=== PATIENT | male | born 1930 | race Caucasian/White ===

== ENCOUNTER 2016-07-12 14:39 | Inpatient (IN) | payer MEDICARE, BC ==
[2016-07-12] MEDS ORDERED: IV VANCOMYCIN PER PHARMACY 1 EACH MISC MISCELLANE PRN (17:48)
[2016-07-12] MEDS ORDERED: VANCOMYCIN 2,000 MG in SODIUM CHLORIDE 0.9% 500 ML IVPB ONE (18:00)
[2016-07-12 18:19] LABS: Basophils # (A) 0.1 k/uL (0-0.2); Basophils % (A) 1 %; CH 32.9; CHCM 34.5; Eosinophils # (A) 0.3 k/uL (0-0.7); Eosinophils % (A) 4 %; HCT 42.9 % (39.0-53.0); HDW 2.52; HGB 14.4 gm/dL (13.0-17.5); Luc # (Auto) 0.13; Luc % (Auto) 2; Lymphocytes # (A) 1.8 k/uL (1.0-4.8); Lymphocytes % (A) 26 %; MCH 32.3 pg (25.0-35.0); MCHC 33.6 g/dL (31.0-37.0); Mean Platelet Volume 7.5; Monocytes # (A) 0.6 k/uL (0-1.0); Monocytes % (A) 8 %; Neutrophils # (A) 4.2 k/uL (1.3-7.7); Neutrophils % (A) 60 %; RBC 4.47 m/uL (4.30-5.90); RDW 13.6 % (11.5-15.5); WBC (Perox) 7.04
[2016-07-12 18:27] LABS: ALT 29 U/L (21-72); AST 22 U/L (17-59); Alkaline Phosphatase 71 U/L (38-126); Anion Gap 9 mmol/L; Blood Urea Nitrogen 20 mg/dL (9-20); Calcium 8.1 mg/dL (8.4-10.2); Carbon Dioxide 29 mmol/L (22-30); Chloride 102 mmol/L (98-107); Glucose 99 mg/dL (74-99); Non-African American GFR(MDRD) >60 (>60 ml/min/1.73 sqM); Potassium 3.6 mmol/L (3.5-5.1); Sodium 140 mmol/L (137-145); Total Bilirubin 1.3 mg/dL (0.2-1.3); Total Protein 6.5 g/dL (6.3-8.2)
[2016-07-12] MEDS: SODIUM CHLORIDE 0.9% 1,000 ML IV SCH (18:44)
[2016-07-12 19:17] LABS: Erythrocyte Sedimentation Rate 19 mm/hr (0-15)
[2016-07-12] MEDS: FAMOTIDINE 20 MG TAB PO SCH (20:30)
[2016-07-12] MEDS: FUROSEMIDE 40 MG TAB PO SCH (20:32)
[2016-07-12] MEDS: POTASSIUM CHLORIDE ER 20 MEQ TAB.ER PO SCH (20:32)
[2016-07-12] MEDS: diphenhydrAMINE 50 MG/ML 1 ML VIAL IVP PRN (22:21)
[2016-07-12] MEDS: CLINDAMYCIN 600 MG in DEXTROSE 5% IN WATER 50 ML IVPB SCH ×2 (23:54)
[2016-07-13] MEDS: diphenhydrAMINE 50 MG/ML 1 ML VIAL IVP PRN (04:21)
[2016-07-13] MEDS: CLINDAMYCIN 600 MG in DEXTROSE 5% IN WATER 50 ML IVPB SCH ×2 (05:43)
[2016-07-13] MEDS: LEVOTHYROXINE 75 MCG TAB PO SCH (05:43)
[2016-07-13] MEDS ORDERED: VANCOMYCIN 2,000 MG in SODIUM CHLORIDE 0.9% 500 ML IVPB SCH (08:00)
--- NOTE | 2016-07-13 08:35 | HP ---
DATE OF ADMISSION: CHIEF COMPLAINT: An 86-year-old white male with significant severe cellulitis of the entire bilateral legs from the mid thighs down to the toes. HISTORY OF PRESENT ILLNESS: This 86-year-old white male with past medical history of hypertension, hypothyroidism and possible lymphedema presents with significant redness, swelling of the entire from the toes all the way up to the mid thighs bilaterally of significant and severe nature who has a large amount of edema at which time patient was admitted for IV vancomycin antibiotics and possibly a PICC line placement. Home medications include: 1. Clindamycin orally. 2. Klor-Con 20 mEq b.i.d. 3. Zestril 2.5 daily. 4. Synthroid 150 mcg daily. 5. Lasix 40 mg b.i.d. 6. Hydrocortisone cream topically b.i.d. SOCIAL HISTORY: He lives at the [facility]. Other social history, please see old chart. SURGERIES: See old chart. REVIEW OF SYSTEMS: Fourteen-point review of systems negative except for the skin as mentioned above. PHYSICAL EXAM: A disheveled, elderly looking gentleman who looks older than his stated age. Blood pressure is 120s to 130s over 60s to 70s. O2 sat is 94% to 95% on room air. Pulse is 70 to 74. Respiratory rate 16 to 18. Temperature 98.5. CARDIOVASCULAR: S1, S2. Lungs show wheezes x4. ENT: Within normal limits. Lungs show scattered wheeze x4. PSYCH: Fair mood and affect. INTEGUMENT: Shows severe redness 3+ pedal edema from the toes up to the mid thighs with significant redness, erythema with scaliness of the entire mid thigh all the way down to the toes bilaterally, significant and severe in nature with lymphedema-type changes. ABDOMEN: Distended due to obesity. He has a large ventral hernia in the mid abdomen region. PSYCH: He is alert and oriented x3. ENT: He has poor dentition. OPHTHALMOLOGIC: Pupils equal, round and reactive to light and accommodation. No scleral icterus. His BMI is over 40. His albumin level is low. ASSESSMENT: 1. Severe cellulitis and lymphedema-type changes to the extremities, IV vancomycin has been ordered. 2. Moderate protein calorie malnutrition. 3. Hypertension. 4. Hypothyroidism. 5. Ventral hernia. 6. Suspect possibly chronic obstructive pulmonary disease. Will order a chest x-ray on the patient and x-rays of his feet. Arterial Dopplers also have been ordered of his legs.
[2016-07-13] MEDS: SODIUM CHLORIDE 0.9% 1,000 ML IV SCH ×2 (09:49→22:07)
[2016-07-13] MEDS: POTASSIUM CHLORIDE ER 20 MEQ TAB.ER PO SCH ×2 (09:50→21:48)
[2016-07-13] MEDS: FUROSEMIDE 40 MG TAB PO SCH ×2 (09:50→21:48)
[2016-07-13] MEDS: LISINOPRIL 2.5 MG TAB PO SCH (09:50)
--- NOTE | 2016-07-13 12:02 | P.PN ---
Subjective 86-year-old gentleman being seen on rounds this morning. This is a follow-up visit on gentleman who was a direct admission from Dr. Hdz's office the patient was being seen for severe cellulitis involving the bilateral legs from mid thigh down to the toes with increase edema. Patient has a significant amount of lymphedema which the patient states he has had swelling in his legs for years but the swelling has become more increased with significant redness noted. The bilateral legs significant swelling noted dry scaly skin noted. Patient has on bilateral compression stockings which have been removed to inspect the skin the left great toe small ulcerative area noted slight odor scant amount of drainage Objective - Vital Signs Vital signs: Vital Signs Temp 99.1 F 07/13/16 07:00 Pulse 56 L 07/13/16 07:00 Resp 20 07/13/16 07:00 BP 112/70 07/13/16 07:00 Pulse Ox 94 L 07/13/16 07:00 Intake & Output 07/12/16 07/13/16 07/13/16 18:59 06:59 18:59 Intake Total 200 Balance 200 Weight 127.5 kg Intake: Oral 200 Other: Voiding Method Toilet Toilet Toilet Diaper Diaper # Voids 2 - Exam GENERAL APPEARANCE: 86-year-old male hard of hearing patient is alert, oriented , in no acute distress. VITAL SIGNS: Reviewed HEENT: Head is normocephalic and atraumatic. Pupils are equal and reactive. The nares are patent. Oropharynx is clear without lesions. NECK: Supple without lymphadenopathy. Traches midline. HEART: S1, S2. Regular rate and rhythm. No murmur noted LUNGS: No crackles or wheezes are heard. Sats are 94% on room air bilateral adequate air entry ABDOMEN: Soft, obese nontender, nondistended with good bowel sounds. No peritoneal signs. No palpable organomegaly or masses. Incontinent a urine EXTREMITIES: Upper extremities unremarkable the bilateral lower extremities from mid thigh down to the toes significant edema with dry scaly skin noted with redness . Radial pedal pulses are 2/4 bilaterally. NEUROLOGICAL: No focal deficits. Strength and sensation are grossly intact. - Labs CBC & Chem 7: 07/12/16 17:55 07/12/16 17:55 Labs: Abnormal Lab Results - Last 24 Hours (Table) 07/12/16 07/12/16 Range/Units 17:55 17:55 ESR 19 H (0-15) mm/hr Calcium 8.1 L (8.4-10.2) mg/dL Albumin 3.4 L (3.5-5.0) g/dL Assessment and Plan Plan: Impression Present on admission bilateral mid thigh to toes severe cellulitis with lymphedema changes Hypothyroid on supplements Hypertension Failed outpatient treatment for cellulitis bilateral lower extremities Hearing deficit Chronic urinary incontinence Plan Arterial Doppler studies ordered follow up on results Consult vascular service Dr. Rosario Consult infectious disease recommendations for IV antibiotics possible PICC line placement Consult infectious disease for wound care Resume home meds as appropriate Check labs in the morning DVT and GI prophylaxis Further recommendations pending will follow The above dictated assessment and findings were discussed with dr hdz . Impression and the plan of care have been dictated as directed. Madeline Kellogg nurse practitioner acting as a scribe for dr hdz
[2016-07-13 12:33] LABS: Hemoglobin A1C 5.2 % (4.2-6.1)
[2016-07-13] MEDS: ceFAZolin 2 GM in SODIUM CHLORIDE 0.9% 100 ML IVPB SCH ×3 (12:33→23:04)
[2016-07-13] MEDS: HEPARIN SODIUM,PORCINE 5,000 UNIT/ML 1 ML VIAL SQ SCH ×3 (12:33→23:04)
--- NOTE | 2016-07-13 14:00 | XR ---
EXAMINATION TYPE: XR chest 2V DATE OF EXAM: 07/13/2016 11:41 AM COMPARISON: 09/04/2012 HISTORY: 86-year-old male COPD and lower extremity swelling TECHNIQUE: Frontal and lateral views FINDINGS: Heart is borderline enlarged. Mild interstitial prominence is unchanged. Some strandy bibasilar atele ctasis. No consolidation or pleural effusion. IMPRESSION: Borderline heart size. There are chronic changes without acute process identified.
--- NOTE | 2016-07-13 19:53 | CONS ---
DATE OF CONSULTATION: 07/13/2016 REASON FOR CONSULTATION: Bilateral lower extremity cellulitis. HISTORY OF PRESENT ILLNESS: The patient is an 86-year-old male who has been sent to the ER from Dr. Jama's office with significant swelling or redness of bilateral lower extremity. 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 Currently under care of Dr. Jama. He visited to him with swelling and redness of his leg that has been going on for more than a week now. The patient has been complaining of some itching and pain to the leg area and a slight open area, which is draining some clear fluid with more pain described as dull 3 to 4 out of 10 and no radiation. Patient denied any fever. Some chills. The patient was diagnosed with bilateral lower extremity cellulitis. The patient was admitted to the hospital directly and was started on vancomycin; however, he was getting a dose of 2 grams at slightly faster rate and ended up developing significant itching. Vancomycin was discontinued. He was started on clindamycin. I was asked to see the patient for further recommendation regarding antibiotic therapy. REVIEW OF SYSTEMS: CONSTITUTIONAL: Positive for weakness. No fever or chills. EYES: No complaint. ENT: No complaint. RESPIRATORY: No complaint. GENITOURINARY: No complaint. GASTROINTESTINAL: No complaint. MUSCULOSKELETAL: No complaint. INTEGUMENTARY: As per HPI. PSYCHOLOGICAL: No complaint. ENDOCRINAL: No complaint. NEUROLOGICAL: No complaint. PAST MEDICAL HISTORY: Significant for hypertension, hypothyroidism, prostate disorder, and also chronic lower extremity venostasis dermatitis. PAST SURGICAL HISTORY: Prostate surgery. SOCIAL HISTORY: No history of smoking, drinking or drug abuse. Currently lives at [facility]. FAMILY HISTORY: No pertinent findings were noticed. ALLERGIES: AZITHROMYCIN AND PENICILLIN with rash. No history of anaphylaxis. VANCOMYCIN documented following last night's reaction. Medications currently include the patient is on clindamycin, Benadryl, Pepcid, Lasix, heparin, Synthroid, Zestril, K-Dur. On examination, blood pressure is 133/79 with a pulse of 71, temperature 99.8. He is 95% on room air. General description is an elderly male, lying in bed in no distress. No tachypnea or accessory muscles of respiration use. HEENT examination showed no pallor or scleral icterus. Oral mucous membrane dry. NECK: Trachea central. There is no thyromegaly. LUNGS: Unlabored breathing. Clear to auscultation anteriorly. HEART: S1, S2. Regular rate and rhythm. ABDOMEN: Soft. No tenderness. EXTREMITIES: Mild right lower extremity significant venostasis dermatitis with some erythema slightly warm to touch. Superficial ulceration. No significant slough tissue. SKIN: No rash or mass palpable. NEUROLOGICAL: Patient awake, alert, oriented x3. Mood and affect normal. LABS: Hemoglobin is 14.4, white count of 7 with a BUN of 20, creatinine 1.07. Electrolytes have been normal. Liver enzymes are normal. DIAGNOSTIC IMPRESSION AND PLAN: 1. Patient with bilateral lower extremity venostasis dermatitis with secondary cellulitis more likely from Gram-positive skin linnette in a patient who did have diffuse swelling and redness likely a streptococcal disease, clinically suspected for MRSA infection. 2. 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 PLAN: 1. Vancomycin can be taken off the patient's allergy chart. 2. Will discontinue clindamycin. 3. Will start the patient on cefazolin 2 grams q.8h. 4. Recommend whirlpool therapy to bilateral legs daily. Afterwards will recommend Jose wrap to keep the swelling down. 5. Will follow up on the clinical condition and cultures to further adjust the medication if needed. Family was present at the bedside. Their questions and concerns were answered.
[2016-07-13] MEDS: FAMOTIDINE 20 MG TAB PO SCH (21:48)
[2016-07-14] MEDS: LEVOTHYROXINE 75 MCG TAB PO SCH (06:37)
[2016-07-14] MEDS: ceFAZolin 2 GM in SODIUM CHLORIDE 0.9% 100 ML IVPB SCH ×2 (08:23→18:18)
[2016-07-14] MEDS: HEPARIN SODIUM,PORCINE 5,000 UNIT/ML 1 ML VIAL SQ SCH ×2 (08:23→18:18)
[2016-07-14] MEDS: LISINOPRIL 2.5 MG TAB PO SCH (08:24)
[2016-07-14] MEDS: POTASSIUM CHLORIDE ER 20 MEQ TAB.ER PO SCH ×2 (08:24→20:12)
[2016-07-14] MEDS: FUROSEMIDE 40 MG TAB PO SCH ×2 (08:24→20:12)
[2016-07-14 08:52] LABS: ALT 27 U/L (21-72); AST 18 U/L (17-59); Alkaline Phosphatase 66 U/L (38-126); Anion Gap 9 mmol/L; Blood Urea Nitrogen 15 mg/dL (9-20); Calcium 7.7 mg/dL (8.4-10.2); Carbon Dioxide 26 mmol/L (22-30); Chloride 107 mmol/L (98-107); Glucose 111 mg/dL (74-99); Non-African American GFR(MDRD) 57 (>60 ml/min/1.73 sqM); Potassium 3.6 mmol/L (3.5-5.1); Sodium 142 mmol/L (137-145); Total Bilirubin 1.1 mg/dL (0.2-1.3); Total Protein 5.7 g/dL (6.3-8.2)
--- NOTE | 2016-07-14 09:57 | P.GSCN ---
History of Present Illness Consult date: 07/14/16 Reason for Consult: Bilateral lower extremity cellulitis Requesting physician: Riley Jmaa History of present illness: This is an 86-year-old gentleman who was admitted with progressive refractory swelling and redness of both lower legs. He has a long history of swelling. He has however become much more red and painful in recent days. He states that he is not a diabetic. He is a nonsmoker. Review of Systems All systems: negative - Constitutional Reports weakness, Denies chronic pain, Denies fever, Denies weight loss - EENT Eyes: denies blurred vision Ears, nose, mouth and throat: Denies dysphagia - Cardiovascular Reports decreased exercise tolerance, Reports dyspnea on exertion, Reports edema , Denies chest pain, Denies orthopnea, Denies paroxysmal nocturnal dyspnea, Denies shortness of breath - Respiratory Denies cough, Denies cough with sputum, Denies hemoptysis - Gastrointestinal Reports as per HPI, Denies coffee ground emesis, Denies hematochezia, Denies jaundice, Denies melena - Genitourinary Denies dysuria, Denies hematuria - Integumentary Denies rash, Denies unusual bruising - Neurological Denies headaches, Denies syncope - Hematologic/Lymphatic Denies easy bleeding, Denies easy bruising, Denies lymphedema - Allergic/Immunologic Denies anaphylaxis, Denies angioedema, Denies urticaria Past Medical History Past Medical History: Cancer, Hypertension, Memory Impairment, Prostate Disorder , Thyroid Disorder Additional Past Medical History / Comment(s): PER PAST MEDICAL HX 2013:PROSTATE CANCER 2010(SX DONE), INCONT OF URINE WEARS A BRIEF, LYMPH EDEMA JUDY LEGS(LEGS WRAPPED), PVD, LT CATARACT-(PT DID'NT REMEBER THIS" History of Any Multi-Drug Resistant Organisms: None Reported Past Surgical History: Hernia Repair, Prostate Surgery Additional Past Surgical History / Comment(s): RT CATARACT(PT DID'NT REMEMEBR THIS) Past Anesthesia/Blood Transfusion Reactions: Motion Sickness Past Psychological History: No Psychological Hx Reported Additional Psychological History / Comment(s): 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"[facility]" Smoking Status: Never smoker Past Alcohol Use History: None Reported Past Drug Use History: None Reported - Past Family History Father Family Medical History: Unable to Obtain Mother Family Medical History: Unable to Obtain Medications and Allergies Home Medications Medication Instructions Recorded Confirmed Type Lisinopril [Zestril] 2.5 mg PO DAILY 06/10/15 07/12/16 History Clindamycin Unknown Dose 4 tab PO DAILY 07/12/16 07/12/16 History Furosemide [Lasix] 40 mg PO BID 07/12/16 07/12/16 History Hydrocortisone Cream 1 applic TOPICAL BID 07/12/16 07/12/16 History [Hydrocortisone 1% Cream] Levothyroxine Sodium [Synthroid] 150 mcg PO DAILY 07/12/16 07/12/16 History Potassium Chloride [Klor-Con 20] 20 meq PO BID 07/12/16 07/12/16 History Allergies Allergy/AdvReac Type Severity Reaction Status Date / Time azithromycin [From Zithromax] Allergy Unknown Verified 07/12/16 17:40 Penicillins Allergy Rash/Hives Verified 06/10/15 00:39 strawberry Allergy Rash/Hives Verified 06/10/15 00:39 vancomycin Allergy Rash/Hives Verified 07/12/16 22:15 Surgical - Exam Osteopathic Statement: *. No significant issues noted on an osteopathic structural exam other than those noted in the History and Physical/Consult. Vital Signs Temp Pulse Resp BP Pulse Ox 98.1 F 74 18 134/74 95 07/12/16 16:24 07/12/16 16:24 07/12/16 16:24 07/12/16 16:24 07/12/16 16:24 - General well developed, well nourished, no distress, obese - Eyes normal ocular movement, no icteric - ENT no hearing loss, no congestion - Neck no masses, no bruits, trachea midline - Respiratory normal expansion, normal respiratory effort, clear to auscultation - Cardiovascular Rhythm: regular - Abdomen Abdomen: soft, non tender, no guarding, no rigid, no rebound - Integumentary Both lower legs are ruborous from just below the knees. There is a lot of dry scaly slough skin. The swelling is drastically improved. There is no weeping at this time or open ulcerations. no rash, no abnormal pigmentation - Neurologic no disoriented, no combative - Musculoskeletal Utilizes a walker for ambulation - Psychiatric oriented to time, oriented to person, oriented to place, speech is normal, memory intact Results - Labs 07/12/16 17:55 07/14/16 08:13 Abnormal Lab Results - Last 24 Hours (Table) 07/14/16 Range/Units 08:13 Glucose 111 H (74-99) mg/dL Calcium 7.7 L (8.4-10.2) mg/dL Total Protein 5.7 L (6.3-8.2) g/dL Albumin 2.9 L (3.5-5.0) g/dL Diabetes panel 07/12/16 07/14/16 Range/Units 17:55 08:13 Sodium 142 (137-145) mmol/L Potassium 3.6 (3.5-5.1) mmol/L Chloride 107 (98-107) mmol/L Carbon Dioxide 26 (22-30) mmol/L BUN 15 (9-20) mg/dL Creatinine 1.21 (0.66-1.25) mg/dL Glucose 111 H (74-99) mg/dL Hemoglobin A1c 5.2 (4.2-6.1) % Calcium 7.7 L (8.4-10.2) mg/dL AST 18 (17-59) U/L ALT 27 (21-72) U/L Alkaline Phosphatase 66 (38-126) U/L Total Protein 5.7 L (6.3-8.2) g/dL Albumin 2.9 L (3.5-5.0) g/dL Calcium panel 07/14/16 Range/Units 08:13 Calcium 7.7 L (8.4-10.2) mg/dL Albumin 2.9 L (3.5-5.0) g/dL Pituitary panel 07/14/16 Range/Units 08:13 Sodium 142 (137-145) mmol/L Potassium 3.6 (3.5-5.1) mmol/L Chloride 107 (98-107) mmol/L Carbon Dioxide 26 (22-30) mmol/L BUN 15 (9-20) mg/dL Creatinine 1.21 (0.66-1.25) mg/dL Glucose 111 H (74-99) mg/dL Calcium 7.7 L (8.4-10.2) mg/dL Adrenal panel 07/14/16 Range/Units 08:13 Sodium 142 (137-145) mmol/L Potassium 3.6 (3.5-5.1) mmol/L Chloride 107 (98-107) mmol/L Carbon Dioxide 26 (22-30) mmol/L BUN 15 (9-20) mg/dL Creatinine 1.21 (0.66-1.25) mg/dL Glucose 111 H (74-99) mg/dL Calcium 7.7 L (8.4-10.2) mg/dL Total Bilirubin 1.1 (0.2-1.3) mg/dL AST 18 (17-59) U/L ALT 27 (21-72) U/L Alkaline Phosphatase 66 (38-126) U/L Total Protein 5.7 L (6.3-8.2) g/dL Albumin 2.9 L (3.5-5.0) g/dL Assessment and Plan (1) Bilateral lower leg cellulitis Status: Acute Plan: This patient has done very nicely with inpatient therapy. He has been on antibiotics. He is currently afebrile. The swelling in the legs is very much controlled. At this time I would recommend that his therapies be focused on limiting the swelling. #1 on the short-term basis I would continue to keep the legs wrapped with double length 4 inch Jose wraps. #2 on the long-term I would consider having him fit for CircAid or comprafit Velcro compression stockings, which are bit easier to applied. #3 I would keep the patient with legs elevated whenever he is not ambulating and whenever it is not essential for him to be upright to eat or go to the bathroom. #4 I would hold on the whirlpools for now, these tend to dry out the skin and that can result in some cracks, especially on the feet. #5 the skin of the feet and lower legs can be moistened with Eucerin cream or similar product #6 antibiotics could be transferred to oral or discontinued. I have discussed this with the patient and he appears to understand the recommendations. Prognosis is somewhat guarded in view of his obesity, age, and somewhat debilitated status.
[2016-07-14] MEDS: SODIUM CHLORIDE 0.9% 1,000 ML IV SCH ×2 (10:24→23:20)
[2016-07-14] MEDS ORDERED: MINERAL OIL-WHITE PETROLATUM 120 GM JAR TOPICAL PRN (12:02)
--- NOTE | 2016-07-14 14:00 | P.PN ---
Subjective 86-year-old male being seen on rounds this morning is currently resting in bed. The dressings to the bilateral lower extremities removed. There is a decrease in the swelling compared to omission in the bilateral lower legs. Vascular's recommendations noted. There recommending keep in the legs wrapped. Long-term would consider having patient fit for citcaid or alcohol compression stockings which might be easier for the patient to apply. In recommending moisturizing the bilateral lower extremities with eucerin ointment or similar product. This was discussed with the patient patient did verbalize an understanding. In addition the patient is being followed by infectious disease Dr. Walker. Recommendations were reviewed. We'll continue with the current plan of care will continue with the IV as ordered Objective - Vital Signs Vital signs: Vital Signs Temp 98.3 F 07/14/16 07:00 Pulse 61 07/14/16 07:00 Resp 24 07/14/16 07:00 BP 124/66 07/14/16 07:00 Pulse Ox 96 07/14/16 07:00 Intake & Output 07/13/16 07/14/16 07/14/16 18:59 06:59 18:59 Intake Total 200 500 Balance 200 500 Intake: Oral 200 500 Other: Voiding Method Toilet Toilet Toilet Diaper Diaper Diaper # Voids 3 4 # Bowel Movements 2 - Exam Physical exam 86-year-old male resting comfortably in bed appears in no acute distress pleasant cooperative oriented 3 hard of hearing Lungs essentially clear with adequate air movement on room air no cough Heart S1-S2 audible and regular Abdomen obese soft nontender reports no frequent stooling no nausea vomiting Extremities there is a significant improvement in the edema to the bilateral lower extremities bilateral redness persist. The skin is dry and scaly. No calf tenderness - Labs CBC & Chem 7: 07/12/16 17:55 07/14/16 08:13 Labs: Abnormal Lab Results - Last 24 Hours (Table) 07/14/16 Range/Units 08:13 Glucose 111 H (74-99) mg/dL Calcium 7.7 L (8.4-10.2) mg/dL Total Protein 5.7 L (6.3-8.2) g/dL Albumin 2.9 L (3.5-5.0) g/dL Assessment and Plan Plan: Impression Present on admission bilateral mid thigh to toes severe cellulitis with lymphedema changes Hypothyroid on supplements Hypertension Failed outpatient treatment for cellulitis bilateral lower extremities Hearing deficit Chronic urinary incontinence Plan Arterial Doppler studies ordered follow up on results Recommendations cardiovascular reviewed noted and appreciated Keep legs elevated kefzol 2 g IV as ordered per infectious disease Resume home meds as appropriate Check labs in the morning DVT and GI prophylaxis Further recommendations pending will follow The above dictated assessment and findings were discussed with dr hdz . Impression and the plan of care have been dictated as directed. Madeline Kellgog nurse practitioner acting as a scribe for dr hdz
[2016-07-14] MEDS: FAMOTIDINE 20 MG TAB PO SCH (20:12)
[2016-07-15] MEDS: ceFAZolin 2 GM in SODIUM CHLORIDE 0.9% 100 ML IVPB SCH ×4 (00:18→23:06)
[2016-07-15] MEDS: HEPARIN SODIUM,PORCINE 5,000 UNIT/ML 1 ML VIAL SQ SCH ×4 (00:19→23:07)
[2016-07-15] MEDS: LEVOTHYROXINE 75 MCG TAB PO SCH (06:35)
[2016-07-15] MEDS: LISINOPRIL 2.5 MG TAB PO SCH (08:09)
[2016-07-15] MEDS: POTASSIUM CHLORIDE ER 20 MEQ TAB.ER PO SCH ×2 (08:09→20:17)
[2016-07-15] MEDS: FUROSEMIDE 40 MG TAB PO SCH ×2 (08:09→20:17)
--- NOTE | 2016-07-15 08:15 | PN ---
DATE OF SERVICE: 07/14/2016 Reason for follow-up is bilateral lower extremity venostasis ulcer and cellulitis. INTERVAL HISTORY: The patient is afebrile. Has been breathing comfortably. Denies any worsening pain in the leg area. Denies having any chest pain, shortness of breath or cough. No abdominal pain or diarrhea. On examination, blood pressure is 150/80 with a pulse of 62, temperature 97.8. He is 97% on room air. General description is an elderly male, lying in bed in no distress. RESPIRATORY SYSTEM: Unlabored breathing. Clear to auscultation anteriorly. HEART: S1, S2. Regular rate and rhythm. ABDOMEN: Soft, no tenderness. Bilateral lower extremity swelling and redness and some dry skin with some skin breakdown on the toes area, but no purulence. LABS: BUN of 15, creatinine 1.21. DIAGNOSTIC IMPRESSION AND PLAN: Patient with bilateral lower extremity venostasis ulcer and cellulitis. Patient at this time will continue with the cefazolin along with an Jose wrap to keep the swelling down and Aquacel silver dressing to the open area. Will re-evaluate the patient tomorrow. Continue supportive care. PEPE
[2016-07-15 09:03] LABS: ALT 25 U/L (21-72); AST 21 U/L (17-59); Alkaline Phosphatase 60 U/L (38-126); Anion Gap 8 mmol/L; Blood Urea Nitrogen 15 mg/dL (9-20); Calcium 7.7 mg/dL (8.4-10.2); Carbon Dioxide 27 mmol/L (22-30); Chloride 107 mmol/L (98-107); Glucose 118 mg/dL (74-99); Non-African American GFR(MDRD) >60 (>60 ml/min/1.73 sqM); Potassium 3.8 mmol/L (3.5-5.1); Sodium 142 mmol/L (137-145); Total Bilirubin 1.1 mg/dL (0.2-1.3); Total Protein 5.7 g/dL (6.3-8.2)
[2016-07-15] MEDS: SODIUM CHLORIDE 0.9% 1,000 ML IV SCH (12:29)
[2016-07-15] MEDS: NYSTATIN 100,000UNIT/GM CREAM 30 GM TUBE TOPICAL SCH (16:45)
[2016-07-15] MEDS: TRIAMCINOLONE 0.1% CREAM 80 GM TUBE TOPICAL SCH ×2 (16:45→20:17)
[2016-07-15] MEDS: FAMOTIDINE 20 MG TAB PO SCH (20:17)
[2016-07-16] MEDS: SODIUM CHLORIDE 0.9% 1,000 ML IV SCH ×2 (02:00→15:12)
[2016-07-16] MEDS: LEVOTHYROXINE 75 MCG TAB PO SCH (06:44)
[2016-07-16] MEDS: POTASSIUM CHLORIDE ER 20 MEQ TAB.ER PO SCH ×2 (07:44→20:34)
[2016-07-16] MEDS: HEPARIN SODIUM,PORCINE 5,000 UNIT/ML 1 ML VIAL SQ SCH ×3 (07:44→23:24)
[2016-07-16] MEDS: FUROSEMIDE 40 MG TAB PO SCH ×2 (07:44→20:34)
[2016-07-16] MEDS: ceFAZolin 2 GM in SODIUM CHLORIDE 0.9% 100 ML IVPB SCH ×3 (07:44→23:24)
[2016-07-16] MEDS: LISINOPRIL 2.5 MG TAB PO SCH (07:44)
[2016-07-16 08:54] LABS: ALT 25 U/L (21-72); AST 25 U/L (17-59); Alkaline Phosphatase 63 U/L (38-126); Anion Gap 10 mmol/L; Blood Urea Nitrogen 17 mg/dL (9-20); Calcium 7.9 mg/dL (8.4-10.2); Carbon Dioxide 25 mmol/L (22-30); Chloride 107 mmol/L (98-107); Glucose 90 mg/dL (74-99); Non-African American GFR(MDRD) >60 (>60 ml/min/1.73 sqM); Sodium 142 mmol/L (137-145); Total Bilirubin 0.8 mg/dL (0.2-1.3); Total Protein 5.6 g/dL (6.3-8.2)
--- NOTE | 2016-07-16 09:02 | PN ---
DATE OF SERVICE: 07/15/2016 Reason for follow-up is bilateral lower extremity cellulitis and ulceration. INTERVAL HISTORY: The patient is afebrile. Has been breathing comfortably. Denies significant chest pain, shortness of breath or cough. No abdominal pain or any worsening pain in his bilateral legs area. No drainage. On examination, blood pressure is 141/79, pulse of 55, temperature is 97.6, he is 96% on room air. General description is an elderly male, lying in bed in no distress. RESPIRATORY SYSTEM: Unlabored breathing. Clear to auscultation anteriorly. HEART: S1, S2. Regular rate and rhythm. ABDOMEN: Soft, no tenderness. Mild ulcer with erythematous patches. No worsening. LABS: BUN of 15, creatinine 1.04. DIAGNOSTIC IMPRESSION AND PLAN: Patient with bilateral lower extremity venostasis dermatitis with a question of cellulitis. At this time we will apply Mycolog cream to the erythematous patches on the leg followed by an Jose wrap to keep the swelling down. Aquacel Silver to the superficial ulceration. Continue supportive care. MTDD
--- NOTE | 2016-07-16 11:28 | PN ---
CHIEF COMPLAINT: White male with extreme bilateral lower extremity venostasis ulcers, cellulitis, states he is improving with decreased redness and swelling. Blood pressure 150s over 80, temperature 97, pulse 60s, respiratory rate ( ). CARDIOVASCULAR: Scattered wheeze. HEART: S1, S2. ABDOMEN: Soft. EXTREMITIES: Shows some skin breakdown in the toe areas. Bilateral lower extremity swelling and redness. Some skin dryness. Creatinine 1.21, BUN 15. ASSESSMENT: Bilateral lower extremity venostasis ulcers and cellulitis from the knees down. Continue with Aquacel silver to open areas. Jose wraps will be given. IV antibiotics will be given. Please see further orders.
[2016-07-16] MEDS: TRIAMCINOLONE 0.1% CREAM 80 GM TUBE TOPICAL SCH ×2 (11:50→20:33)
[2016-07-16] MEDS: NYSTATIN 100,000UNIT/GM CREAM 30 GM TUBE TOPICAL SCH ×2 (11:51→20:34)
[2016-07-16] MEDS: FAMOTIDINE 20 MG TAB PO SCH (20:34)
[2016-07-17 02:26] VITALS: RESP 20
[2016-07-17] MEDS: SODIUM CHLORIDE 0.9% 1,000 ML IV SCH ×2 (05:01→06:40)
[2016-07-17] MEDS: LEVOTHYROXINE 75 MCG TAB PO SCH (06:39)
[2016-07-17 07:23] VITALS: BP 110/56; PULSE 57; TEMP 96
[2016-07-17 08:17] LABS: ALT 30 U/L (21-72); AST 30 U/L (17-59); Alkaline Phosphatase 60 U/L (38-126); Anion Gap 8 mmol/L; Blood Urea Nitrogen 16 mg/dL (9-20); Calcium 7.8 mg/dL (8.4-10.2); Carbon Dioxide 26 mmol/L (22-30); Chloride 107 mmol/L (98-107); Glucose 96 mg/dL (74-99); Non-African American GFR(MDRD) >60 (>60 ml/min/1.73 sqM); Potassium 3.7 mmol/L (3.5-5.1); Sodium 141 mmol/L (137-145); Total Bilirubin 0.8 mg/dL (0.2-1.3); Total Protein 5.6 g/dL (6.3-8.2)
[2016-07-17] MEDS: ceFAZolin 2 GM in SODIUM CHLORIDE 0.9% 100 ML IVPB SCH (09:21)
[2016-07-17] MEDS: HEPARIN SODIUM,PORCINE 5,000 UNIT/ML 1 ML VIAL SQ SCH (09:22)
[2016-07-17] MEDS: LISINOPRIL 2.5 MG TAB PO SCH (09:23)
[2016-07-17] MEDS: FUROSEMIDE 40 MG TAB PO SCH (09:23)
[2016-07-17] MEDS: POTASSIUM CHLORIDE ER 20 MEQ TAB.ER PO SCH (09:23)
--- NOTE | 2016-07-17 11:56 | P.DS ---
Providers Date of admission: 07/12/16 16:03 Expected date of discharge: 07/17/16 Attending physician: Riley Jama Consults: 07/12/16 17:17 Consult Physician Routine Consulting Provider: Carmel Walker Consult Reason/Comments: bilateral leg cellulitis Do you want consulting provider notified?: Already Contacted 07/13/16 10:12 Consult Physician Urgent Consulting Provider: Darvin Rosario Consult Reason/Comments: Recommendations lymphedema bilateral lower extremities Do you want consulting provider notified?: Yes Primary care physician: [facility] Course: his is a follow-up visit on jeanna who was a direct admission from Dr. Jama's office the patient was being seen for severe cellulitis involving the bilateral legs from mid thigh down to the toes with increase edema. Patient has a significant amount of lymphedema which the patient states he has had swelling in his legs for years but the swelling has become more increased with significant redness noted. The bilateral legs significant swelling noted dry scaly skin noted. On admission Patient has on bilateral compression stockings which have been removed to inspect the skin the left great toe small ulcerative area noted slight odor scant amount of drainage Infectious disease did participate in the plan of care patient was seen by Dr. Walker with recommendations noted and appreciated. Additionally vascular Dr. Rosario see patient for the progressive refractory swelling and redness involving the bilateral lower extremities. Vascular recommended that there would be no vascular intervention at this time they would recommend the patient keep his legs elevated at all times. Consider having the patient fitted for compraft Velcro compression stockings. Keep the skin in the lower extremities moist using Kenalog cream daily. PT OT did participate in the plan of care. The family was requesting that the patient be transferred to subacute rehab. [facility]. Patient was felt to be stable and appropriate proceed with a discharge Impression Present on admission bilateral mid thigh to toes severe cellulitis with lymphedema changes Hypothyroid on supplements Hypertension Failed outpatient treatment for cellulitis bilateral lower extremities Hearing deficit Chronic urinary incontinence Present on admission increase edema with progressive refractory swelling and redness involving the both lower extremities Bilateral lower extremities venous stasis dermatitis with cellulitis not ruled out The above dictated assessment and findings were discussed with Dr. Jama Impression and the plan of care have been dictated as directed. Madeline Kellogg nurse practitioner acting as a scribe for Dr. Jama Plan - Discharge Summary New Discharge Prescriptions: Cephalexin [Keflex] 500 mg PO Q8HR #30 cap Discharge Medication List Lisinopril [Zestril] 2.5 mg PO DAILY 06/10/15 [History] Furosemide [Lasix] 40 mg PO BID 07/12/16 [History] Levothyroxine Sodium [Synthroid] 150 mcg PO DAILY 07/12/16 [History] Potassium Chloride [Klor-Con 20] 20 meq PO BID 07/12/16 [History] Cephalexin [Keflex] 500 mg PO Q8HR #30 cap 07/17/16 [Rx] Heparin Sodium,Porcine [Heparin Sodium] 5,000 unit SQ Q8HR vial 07/17/16 [Rx] Nystatin 100,000Unit/gm Cream [Mycostatin Cream] 1 applic TOPICAL BID applic [Rx] Triamcinolone 0.1% Cream [Kenalog] 1 applic TOPICAL BID #0 applic 07/17/16 [Rx] Follow up Appointment(s)/Referral(s): Riley Jama MD [Primary Care Provider] - 07/18/16 Discharge Disposition: TRANSFER TO SNF/ECF
[2016-07-17] MEDS: TRIAMCINOLONE 0.1% CREAM 80 GM TUBE TOPICAL SCH (13:10)
[2016-07-17] MEDS: NYSTATIN 100,000UNIT/GM CREAM 30 GM TUBE TOPICAL SCH (13:10)
--- NOTE | 2016-07-17 14:40 | PN ---
DATE OF SERVICE: 07/17/2016 Reason for follow-up: Bilateral lower extremity cellulitis and wound. INTERVAL HISTORY: The patient is afebrile. He has been feeling better, breathing comfortably. Denies significant chest pain, cough, no abdominal pain or any worsening pain in the legs area. On examination, blood pressure is 133/70 with a pulse of 59, temperature 97.4. He is 96% on room air. GENERAL DESCRIPTION: Is an elderly male up in the chair in no distress. RESPIRATORY SYSTEM: Unlabored breathing. Clear to auscultation anteriorly. HEART: S1, S2 regular rate and rhythm. ABDOMEN: soft, no tenderness. Bilateral legs have been wrapped up by the RN and did mention no redness or any drainage. LABS: BUN of 17, creatinine 0.97. DIAGNOSTIC IMPRESSION AND PLAN: Patient with bilateral lower extremity venostasis dermatitis as well as ulceration along with cellulitis , continue Cefazolin along with dressing and to reevaluate the wound tomorrow. Continue supportive care. PEPE
--- NOTE | 2016-07-17 19:29 | PN ---
DATE OF SERVICE: 07/16/2016 SUBJECTIVE: This is a white male who was admitted with severe cellulitis and lymphadenitis of the legs. He remains on IV Kefzol. He is getting wound dressing changes, Mycolog cream to the erythematous patches of the legs are being applied, Jose wraps, Aquacel Silver. Continuing on IV antibiotics. CARDIOVASCULAR: S1, S2. LUNGS: Clear. Scattered wheeze x4. GI: Soft. Blood pressure is 140s over 70s, pulse 50s, temperature 97.6, 96% on room air. HEART: Regular rate, rhythm. ABDOMEN: Soft. EXTREMITIES: Erythematous patches. Decreased swelling in the legs. Dr. Rosario's recommendations were reviewed. ASSESSMENT: 1. Acute cellulitis, lymphadenitis and open wounds of the legs, on IV antibiotics at this time and antibiotic cream and fungal cream. 2. Hypocalcemia, unclear etiology. 3. Protein-calorie malnutrition, moderate. Continue current treatment. Follow up in next 24 to 48 hours. Possible discharge.
--- NOTE | 2016-07-17 20:49 | PN ---
DATE OF SERVICE: 07/17/2016 REASON FOR FOLLOWUP: Bilateral lower extremity venostasis dermatitis and cellulitis. INTERVAL HISTORY: The patient is afebrile. He is feeling better, breathing comfortably. Denies any pain in his neck area. Denies any chest pain or shortness of breath or cough. No diarrhea. On examination, blood pressure is 110/56 with pulse of 87, temperature 96. He is 96% on room air. General description is an elderly male lying in bed in no distress. RESPIRATORY SYSTEM: Unlabored breathing. Clear to auscultation anteriorly. HEART: S1, S2. Regular rate and rhythm. ABDOMEN: Soft. No tenderness. Bilateral leg overall swelling and redness have improved. No drainage. LABS: BUN of 16, creatinine 0.99. DIAGNOSTIC IMPRESSION AND PLAN: Patient with bilateral lower extremity venostasis dermatitis and cellulitis showing overall improvement on cefazolin. Plan to finish therapy with p.o. Keflex along with Mycolog cream to the bilateral legs. Continue supportive care. Plan of care was discussed with the nurse practitioner for the primary team.
--- NOTE | 2016-07-19 11:51 | P.ARTDOP ---
Arterial Doppler LOWER EXTREMITY ARTERIAL DOPPLER: DATE OF SERVICE: 07/13/16 Reason for study: Cellulitis. Doppler waveforms: Multiphasic bilaterally throughout. Pulse volume recording: Fairly normal configuration. Pressure gradients: []. Ankle-brachial indices: []. Toe pressures: [] on the right, [] on the left Impression: Limited study as no pressures were taken. Waveforms look quite adequate and is suspected to be a normal study. Clinical correlation recommended..
== END 2016-07-17 14:27 | DRG 603 ==
LOC: 4MS4W 16:03
PROVIDERS: ADMIT Family Medicine; ATTEND Family Medicine
DX: L03.115 Cellulitis of right lower limb (principal); E44.0 Moderate protein-calorie malnutrition; L97.919 Non-pressure chronic ulcer of unspecified part of right lower leg with unspecified severity; L97.929 Non-pressure chronic ulcer of unspecified part of left lower leg with unspecified severity; E83.51 Hypocalcemia; J44.9 Chronic obstructive pulmonary disease, unspecified; E03.9 Hypothyroidism, unspecified; K43.9 Ventral hernia without obstruction or gangrene; I10 Essential (primary) hypertension; I73.9 Peripheral vascular disease, unspecified; I89.0 Lymphedema, not elsewhere classified; L03.116 Cellulitis of left lower limb; R32 Unspecified urinary incontinence; H91.90 Unspecified hearing loss, unspecified ear; I87.8 Other specified disorders of veins; I87.2 Venous insufficiency (chronic) (peripheral); Z79.899 Other long term (current) drug therapy; Z88.1 Allergy status to other antibiotic agents; Z88.0 Allergy status to penicillin; Z85.46 Personal history of malignant neoplasm of prostate
CPT/HCPCS: 71020; 80053; 80061; 82330; 83036; 83880; 84443; 85025; 85652; 93005; 93923

== ENCOUNTER 2016-09-21 11:15 | Emergency (ER) | payer MEDICARE, BC ==
[2016-09-21] MEDS ORDERED: SODIUM CHLORIDE 0.9% 1,000 ML IV STA (11:24)
[2016-09-21 12:02] LABS: Basophils # (A) 0.1 k/uL (0-0.2); Basophils % (A) 1 %; CH 33.4; CHCM 34.1; Eosinophils # (A) 0.3 k/uL (0-0.7); Eosinophils % (A) 4 %; HDW 2.53; HGB 13.6 gm/dL (13.0-17.5); Luc # (Auto) 0.19; Luc % (Auto) 3; Lymphocytes # (A) 1.7 k/uL (1.0-4.8); Lymphocytes % (A) 25 %; MCH 32.7 pg (25.0-35.0); MCHC 33.2 g/dL (31.0-37.0); MCV 98.5 fL (80.0-100.0); Mean Platelet Volume 6.7; Monocytes # (A) 0.5 k/uL (0-1.0); Monocytes % (A) 7 %; Neutrophils # (A) 4.1 k/uL (1.3-7.7); Neutrophils % (A) 61 %; RBC 4.16 m/uL (4.30-5.90); RDW 14.1 % (11.5-15.5); WBC 6.8 k/uL (3.8-10.6)
[2016-09-21 12:12] LABS: ALT 27 U/L (21-72); AST 24 U/L (17-59); Alkaline Phosphatase 72 U/L (38-126); Anion Gap 9 mmol/L; Blood Urea Nitrogen 21 mg/dL (9-20); Calcium 8.5 mg/dL (8.4-10.2); Carbon Dioxide 25 mmol/L (22-30); Chloride 106 mmol/L (98-107); Glucose 99 mg/dL (74-99); Magnesium 1.9 mg/dL (1.6-2.3); Non-African American GFR(MDRD) >60 (>60 ml/min/1.73 sqM); Potassium 3.8 mmol/L (3.5-5.1); Sodium 140 mmol/L (137-145); Total Bilirubin 0.9 mg/dL (0.2-1.3); Total Protein 6.6 g/dL (6.3-8.2)
--- NOTE | 2016-09-21 12:53 | US ---
EXAMINATION TYPE: US venous doppler duplex LE BI DATE OF EXAM: 09/21/2016 12:41 PM COMPARISON: NONE CLINICAL HISTORY: Pain. SIDE PERFORMED: Bilateral TECHNIQUE: The lower extremity deep venous system is examined utilizing real time linear array sonog cinthia with graded compression, doppler sonography and color-flow sonography. VESSELS IMAGED: External Iliac Vein (EIV) Common Femoral Vein Deep Femoral Vein Greater Saphenous Vein * Femoral Vein Popliteal Vein Small Saphenous Vein * Proximal Calf Veins (* superficial vessels) Patient of large body habitus with extensive swelling Right Leg: Negative for DVT Left Leg: Negative for DVT IMPRESSION: No evidence for DVT.
--- NOTE | 2016-09-21 13:48 | ED ---
Extremity Problem HPI - General Chief complaint: Extremity Problem,Nontraumatic Stated complaint: DVT Time Seen by Provider: 09/21/16 11:15 Source: patient, EMS, RN notes reviewed Mode of arrival: EMS - History of Present Illness Initial comments: This is a 86-year-old male who was sent in for evaluation for bilateral lower extremity swelling more so on the right than the left he denies any chest pain shortness breath fevers he does have occasional chills no other symptoms. MD Complaint: extremity pain, extremity swelling - Related Data Home Medications Medication Instructions Recorded Confirmed Lisinopril [Zestril] 2.5 mg PO DAILY 06/10/15 09/21/16 Furosemide [Lasix] 80 mg PO QAM 07/12/16 09/21/16 Levothyroxine Sodium [Synthroid] 150 mcg PO DAILY 07/12/16 09/21/16 Potassium Chloride [Klor-Con 20] 20 meq PO BID 07/12/16 09/21/16 Furosemide [Lasix] 40 mg PO AC-SUPPER 09/21/16 09/21/16 Sulfamethox-Tmp 800-160Mg [Bactrim 1 tab PO Q12HR 09/21/16 09/21/16 DS 800-160 mg] Previous Rx's Medication Instructions Recorded Clindamycin [Cleocin] 300 mg PO Q6H #40 capsule 09/21/16 Allergies Allergy/AdvReac Type Severity Reaction Status Date / Time azithromycin [From Zithromax] Allergy Unknown Verified 07/12/16 17:40 Penicillins Allergy Rash/Hives Verified 06/10/15 00:39 strawberry Allergy Rash/Hives Verified 06/10/15 00:39 vancomycin Allergy Rash/Hives Verified 07/12/16 22:15 Review of Systems ROS Statement: Those systems with pertinent positive or pertinent negative responses have been documented in the HPI. ROS Other: All systems not noted in ROS Statement are negative. Past Medical History Past Medical History: Cancer, Hypertension, Memory Impairment, Prostate Disorder , Thyroid Disorder Additional Past Medical History / Comment(s): PER PAST MEDICAL HX 2013:PROSTATE CANCER 2010(SX DONE), INCONT OF URINE WEARS A BRIEF, LYMPH EDEMA JUDY LEGS(LEGS WRAPPED), PVD, LT CATARACT-(PT DID'NT REMEBER THIS" History of Any Multi-Drug Resistant Organisms: None Reported Past Surgical History: Hernia Repair, Prostate Surgery Additional Past Surgical History / Comment(s): RT CATARACT(PT DID'NT REMEMEBR THIS) Past Anesthesia/Blood Transfusion Reactions: Motion Sickness Past Psychological History: No Psychological Hx Reported Additional Psychological History / Comment(s): PT STATED HE SERVED IN [employer]( [employer]), WORKED FOR [employer]. 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 Absent: scleral icterus, conjunctival injection, periorbital swelling ENT exam: Present: normal exam, mucous membranes moist Neck exam: Present: normal inspection. Absent: tenderness, meningismus, lymphadenopathy Respiratory exam: Present: normal lung sounds bilaterally. Absent: respiratory distress, wheezes, rales, rhonchi, stridor Cardiovascular Exam: Present: regular rate, normal rhythm, normal heart sounds. Absent: systolic murmur, diastolic murmur, rubs, gallop, clicks GI/Abdominal exam: Present: soft, normal bowel sounds. Absent: distended, tenderness, guarding, rebound, rigid Extremities exam: Present: full ROM, tenderness, normal capillary refill, calf tenderness, other (Increase erythema and warmth to the right lower extremity). Absent: pedal edema, joint swelling Back exam: Present: normal inspection Neurological exam: Present: alert, oriented X3, CN II-XII intact Psychiatric exam: Present: normal affect, normal mood Skin exam: Present: warm, dry, intact, normal color. Absent: rash Course Vital Signs 09/21/16 09/21/16 09/21/16 11:22 12:16 15:00 Temperature 97.9 F 97.1 F L Pulse Rate 73 62 69 Respiratory 18 18 16 Rate Blood Pressure 128/61 184/88 144/78 O2 Sat by Pulse 95 92 L 97 Oximetry Medical Decision Making - Medical Decision Making I did discuss findings with the patient he would like to go home he'll be given some IV clindamycin and sent home on oral medication he does have visiting nurses at home. He is a follow-up and return if needed - Lab Data Result diagrams: 09/21/16 11:56 09/21/16 11:56 Lab Results 09/21/16 09/21/16 09/21/16 Range/Units 11:56 11:56 11:56 WBC 6.8 (3.8-10.6) k/uL RBC 4.16 L (4.30-5.90) m/uL Hgb 13.6 (13.0-17.5) gm/dL Hct 41.0 (39.0-53.0) % MCV 98.5 (80.0-100.0) fL MCH 32.7 (25.0-35.0) pg MCHC 33.2 (31.0-37.0) g/dL RDW 14.1 (11.5-15.5) % Plt Count 220 (150-450) k/uL Neutrophils % 61 % Lymphocytes % 25 % Monocytes % 7 % Eosinophils % 4 % Basophils % 1 % Neutrophils # 4.1 (1.3-7.7) k/uL Lymphocytes # 1.7 (1.0-4.8) k/uL Monocytes # 0.5 (0-1.0) k/uL Eosinophils # 0.3 (0-0.7) k/uL Basophils # 0.1 (0-0.2) k/uL D-Dimer (<0.60) mg/L FEU Sodium 140 (137-145) mmol/L Potassium 3.8 (3.5-5.1) mmol/L Chloride 106 (98-107) mmol/L Carbon Dioxide 25 (22-30) mmol/L Anion Gap 9 mmol/L BUN 21 H (9-20) mg/dL Creatinine 1.02 (0.66-1.25) mg/dL Est GFR (MDRD) Af Amer >60 (>60 ml/min/1.73 sqM) Est GFR (MDRD) Non-Af >60 (>60 ml/min/1.73 sqM) Glucose 99 (74-99) mg/dL Plasma Lactic Acid Len 1.3 (0.7-2.0) mmol/L Calcium 8.5 (8.4-10.2) mg/dL Magnesium 1.9 (1.6-2.3) mg/dL Total Bilirubin 0.9 (0.2-1.3) mg/dL AST 24 (17-59) U/L ALT 27 (21-72) U/L Alkaline Phosphatase 72 (38-126) U/L Total Protein 6.6 (6.3-8.2) g/dL Albumin 3.2 L (3.5-5.0) g/dL 09/21/16 Range/Units 11:56 WBC (3.8-10.6) k/uL RBC (4.30-5.90) m/uL Hgb (13.0-17.5) gm/dL Hct (39.0-53.0) % MCV (80.0-100.0) fL MCH (25.0-35.0) pg MCHC (31.0-37.0) g/dL RDW (11.5-15.5) % Plt Count (150-450) k/uL Neutrophils % % Lymphocytes % % Monocytes % % Eosinophils % % Basophils % % Neutrophils # (1.3-7.7) k/uL Lymphocytes # (1.0-4.8) k/uL Monocytes # (0-1.0) k/uL Eosinophils # (0-0.7) k/uL Basophils # (0-0.2) k/uL D-Dimer 1.41 H (<0.60) mg/L FEU Sodium (137-145) mmol/L Potassium (3.5-5.1) mmol/L Chloride (98-107) mmol/L Carbon Dioxide (22-30) mmol/L Anion Gap mmol/L BUN (9-20) mg/dL Creatinine (0.66-1.25) mg/dL Est GFR (MDRD) Af Amer (>60 ml/min/1.73 sqM) Est GFR (MDRD) Non-Af (>60 ml/min/1.73 sqM) Glucose (74-99) mg/dL Plasma Lactic Acid Len (0.7-2.0) mmol/L Calcium (8.4-10.2) mg/dL Magnesium (1.6-2.3) mg/dL Total Bilirubin (0.2-1.3) mg/dL AST (17-59) U/L ALT (21-72) U/L Alkaline Phosphatase (38-126) U/L Total Protein (6.3-8.2) g/dL Albumin (3.5-5.0) g/dL - EKG Data -: EKG Interpreted by Me EKG shows normal: sinus rhythm (Sinus rhythm rate of 68. Interval 182 QRS duration 78 QT/QTC of 412/438 low-voltage QRS st-t wave changes.) - Radiology Data Radiology results: report reviewed (I did review the imaging and reports no acute findings.), image reviewed Disposition Clinical Impression: Cellulitis of right leg, History of peripheral edema Disposition: HOME SELF-CARE Condition: Good Instructions: Cellulitis (ED), Leg Edema (ED) Prescriptions: Clindamycin [Cleocin] 300 mg PO Q6H #40 capsule
[2016-09-21] MEDS ORDERED: CLINDAMYCIN 600 MG in DEXTROSE 5% IN WATER 50 ML IVPB STA ×2 (14:36)
[2016-09-21 15:09] VITALS: BP 144/78; PULSE 69; RESP 16; TEMP 97.1
== END 2016-09-21 16:11 | disposition home or self-care (01) ==
LOC: EC 11:15
DX: L03.115 Cellulitis of right lower limb (principal); I10 Essential (primary) hypertension; E07.9 Disorder of thyroid, unspecified; Z85.46 Personal history of malignant neoplasm of prostate; Z79.899 Other long term (current) drug therapy; Z88.1 Allergy status to other antibiotic agents; Z88.0 Allergy status to penicillin; Z91.018 Allergy to other foods
CPT/HCPCS: 36415; 80053; 83605; 83735; 85025; 85379; 87040; 93005; 93970; 96365; 99284

== ENCOUNTER 2017-01-10 03:59 | Inpatient (IN) | payer MEDICARE, BC ==
[2017-01-10 05:02] LABS: Basophils # (A) 0.1 k/uL (0-0.2); Basophils % (A) 0 %; CH 32.9; CHCM 34.4; Eosinophils # (A) 0.2 k/uL (0-0.7); Eosinophils % (A) 1 %; HCT 42.5 % (39.0-53.0); HDW 2.42; HGB 14.3 gm/dL (13.0-17.5); Luc # (Auto) 0.07; Luc % (Auto) 0; Lymphocytes % (A) 6 %; MCH 32.4 pg (25.0-35.0); MCHC 33.6 g/dL (31.0-37.0); MCV 96.4 fL (80.0-100.0); Mean Platelet Volume 7.1; Monocytes # (A) 0.6 k/uL (0-1.0); Monocytes % (A) 4 %; Neutrophils # (A) 15.4 k/uL (1.3-7.7); Neutrophils % (A) 89 %; RBC 4.41 m/uL (4.30-5.90); RDW 14.8 % (11.5-15.5); WBC 17.4 k/uL (3.8-10.6); WBC (Perox) 16.89
[2017-01-10 05:10] LABS: INR 1.2 (<1.2); Partial Thromboplastin Time 28.3 sec (22.0-30.0); Prothrombin Time 12.1 sec (9.0-12.0)
[2017-01-10 05:13] LABS: ALT 33 U/L (21-72); AST 28 U/L (17-59); Alkaline Phosphatase 95 U/L (38-126); Anion Gap 11 mmol/L; Blood Urea Nitrogen 20 mg/dL (9-20); Calcium 8.5 mg/dL (8.4-10.2); Carbon Dioxide 24 mmol/L (22-30); Chloride 106 mmol/L (98-107); Glucose 103 mg/dL (74-99); Magnesium 1.9 mg/dL (1.6-2.3); Non-African American GFR(MDRD) >60 (>60 ml/min/1.73 sqM); Potassium 3.6 mmol/L (3.5-5.1); Sodium 141 mmol/L (137-145); Total Bilirubin 1.1 mg/dL (0.2-1.3); Total Protein 7.4 g/dL (6.3-8.2)
[2017-01-10 05:14] LABS: Appearance,Urine Cloudy (Clear); Bacteria,Urine Occasional /hpf; Bilirubin,Urine Negative (Negative); Glucose,Urine (UA) Negative (Negative); Ketones,Urine Negative (Negative); Leukocyte Esterase,Urine Negative (Negative); Mucus,Urine Rare /hpf; Nitrite,Urine Negative (Negative); PH, Urine 7.5 (5.0-8.0); Particle Count 5706; Protein,Urine Negative (Negative); RBC,Urine 1 /hpf (0-5); Specific Gravity,Urine 1.012 (1.001-1.035); Squamous Epithelial Cell,Urine 2 /hpf (0-4); UA Billing (MACRO vs. MICRO) MICRO; Urobilinogen,Urine <2.0 mg/dL (<2.0); WBC,Urine 2 /hpf (0-5)
[2017-01-10 05:28] LABS: Creatine Kinase 121 U/L (55-170)
[2017-01-10 05:41] LABS: Creatine Kinase MB 1.1 ng/mL (0.0-2.4); Troponin I <0.012 ng/mL (0.000-0.034)
--- NOTE | 2017-01-10 05:41 | XR ---
EXAM: XR Chest, 1 View CLINICAL HISTORY: Reason: weakness TECHNIQUE: Single portable frontal view of the chest. COMPARISON: 07/13/16 two-view chest FINDINGS: Lungs: Left diaphragm and retrocardiac region are less well seen, some of which may be on a technical basis, although could include the presence of basilar atelectasis/infiltrate and/or small left pleural effusion. The left upper and midlung field, right lung are free of focal infiltrate. Pleural space: The right pleural spaces clear. No pneumothorax is seen. Heart: Cardiomegaly is likely stable allowing for current portable versus prior nonportable exam. Mediastinum: Mediastinal contours are also probably stable allowing for current portable previous nonportable exam, including aortic ectasia. Bones/joints: Degenerative changes. No acute displaced fracture. IMPRESSION: 1. Diminished visualization of the left base and diaphragm. While some of this may be on a technical basis, the possibility of underlying basilar atelectasis or infiltrate, and/or small left pleural effusion is to be considered. Lateral view could be obtained at time of follow-up. 2. Grossly stable appearance of the cardiomediastinal silhouette allowing for current portable technique, as above.
[2017-01-10] MEDS ORDERED: SODIUM CHLORIDE 0.9% 2,000 ML IV ONE (05:54)
--- NOTE | 2017-01-10 07:13 | ED ---
Lower Extremity Injury HPI - General Chief Complaint: Weakness Stated Complaint: weakness Time Seen by Provider: 01/10/17 04:01 Source: patient, EMS Mode of arrival: EMS Limitations: no limitations - History of Present Illness Initial Comments: This patient is an 86-year-old man who comes to be evaluated for by lateral leg swelling and pain. He has history of lymphedema. He states that over the past few days he has had increased swelling, now redness of the eye lateral lower legs. The patient has also had some generalized weakness and fatigue. He was uncertain if he had a fever. He denies chest pain, dyspnea, nausea vomiting MD Complaint: leg injury -: days(s) Injury: Leg: Left, Right - Related Data Home Medications Medication Instructions Recorded Confirmed Lisinopril [Zestril] 2.5 mg PO DAILY 06/10/15 09/21/16 Furosemide [Lasix] 80 mg PO QAM 07/12/16 09/21/16 Levothyroxine Sodium [Synthroid] 150 mcg PO DAILY 07/12/16 09/21/16 Potassium Chloride [Klor-Con 20] 20 meq PO BID 07/12/16 09/21/16 Furosemide [Lasix] 40 mg PO AC-SUPPER 09/21/16 09/21/16 Sulfamethox-Tmp 800-160Mg [Bactrim 1 tab PO Q12HR 09/21/16 09/21/16 DS 800-160 mg] Previous Rx's Medication Instructions Recorded Clindamycin [Cleocin] 300 mg PO Q6H #40 capsule 09/21/16 Allergies Allergy/AdvReac Type Severity Reaction Status Date / Time azithromycin [From Zithromax] Allergy Unknown Verified 01/10/17 04:11 Penicillins Allergy Rash/Hives Verified 01/10/17 04:11 strawberry Allergy Rash/Hives Verified 01/10/17 04:11 vancomycin Allergy Rash/Hives Verified 01/10/17 04:11 Review of Systems ROS Statement: Those systems with pertinent positive or pertinent negative responses have been documented in the HPI. ROS Other: All systems not noted in ROS Statement are negative. Constitutional: Reports: weakness. Denies: fever, chills Respiratory: Denies: cough, dyspnea, wheezes Cardiovascular: Reports: edema. Denies: chest pain, palpitations, syncope Gastrointestinal: Denies: abdominal pain, nausea, vomiting Genitourinary: Denies: dysuria, hematuria Musculoskeletal: Denies: back pain Skin: Reports: change in color. Denies: rash Neurological: Denies: headache, weakness, numbness Past Medical History Past Medical History: Cancer, Hypertension, Memory Impairment, Prostate Disorder , Thyroid Disorder Additional Past Medical History / Comment(s): PER PAST MEDICAL HX 2013:PROSTATE CANCER 2010(SX DONE), INCONT OF URINE WEARS A BRIEF, LYMPH EDEMA JUDY LEGS(LEGS WRAPPED), PVD, LT CATARACT-(PT DID'NT REMEBER THIS" History of Any Multi-Drug Resistant Organisms: None Reported Past Surgical History: Hernia Repair, Prostate Surgery Additional Past Surgical History / Comment(s): RT CATARACT(PT DID'NT REMEMEBR THIS) Past Anesthesia/Blood Transfusion Reactions: Motion Sickness Past Psychological History: No Psychological Hx Reported Smoking Status: Never smoker Past Alcohol Use History: None Reported Past Drug Use History: None Reported - Past Family History Father Family Medical History: Unable to Obtain Mother Family Medical History: Unable to Obtain General Exam Limitations: no limitations General appearance: alert, in no apparent distress Head exam: Present: atraumatic, normocephalic Eye exam: Present: normal appearance. Absent: scleral icterus, conjunctival injection Neck exam: Present: normal inspection Respiratory exam: Present: normal lung sounds bilaterally. Absent: respiratory distress, wheezes, rales, rhonchi, stridor Cardiovascular Exam: Present: regular rate, normal rhythm, normal heart sounds. Absent: systolic murmur, diastolic murmur, rubs, gallop GI/Abdominal exam: Present: soft. Absent: distended, tenderness, guarding, rebound Extremities exam: Present: other (Patient has chronic stasis changes bilaterally. There is marked edema below the knees bilaterally. There is warmth and erythema consistent with cellulitis. The patient does have a small decubitus ulcer to the posterior the left leg which is weeping.) Back exam: Absent: CVA tenderness (R), CVA tenderness (L) Neurological exam: Present: alert Skin exam: Present: warm, dry, erythema. Absent: normal color, rash Course Vital Signs 01/10/17 01/10/17 01/10/17 04:04 05:07 05:24 Temperature 99.8 F H Pulse Rate 75 83 Respiratory 22 15 18 Rate Blood Pressure 142/85 133/78 O2 Sat by Pulse 94 L 93 L Oximetry 01/10/17 01/10/17 06:18 06:40 Temperature 99.4 F Pulse Rate 75 108 H Respiratory 16 17 Rate Blood Pressure 139/60 131/73 O2 Sat by Pulse 96 95 Oximetry Medical Decision Making - Medical Decision Making Patient is an 86-year-old man in with bilateral circumferential cellulitis of the lower portion of the legs. He does list a number of ALLERGIES to antibiotics. The patient is admitted to the [facility] and will have infectious disease consult. - Lab Data Result diagrams: 01/10/17 04:44 01/10/17 04:44 Lab Results 01/10/17 01/10/17 01/10/17 Range/Units 04:44 04:44 04:44 WBC 17.4 H (3.8-10.6) k/uL RBC 4.41 (4.30-5.90) m/uL Hgb 14.3 (13.0-17.5) gm/dL Hct 42.5 (39.0-53.0) % MCV 96.4 (80.0-100.0) fL MCH 32.4 (25.0-35.0) pg MCHC 33.6 (31.0-37.0) g/dL RDW 14.8 (11.5-15.5) % Plt Count 227 (150-450) k/uL Neutrophils % 89 % Lymphocytes % 6 % Monocytes % 4 % Eosinophils % 1 % Basophils % 0 % Neutrophils # 15.4 H (1.3-7.7) k/uL Lymphocytes # 1.0 (1.0-4.8) k/uL Monocytes # 0.6 (0-1.0) k/uL Eosinophils # 0.2 (0-0.7) k/uL Basophils # 0.1 (0-0.2) k/uL PT (9.0-12.0) sec INR (<1.2) APTT (22.0-30.0) sec Sodium 141 (137-145) mmol/L Potassium 3.6 (3.5-5.1) mmol/L Chloride 106 (98-107) mmol/L Carbon Dioxide 24 (22-30) mmol/L Anion Gap 11 mmol/L BUN 20 (9-20) mg/dL Creatinine 1.00 (0.66-1.25) mg/dL Est GFR (MDRD) Af Amer >60 (>60 ml/min/1.73 sqM) Est GFR (MDRD) Non-Af >60 (>60 ml/min/1.73 sqM) Glucose 103 H (74-99) mg/dL Plasma Lactic Acid Len (0.7-2.0) mmol/L Calcium 8.5 (8.4-10.2) mg/dL Magnesium 1.9 (1.6-2.3) mg/dL Total Bilirubin 1.1 (0.2-1.3) mg/dL AST 28 (17-59) U/L ALT 33 (21-72) U/L Alkaline Phosphatase 95 (38-126) U/L Total Creatine Kinase 121 (55-170) U/L CK-MB (CK-2) 1.1 (0.0-2.4) ng/mL CK-MB (CK-2) Rel Index 0.9 Troponin I <0.012 (0.000-0.034) ng/mL NT-Pro-B Natriuret Pep pg/mL Total Protein 7.4 (6.3-8.2) g/dL Albumin 3.8 (3.5-5.0) g/dL Urine Color Urine Appearance (Clear) Urine pH (5.0-8.0) Ur Specific [place] (1.001-1.035) Urine Protein (Negative) Urine Glucose (UA) (Negative) Urine Ketones (Negative) Urine Blood (Negative) Urine Nitrite (Negative) Urine Bilirubin (Negative) Urine Urobilinogen (<2.0) mg/dL Ur Leukocyte Esterase (Negative) Urine RBC (0-5) /hpf Urine WBC (0-5) /hpf Ur Squamous Epith Cells (0-4) /hpf Urine Bacteria (None) /hpf Urine Mucus (None) /hpf 01/10/17 01/10/17 01/10/17 Range/Units 04:44 04:44 04:44 WBC (3.8-10.6) k/uL RBC (4.30-5.90) m/uL Hgb (13.0-17.5) gm/dL Hct (39.0-53.0) % MCV (80.0-100.0) fL MCH (25.0-35.0) pg MCHC (31.0-37.0) g/dL RDW (11.5-15.5) % Plt Count (150-450) k/uL Neutrophils % % Lymphocytes % % Monocytes % % Eosinophils % % Basophils % % Neutrophils # (1.3-7.7) k/uL Lymphocytes # (1.0-4.8) k/uL Monocytes # (0-1.0) k/uL Eosinophils # (0-0.7) k/uL Basophils # (0-0.2) k/uL PT 12.1 H (9.0-12.0) sec INR 1.2 H (<1.2) APTT 28.3 (22.0-30.0) sec Sodium (137-145) mmol/L Potassium (3.5-5.1) mmol/L Chloride (98-107) mmol/L Carbon Dioxide (22-30) mmol/L Anion Gap mmol/L BUN (9-20) mg/dL Creatinine (0.66-1.25) mg/dL Est GFR (MDRD) Af Amer (>60 ml/min/1.73 sqM) Est GFR (MDRD) Non-Af (>60 ml/min/1.73 sqM) Glucose (74-99) mg/dL Plasma Lactic Acid Len 2.1 H* (0.7-2.0) mmol/L Calcium (8.4-10.2) mg/dL Magnesium (1.6-2.3) mg/dL Total Bilirubin (0.2-1.3) mg/dL AST (17-59) U/L ALT (21-72) U/L Alkaline Phosphatase (38-126) U/L Total Creatine Kinase (55-170) U/L CK-MB (CK-2) (0.0-2.4) ng/mL CK-MB (CK-2) Rel Index Troponin I (0.000-0.034) ng/mL NT-Pro-B Natriuret Pep 192 pg/mL Total Protein (6.3-8.2) g/dL Albumin (3.5-5.0) g/dL Urine Color Urine Appearance (Clear) Urine pH (5.0-8.0) Ur Specific [place] (1.001-1.035) Urine Protein (Negative) Urine Glucose (UA) (Negative) Urine Ketones (Negative) Urine Blood (Negative) Urine Nitrite (Negative) Urine Bilirubin (Negative) Urine Urobilinogen (<2.0) mg/dL Ur Leukocyte Esterase (Negative) Urine RBC (0-5) /hpf Urine WBC (0-5) /hpf Ur Squamous Epith Cells (0-4) /hpf Urine Bacteria (None) /hpf Urine Mucus (None) /hpf 01/10/17 Range/Units 04:44 WBC (3.8-10.6) k/uL RBC (4.30-5.90) m/uL Hgb (13.0-17.5) gm/dL Hct (39.0-53.0) % MCV (80.0-100.0) fL MCH (25.0-35.0) pg MCHC (31.0-37.0) g/dL RDW (11.5-15.5) % Plt Count (150-450) k/uL Neutrophils % % Lymphocytes % % Monocytes % % Eosinophils % % Basophils % % Neutrophils # (1.3-7.7) k/uL Lymphocytes # (1.0-4.8) k/uL Monocytes # (0-1.0) k/uL Eosinophils # (0-0.7) k/uL Basophils # (0-0.2) k/uL PT (9.0-12.0) sec INR (<1.2) APTT (22.0-30.0) sec Sodium (137-145) mmol/L Potassium (3.5-5.1) mmol/L Chloride (98-107) mmol/L Carbon Dioxide (22-30) mmol/L Anion Gap mmol/L BUN (9-20) mg/dL Creatinine (0.66-1.25) mg/dL Est GFR (MDRD) Af Amer (>60 ml/min/1.73 sqM) Est GFR (MDRD) Non-Af (>60 ml/min/1.73 sqM) Glucose (74-99) mg/dL Plasma Lactic Acid Len (0.7-2.0) mmol/L Calcium (8.4-10.2) mg/dL Magnesium (1.6-2.3) mg/dL Total Bilirubin (0.2-1.3) mg/dL AST (17-59) U/L ALT (21-72) U/L Alkaline Phosphatase (38-126) U/L Total Creatine Kinase (55-170) U/L CK-MB (CK-2) (0.0-2.4) ng/mL CK-MB (CK-2) Rel Index Troponin I (0.000-0.034) ng/mL NT-Pro-B Natriuret Pep pg/mL Total Protein (6.3-8.2) g/dL Albumin (3.5-5.0) g/dL Urine Color Yellow Urine Appearance Cloudy (Clear) Urine pH 7.5 (5.0-8.0) Ur Specific [place] 1.012 (1.001-1.035) Urine Protein Negative (Negative) Urine Glucose (UA) Negative (Negative) Urine Ketones Negative (Negative) Urine Blood Negative (Negative) Urine Nitrite Negative (Negative) Urine Bilirubin Negative (Negative) Urine Urobilinogen <2.0 (<2.0) mg/dL Ur Leukocyte Esterase Negative (Negative) Urine RBC 1 (0-5) /hpf Urine WBC 2 (0-5) /hpf Ur Squamous Epith Cells 2 (0-4) /hpf Urine Bacteria Occasional H (None) /hpf Urine Mucus Rare H (None) /hpf - EKG Data EKG shows normal: sinus rhythm, axis (Normal), intervals (CO interval is 242 ms , consistent with first-degree AV block. QRS duration 74 ms. QTC 437 ms.), QRS complexes (Normal) Rate: normal (Rate 85 bpm) Interpretation: nonspecific ST-T wave changes Disposition Clinical Impression: Bilateral lower leg cellulitis, Sepsis Disposition: ADMITTED IP TO THIS HOSP Condition: Poor
[2017-01-10] MEDS ORDERED: HEPARIN SODIUM,PORCINE 5,000 UNIT/ML 1 ML VIAL SQ SCH (09:00)
[2017-01-10] MEDS ORDERED: SILVER sulfADIAZINE Cream 400 GM 1 APPLIC APPLIC TOPICAL SCH (09:00)
--- NOTE | 2017-01-10 09:03 | P.CONS ---
History of Present Illness - Reason for Consult Consult date: 01/10/17 Bilateral lower extremity cellulitis, lymphedema - History of Present Illness This is an 86-year-old male with history of chronic lower extremity lymphedema and episodes of cellulitis. He was most recently hospitalized in July of this year. Patient states that he eventually had improvement of the redness from his last admission. Approximate 3 days ago he started having increased edema and redness along with generalized weakness and fatigue. Patient came into [facility] emergency center for evaluation. His chest x-ray showed possible basilar atelectasis or infiltrate with diminished visualization of the left base. Temperature was 99.8 with white count of 17.4. Urinalysis was cloudy with nitrate and leukoesterase negative. Blood culture and urine culture are status received. Patient was given 1 dose of ceftriaxone and admitted to the [facility] floor. Patient also states that he had fever and chills as well as nausea and dry heaves. He denies any diarrhea. He denies any pain to his lower extremities. No dysuria. He does complain of cough with sputum production. Patient is noted to have some mild confusion which is worsened by his impaired hearing. Review of Systems All systems: negative Constitutional: Reports chills, Reports fatigue, Reports fever, Reports weakness Eyes: denies blurred vision, denies pain Ears, nose, mouth and throat: Denies headache, Denies sore throat Cardiovascular: Denies chest pain, Denies shortness of breath Respiratory: Reports cough with sputum, Denies cough, Denies dyspnea, Denies excessive sputum, Denies home oxygen Gastrointestinal: Denies abdominal pain, Denies diarrhea, Denies nausea, Denies vomiting Musculoskeletal: Denies myalgias Integumentary: Reports color changes, Reports darkening of skin, Reports wounds , Denies pruritus, Denies rash Neurological: Denies numbness, Denies weakness Psychiatric: Denies anxiety, Denies depression Endocrine: Denies fatigue, Denies weight change Past Medical History Past Medical History: Cancer, Hypertension, Memory Impairment, Prostate Disorder , Thyroid Disorder Additional Past Medical History / Comment(s): PER PAST MEDICAL HX 2013:PROSTATE CANCER 2010(SX DONE), INCONT OF URINE WEARS A BRIEF, LYMPH EDEMA JUDY LEGS(LEGS WRAPPED), PVD, LT CATARACT-(PT DID'NT REMEBER THIS" History of Any Multi-Drug Resistant Organisms: None Reported Past Surgical History: Hernia Repair, Prostate Surgery Additional Past Surgical History / Comment(s): RT CATARACT(PT DID'NT REMEMEBR THIS) Past Anesthesia/Blood Transfusion Reactions: Motion Sickness Past Psychological History: No Psychological Hx Reported Smoking Status: Never smoker Past Alcohol Use History: None Reported Past Drug Use History: None Reported - Past Family History Father Family Medical History: Unable to Obtain Mother Family Medical History: Unable to Obtain Medications and Allergies Home Medications Medication Instructions Recorded Confirmed Type Lisinopril [Zestril] 2.5 mg PO DAILY 06/10/15 01/10/17 History Furosemide [Lasix] 80 mg PO QAM 07/12/16 01/10/17 History Levothyroxine Sodium [Synthroid] 150 mcg PO DAILY 07/12/16 01/10/17 History Potassium Chloride [Klor-Con 20] 20 meq PO BID 07/12/16 01/10/17 History Furosemide [Lasix] 40 mg PO AC-SUPPER 09/21/16 01/10/17 History Allergies Allergy/AdvReac Type Severity Reaction Status Date / Time azithromycin [From Zithromax] Allergy Unknown Verified 01/10/17 08:17 Penicillins Allergy Rash/Hives Verified 01/10/17 08:17 strawberry Allergy Rash/Hives Verified 01/10/17 08:17 vancomycin Allergy Rash/Hives Verified 01/10/17 08:17 Physical Exam Vitals: Vital Signs Temp Pulse Resp BP Pulse Ox 01/10/17 07:59 99.0 F 86 17 145/75 01/10/17 06:40 99.4 F 108 H 17 131/73 95 01/10/17 06:18 75 16 139/60 96 01/10/17 05:24 18 01/10/17 05:07 83 15 133/78 93 L 01/10/17 04:04 99.8 F H 75 22 142/85 94 L Intake and Output 01/09/17 01/10/17 01/10/17 22:59 06:59 14:59 Intake Total 1800 Balance 1800 Intake: Amount of Fluid Infused ( 1800 ml) Other: Weight 113.398 kg Gen: This is an 86-year-old male. He has sitting up in bed and appears to be in no acute distress. Patient is noted to be very hard of hearing. HEENT: Head is atraumatic, normocephalic. Pupils equal, round. Sclerae is anicteric. Conjunctiva pale. Mucous membranes of the mouth are moist. Patient is mostly edentulous remaining teeth are in poor order. NECK: Supple. No JVD. No lymphadenopathy. No thyromegaly. LUNGS: A few scattered rhonchi and expiratory wheeze. No intercostal retractions. HEART: Regular rate and rhythm. No murmur. ABDOMEN: Soft. Bowel sounds are present. No masses. No tenderness. EXTREMITIES: Chronic lymphedema changes noted to bilateral lower extremities with surrounding erythema and edema. Lower extremities are warm to the touch. No noted areas of weeping. NEUROLOGICAL: Patient is awake, alert and oriented x2 with noted mild confusion. Generalized weakness. Results Results: Laboratory Results WBC 17.4 k/uL (3.8-10.6) H 01/10/17 04:44 RBC 4.41 m/uL (4.30-5.90) 01/10/17 04:44 Hgb 14.3 gm/dL (13.0-17.5) 01/10/17 04:44 Hct 42.5 % (39.0-53.0) 01/10/17 04:44 MCV 96.4 fL (80.0-100.0) 01/10/17 04:44 MCH 32.4 pg (25.0-35.0) 01/10/17 04:44 MCHC 33.6 g/dL (31.0-37.0) 01/10/17 04:44 RDW 14.8 % (11.5-15.5) 01/10/17 04:44 Plt Count 227 k/uL (150-450) 01/10/17 04:44 Neutrophils % 89 % 01/10/17 04:44 Lymphocytes % 6 % 01/10/17 04:44 Monocytes % 4 % 01/10/17 04:44 Eosinophils % 1 % 01/10/17 04:44 Basophils % 0 % 01/10/17 04:44 Neutrophils # 15.4 k/uL (1.3-7.7) H 01/10/17 04:44 Lymphocytes # 1.0 k/uL (1.0-4.8) 01/10/17 04:44 Monocytes # 0.6 k/uL (0-1.0) 01/10/17 04:44 Eosinophils # 0.2 k/uL (0-0.7) 01/10/17 04:44 Basophils # 0.1 k/uL (0-0.2) 01/10/17 04:44 PT 12.1 sec (9.0-12.0) H 01/10/17 04:44 INR 1.2 (<1.2) H 01/10/17 04:44 APTT 28.3 sec (22.0-30.0) 01/10/17 04:44 Sodium 141 mmol/L (137-145) 01/10/17 04:44 Potassium 3.6 mmol/L (3.5-5.1) 01/10/17 04:44 Chloride 106 mmol/L (98-107) 01/10/17 04:44 Carbon Dioxide 24 mmol/L (22-30) 01/10/17 04:44 Anion Gap 11 mmol/L 01/10/17 04:44 BUN 20 mg/dL (9-20) 01/10/17 04:44 Creatinine 1.00 mg/dL (0.66-1.25) 01/10/17 04:44 Est GFR (MDRD) Af Amer >60 (>60 ml/min/1.73 sqM) 01/10/17 04:44 Est GFR (MDRD) Non-Af >60 (>60 ml/min/1.73 sqM) 01/10/17 04:44 Glucose 103 mg/dL (74-99) H 01/10/17 04:44 Lactic Ac Sepsis Rflx Y 01/10/17 05:14 Plasma Lactic Acid Len 2.1 mmol/L (0.7-2.0) H* 01/10/17 04:44 Calcium 8.5 mg/dL (8.4-10.2) 01/10/17 04:44 Magnesium 1.9 mg/dL (1.6-2.3) 01/10/17 04:44 Total Bilirubin 1.1 mg/dL (0.2-1.3) 01/10/17 04:44 AST 28 U/L (17-59) 01/10/17 04:44 ALT 33 U/L (21-72) 01/10/17 04:44 Alkaline Phosphatase 95 U/L (38-126) 01/10/17 04:44 Total Creatine Kinase 121 U/L (55-170) 01/10/17 04:44 CK-MB (CK-2) 1.1 ng/mL (0.0-2.4) 01/10/17 04:44 CK-MB (CK-2) Rel Index 0.9 01/10/17 04:44 Troponin I <0.012 ng/mL (0.000-0.034) 01/10/17 04:44 NT-Pro-B Natriuret Pep 192 pg/mL 01/10/17 04:44 Total Protein 7.4 g/dL (6.3-8.2) 01/10/17 04:44 Albumin 3.8 g/dL (3.5-5.0) 01/10/17 04:44 Urine Color Yellow 01/10/17 04:44 Urine Appearance Cloudy (Clear) 01/10/17 04:44 Urine pH 7.5 (5.0-8.0) 01/10/17 04:44 Ur Specific [place] 1.012 (1.001-1.035) 01/10/17 04:44 Urine Protein Negative (Negative) 01/10/17 04:44 Urine Glucose (UA) Negative (Negative) 01/10/17 04:44 Urine Ketones Negative (Negative) 01/10/17 04:44 Urine Blood Negative (Negative) 01/10/17 04:44 Urine Nitrite Negative (Negative) 01/10/17 04:44 Urine Bilirubin Negative (Negative) 01/10/17 04:44 Urine Urobilinogen <2.0 mg/dL (<2.0) 01/10/17 04:44 Ur Leukocyte Esterase Negative (Negative) 01/10/17 04:44 Urine RBC 1 /hpf (0-5) 01/10/17 04:44 Urine WBC 2 /hpf (0-5) 01/10/17 04:44 Ur Squamous Epith Cells 2 /hpf (0-4) 01/10/17 04:44 Urine Bacteria Occasional /hpf (None) H 01/10/17 04:44 Urine Mucus Rare /hpf (None) H 01/10/17 04:44 CBC & Chem 7: 01/10/17 04:44 01/10/17 04:44 Labs: Abnormal Lab Results - Last 24 Hours (Table) 01/10/17 01/10/17 01/10/17 Range/Units 04:44 04:44 04:44 WBC 17.4 H (3.8-10.6) k/uL Neutrophils # 15.4 H (1.3-7.7) k/uL PT (9.0-12.0) sec INR (<1.2) Glucose 103 H (74-99) mg/dL Plasma Lactic Acid Len 2.1 H* (0.7-2.0) mmol/L Urine Bacteria (None) /hpf Urine Mucus (None) /hpf 01/10/17 01/10/17 Range/Units 04:44 04:44 WBC (3.8-10.6) k/uL Neutrophils # (1.3-7.7) k/uL PT 12.1 H (9.0-12.0) sec INR 1.2 H (<1.2) Glucose (74-99) mg/dL Plasma Lactic Acid Len (0.7-2.0) mmol/L Urine Bacteria Occasional H (None) /hpf Urine Mucus Rare H (None) /hpf Assessment and Plan Plan: This is an 86-year-old male who presented to the hospital with chronic lymphedema with cellulitis to the bilateral lower extremities and signs of sepsis. Patient was given 1 dose of ceftriaxone and [facility]. Patient will be continued on ceftriaxone and local wound care will be in the form of Silvadene wraps and elevation of the lower extremities. DuoNeb treatments added as needed. Would recommend repeat chest x-ray. Continue supportive care. Further recommendations as patient progresses. The above dictated assessment and findings were discussed with Dr. Issa. The impression and plan of care have been directed as dictated. Amy Lancaster nurse practitioner acting as scribe for Dr. Issa.
[2017-01-10] MEDS ORDERED: cefTRIAXone 2,000 MG in SODIUM CHLORIDE 0.9% 100 ML IVPB SCH (09:30)
[2017-01-10] MEDS: ENOXAPARIN 40 MG/0.4 ML SYRINGE SQ SCH (10:10)
[2017-01-10] MEDS: LEVOTHYROXINE 75 MCG TAB PO SCH (10:11)
[2017-01-10] MEDS: POTASSIUM CHLORIDE ER 20 MEQ TAB.ER PO SCH ×2 (10:11→20:00)
[2017-01-10] MEDS: LISINOPRIL 2.5 MG TAB PO SCH (10:11)
[2017-01-10] MEDS: FUROSEMIDE 40 MG TAB PO SCH ×2 (10:11→16:42)
[2017-01-10 14:19] VITALS: BMI 33.0
[2017-01-10] MEDS: traMADol 50 MG TAB PO PRN (15:52)
[2017-01-10] MEDS: ceFAZolin 2 GM in SODIUM CHLORIDE 0.9% 100 ML IVPB SCH (15:54)
--- NOTE | 2017-01-11 01:28 | US ---
EXAM: US Duplex Bilateral Lower Extremity Veins CLINICAL HISTORY: Reason: edema/dvt? TECHNIQUE: Real-time ultrasound scan of the veins of the bilateral lower extremities with color Doppler flow, spectral waveform analysis and compression. COMPARISON: No relevant prior studies available. FINDINGS: Right deep veins: Unremarkable. No DVT in the right common femoral, femoral, proximal deep femoral or popliteal veins. The veins are compressible with normal color flow and augmentation. Right superficial veins: Unremarkable. No thrombus in the visualized right great saphenous vein. Left deep veins: Unremarkable. No DVT in the left common femoral, femoral, proximal deep femoral or popliteal veins. The veins are compressible with normal color flow and augmentation. Left superficial veins: Unremarkable. No thrombus in the visualized left great saphenous vein. IMPRESSION: No evidence of deep venous thrombosis.
[2017-01-11] MEDS ORDERED: cefTRIAXone 2,000 MG in SODIUM CHLORIDE 0.9% 100 ML IVPB SCH (05:00)
[2017-01-11] MEDS: LEVOTHYROXINE 75 MCG TAB PO SCH (06:25)
[2017-01-11 08:52] LABS: Basophils % (A) 0 %; CHCM 33.3; Eosinophils # (A) 0.2 k/uL (0-0.7); Eosinophils % (A) 2 %; HCT 38.9 % (39.0-53.0); HDW 2.44; HGB 12.9 gm/dL (13.0-17.5); Luc # (Auto) 0.19; Luc % (Auto) 2; Lymphocytes # (A) 1.7 k/uL (1.0-4.8); Lymphocytes % (A) 20 %; MCHC 33.1 g/dL (31.0-37.0); MCV 96.5 fL (80.0-100.0); Mean Platelet Volume 6.6; Monocytes # (A) 0.5 k/uL (0-1.0); Monocytes % (A) 6 %; Neutrophils % (A) 70 %; RBC 4.03 m/uL (4.30-5.90); WBC 8.5 k/uL (3.8-10.6); WBC (Perox) 9.04
[2017-01-11 09:26] LABS: ALT 26 U/L (21-72); AST 25 U/L (17-59); Alkaline Phosphatase 55 U/L (38-126); Anion Gap 6 mmol/L; Blood Urea Nitrogen 20 mg/dL (9-20); Calcium 7.5 mg/dL (8.4-10.2); Carbon Dioxide 28 mmol/L (22-30); Chloride 106 mmol/L (98-107); Glucose 97 mg/dL (74-99); Non-African American GFR(MDRD) >60 (>60 ml/min/1.73 sqM); Potassium 3.6 mmol/L (3.5-5.1); Sodium 140 mmol/L (137-145); Total Protein 6.1 g/dL (6.3-8.2)
[2017-01-11] MEDS: POTASSIUM CHLORIDE ER 20 MEQ TAB.ER PO SCH ×2 (09:28→20:21)
[2017-01-11] MEDS: LISINOPRIL 2.5 MG TAB PO SCH (09:28)
[2017-01-11] MEDS: ENOXAPARIN 40 MG/0.4 ML SYRINGE SQ SCH (09:28)
[2017-01-11] MEDS: ceFAZolin 2 GM in SODIUM CHLORIDE 0.9% 100 ML IVPB SCH ×5 (09:28→23:02)
[2017-01-11] MEDS: FUROSEMIDE 40 MG TAB PO SCH ×2 (09:28→16:34)
--- NOTE | 2017-01-11 10:29 | CONS ---
DATE OF CONSULTATION: 01/10/2017 REASON FOR CONSULTATION: Bilateral lower extremity cellulitis. HISTORY OF PRESENT ILLNESS: The patient is an 86-year old male with past medical history significant for bilateral lower extremity lymphedema and chronic swelling. The patient presented to the ER at [facility] on 07/28 with chief complaint of increased swelling as well as redness to the lower leg that has been going on for the last few days. The patient has history of trauma. The legs are swollen and red. Slight, dull aching pain, 4 out of 10 and no radiation. No significant skin breakdown or any drainage. The patient did have some chills but denies any high grade fever. Subsequently the patient was evaluated by the ER physician and has been diagnosed with cellulitis. He was started on Rocephin along with ( ) cream to the legs. I was asked to see the patient for further recommendations regarding antibiotic therapy. REVIEW OF SYSTEMS: Constitutional: Positive for weakness and low grade fever. Eyes: No complaint. ENT: No complaint. Respiratory: No complaint. Cardiovascular: No complaint. Genitourinary: No complaint. Gastrointestinal : No complaint. Musculoskeletal: As per HPI. Integumentary: As per HPI. Psychological: No complaint. Endocrine: No complaint. Neurological: No complaint. Past medical history includes: Hypothyroidism, prostate cancer, memory impairment, hypertension, chronic lymphedema to the legs. Past surgical history: Hernia repair and prostatectomy. SOCIAL HISTORY: No history of smoking, drinking or drug use. FAMILY HISTORY: No pertinent findings were obtained. ALLERGIES: AZITHROMYCIN, PENICILLIN, VANCOMYCIN ( ). Medications currently include the patient is on: 1. Rocephin 2 gm daily. 2. Lovenox. 3. Lasix. 4. Synthroid. 5. Zestril. 6. K-Dur. 7. Ultram. On examination, blood pressure is 122/68 with a pulse of 68. Temperature 99.9. He is 95% on room air. General description is an elderly male lying in bed in no distress. No tachypnea or accessory muscles of respiration use. HEENT: Examination shows no pallor or sclera icterus. Oral mucosa membranes dry. NECK: Trachea is central. No thyromegaly. LUNGS: Unlabored breathing. Clear to auscultation anteriorly. No wheeze or crackles. HEART: S1, S2 regular rate and rhythm. ABDOMEN: Soft, no tenderness. No rigidity. EXTREMITIES: Bilateral significant swelling, minimal redness. Slightly warm to touch. No significant skin breakdown or drainage. NEUROLOGICALLY: The patient is awake, alert and oriented times three. Mood and affect normal. LABS: Hemoglobin 14, white count 17.4, BUN 20, creatinine 1. Electrolytes have been normal. Liver enzymes have been normal. Urine is negative. DIAGNOSTIC IMPRESSION AND PLAN: 1. Patient with bilateral extremity cellulitis in a patient who did have diffuse swelling and redness, likely a streptococcal disease. 2. The patient did have a low grade fever on presentation, also elevated white count and lactic acid. 3. The patient does have MULTIPLE ANTIBIOTIC ALLERGIES that does limit the number of antibiotics that can be safely used. PLAN: 1. Discontinue Rocephin. 2. Discontinue Silvadene cream. 3. We will start the patient on Cefazolin 2 mg q8 hours. 4. Jose wrap from above the toe to below the knee. 5. We will follow-up on the clinical condition and cultures to further adjust medication if needed. Thank you for this consultation. We will follow this patient along with you. PEPE
--- NOTE | 2017-01-11 11:52 | HP ---
CHIEF COMPLAINT: 86 -year-old white male evaluated for lateral lower leg swelling and pain and lymphedema type changes, increased swelling and redness of the lateral lower legs. Severe swelling he states came up quickly in his lower legs over the last day or two which liked doubled the size of his legs. He denies any chest pain, questionable fever. No rigors. No nausea or vomiting. History of lymphedema. Consultations were placed with infectious disease and Dr. Juvenal Tse for lymphedema. Home medications: 1. Zestril 2.5 mg daily. 2. ( ) daily. 3. ( ) 150 mcg daily. 4. Klor-Con 20 meq b.i.d. 5. Lasix 40 mg daily. 6. Bactrim double strength b.i.d. ALLERGIES: AZITHROMYCIN, PENICILLIN, STRAWBERRY, VANCOMYCIN. REVIEW OF SYSTEMS: Psych: Negative. Neurological: negative. Vacular: Negative. Hematological: Negative. Immune: Negative. Integument: As mentioned earlier. Lymphadenopathy: As mentioned earlier. Vascular as mentioned earlier. Cardiovascular: Negative. Pulmonary : Negative. GI: Negative. Past medical history of cancer, hypertension, memory impairment, prostate disorder, thyroid disorder, prostate cancer in 2010. Incontinence. Wears a brief. Lymphedema bilateral legs. ( ). Cataract surgeries. Surgical history of hernia repair. Prostate surgery. Social history: No alcohol. No smoking. Family history: Father negative. Mother negative. PHYSICAL EXAMINATION: Vital signs stable. Afebrile. Cardiovascular: S1, S2. Lungs transmitted upper airway sounds. Hematological ( ). Gross lymphedema type changes. Marked edema below the knees. Marked redness, cellulitis, ( ) ulcer posterior left leg weeping. Back no cva tenderness. Neurological: Alert and oriented times three. Skin as mentioned earlier. Lungs clear. Cardiovascular: S1, S2. Psych: Fair mood and affect. Temp 99.8. Pulse 75 to 83. Respiratory rate 18 to 22. Blood pressure 130s to 140s over 70s to 80s. O2 93 to 94%. Blood pressure 130s/60-70s. O2 95-96% on room air. White count 7.4. Hemoglobin 14.3. Sodium 141, potassium 3.6. ASSESSMENT: 1. Acute lymphedema type changes with significant swelling and redness and cellulitis of the entire lower legs from the knees down to the toes. Started on IV Kefzol. Ultrasound of the legs has been ordered. Dr. Juvenal Tse vascular consult done as well as infectious disease. 2. Leukocytosis secondary to cellulitis of the legs. 3. Elevated lactic acid due to sepsis secondary to cellulitis of the legs. 4. Hypothyroidism. 5. Hypertension. 6. Lymphedema. 7. First degree heart block. Continue current treatment with IV Kefzol. Cultures were done. Jose wraps were done. Please see further orders. Home medicines were ordered. MTDD
--- NOTE | 2017-01-11 15:52 | P.PN ---
Subjective 86-year-old male who was transferred from the [facility] after patient was noted to have increased swelling to the bilateral lower extremities patient stated that he was having great difficulty time even elevating. Lifting his legs up off the mattress because the swelling had doubled in size involving the bilateral lower extremities. Patient has a history of chronic lymphedema involving the lower extremities. Patient denied any nausea vomiting no were no fever chills. Objective - Vital Signs Vital signs: Vital Signs Temp 98.8 F 01/11/17 15:00 Pulse 65 01/11/17 15:00 Resp 18 01/11/17 15:00 BP 106/64 01/11/17 15:00 Pulse Ox 95 01/11/17 15:00 Intake & Output 01/10/17 01/11/17 01/11/17 18:59 06:59 18:59 Intake Total 1800 Balance 1800 Weight 113.398 kg 132 kg Intake: Amount of Fluid Infused ( 1800 ml) Other: Voiding Method Urinal Urinal Urinal Incontinent Diaper Diaper Incontinent Incontinent # Voids 1 4 5 # Bowel Movements 1 - Exam Physical exam 86-year-old male taking a diet resting in bed pleasant cooperative oriented 3 Lungs diminished at the bases otherwise adequate air movement Heart S1-S2 audible regular Abdomen obese soft nontender Extremities upper extremities unremarkable the lower extremities significant lymphedema to the bilateral lower extremities significant redness noted cellulitis - Labs CBC & Chem 7: 01/11/17 08:21 01/11/17 08:21 Labs: Abnormal Lab Results - Last 24 Hours (Table) 01/11/17 01/11/17 Range/Units 08:21 08:21 RBC 4.03 L (4.30-5.90) m/uL Hgb 12.9 L (13.0-17.5) gm/dL Hct 38.9 L (39.0-53.0) % Calcium 7.5 L (8.4-10.2) mg/dL Total Protein 6.1 L (6.3-8.2) g/dL Albumin 2.9 L (3.5-5.0) g/dL Microbiology - Last 24 Hours (Table) 01/10/17 04:44 Urine Culture - Preliminary Urine,Voided Gram Neg Bacilli 01/10/17 08:45 Blood Culture - Preliminary Blood No Growth after 24 hours 01/10/17 04:44 Blood Culture - Preliminary Blood No Growth after 24 hours Assessment and Plan Plan: Impression Present on admission acute lymphedema with significant swelling and redness and cellulitis involving the bilateral lower extremities from the knees down to the toes Morbid obesity BMI 38 Limited mobility with chronic debility Present on admission leukocytosis likely reactive to cellulitis of the lower extremities Hypothyroid on supplements Hypertension essential Dopplers to the bilateral lower extremities no evidence of a DVT Plan Await infectious diseases input Await vascular Dr. Tse to evaluate the lymphedema Keep legs elevated Resume home meds as appropriate IV antibiotics per infectious disease DVT and GI prophylaxis Further recommendations pending The above impression and plan of care have been discussed and directed by signing physician. Madeline Kellogg nurse practitioner acting as scribe for signing physician.
[2017-01-12] MEDS: LEVOTHYROXINE 75 MCG TAB PO SCH (06:33)
--- NOTE | 2017-01-12 07:28 | PN ---
DATE OF SERVICE: 01/11/2017 Reason for followup is bilateral lower extremity cellulitis. INTERVAL HISTORY: The patient is afebrile, has been feeling better, breathing comfortably. Denies significant chest pain, shortness of breath, no cough. On examination, blood pressure 106/64 with a pulse of 55, temperature 98.8, she is 95% on room air. General description is an elderly male, lying in bed in no distress. RESPIRATORY SYSTEM: Unlabored breathing, clear to auscultation anteriorly. HEART: S1, S2, regular rate and rhythm. ABDOMEN: Soft, no tenderness, mild distal leg swelling. ( ). LABS: White count normal of 8.5 and BUN of 20 with a creatinine 1.01. DIAGNOSTIC IMPRESSION AND PLAN: Patient with bilateral lower extremity cellulitis with diffuse swelling and redness, likely streptococcal disease. The patient currently responding to the cefazolin that will be continued, along with Jose wrap to keep the swelling down. MTDD
[2017-01-12] MEDS: ceFAZolin 2 GM in SODIUM CHLORIDE 0.9% 100 ML IVPB SCH ×3 (09:59→23:45)
[2017-01-12] MEDS: LISINOPRIL 2.5 MG TAB PO SCH (09:59)
[2017-01-12] MEDS: ENOXAPARIN 40 MG/0.4 ML SYRINGE SQ SCH (10:00)
[2017-01-12] MEDS: FUROSEMIDE 40 MG TAB PO SCH ×2 (10:00→17:23)
[2017-01-12] MEDS: POTASSIUM CHLORIDE ER 20 MEQ TAB.ER PO SCH ×2 (10:00→21:05)
[2017-01-12 10:21] LABS: ALT 23 U/L (21-72); AST 32 U/L (17-59); Alkaline Phosphatase 53 U/L (38-126); Anion Gap 10 mmol/L; Blood Urea Nitrogen 22 mg/dL (9-20); Calcium 7.6 mg/dL (8.4-10.2); Carbon Dioxide 24 mmol/L (22-30); Chloride 106 mmol/L (98-107); Glucose 85 mg/dL (74-99); Non-African American GFR(MDRD) >60 (>60 ml/min/1.73 sqM); Potassium 3.9 mmol/L (3.5-5.1); Sodium 140 mmol/L (137-145); Total Bilirubin 1.1 mg/dL (0.2-1.3); Total Protein 6.3 g/dL (6.3-8.2)
--- NOTE | 2017-01-12 12:40 | P.PN ---
Subjective 86-year-old gentleman being seen on rounds sitting up in the chair legs are elevated noted a significant decrease in the edema involving the bilateral lower extremities currently has Jose wrap To the Bilateral Lower Extremities Is Being Followed by Infectious Disease for Bilateral Lower Extremity Cellulitis Doppler to the Bilateral Lower Extremities Show No Evidence of a DVT Objective - Vital Signs Vital signs: Vital Signs Temp 97.5 F L 01/12/17 07:00 Pulse 62 01/12/17 07:00 Resp 18 01/12/17 07:00 BP 135/73 01/12/17 07:00 Pulse Ox 97 01/12/17 07:00 Intake & Output 01/11/17 01/12/17 01/12/17 18:59 06:59 18:59 Other: Voiding Method Urinal Urinal Diaper Diaper Incontinent Incontinent # Voids 5 1 3 # Bowel Movements 1 1 - Exam Physical exam 86-year-old gentleman sitting up in a chair legs are elevated pleasant oriented 3 appears in no acute distress Lungs essentially clear adequate air movement Heart S1-S2 audible regular Abdomen obese soft nontender no nausea no vomiting Extremities chronic venous stasis to the bilateral lower extremities chronic lymphedema with decrease edema to the lower extremities redness noted - Labs CBC & Chem 7: 01/11/17 08:21 01/12/17 09:30 Labs: Abnormal Lab Results - Last 24 Hours (Table) 01/12/17 Range/Units 09:30 BUN 22 H (9-20) mg/dL Calcium 7.6 L (8.4-10.2) mg/dL Albumin 3.0 L (3.5-5.0) g/dL Microbiology - Last 24 Hours (Table) 01/10/17 04:44 Urine Culture - Final Urine,Voided Morganella morganii 01/10/17 08:45 Blood Culture - Preliminary Blood No Growth after 48 hours 01/10/17 04:44 Blood Culture - Preliminary Blood No Growth after 48 hours Assessment and Plan Plan: Impression Present on admission acute lymphedema with significant swelling and redness and cellulitis involving the bilateral lower extremities from the knees down to the toes Morbid obesity BMI 38 Limited mobility with chronic debility Present on admission leukocytosis likely reactive to cellulitis of the lower extremities Hypothyroid on supplements Hypertension essential Dopplers to the bilateral lower extremities no evidence of a DVT Plan Continue the IV antibiotics as ordered per infectious disease Jose wrap's to the bilateral lower extremities Await vascular Dr. Tse to evaluate the lymphedema Keep legs elevated Resume home meds as appropriate DVT and GI prophylaxis Further recommendations pending The above impression and plan of care have been discussed and directed by signing physician. Madeline Kellogg nurse practitioner acting as scribe for signing physician.
--- NOTE | 2017-01-12 20:59 | PN ---
DATE OF SERVICE: 01/12/17 REASON FOR FOLLOW UP: 1. Bilateral lower extremity cellulitis. 2. Positive urine culture. INTERVAL HISTORY: The patient is afebrile. He is feeling better. The leg swelling and redness has improved. He denies any pain in the leg area. Denies significant chest pain or shortness of breath or cough. On examination, blood pressure 120/77, pulse 73, temperature 97.6, he is 92% on room air. General description is an elderly age male lying in the bed in no distress. Respiratory system: Unlabored breathing. Clear to auscultation anteriorly. Heart: S1, S2 regular rate and rhythm. Abdomen soft, no tenderness. Legs : Overall swelling persists though redness has improved. LABS: BUN 22 with a creatinine of 1.06. Urine with Morganella though the UA is negative. DIAGNOSTIC IMPRESSION AND PLAN: 1. Patient with bilateral lower extremity cellulitis. The patient seems to have shown overall improvement as far as cellulitis is concerned on IV Cefazolin with a plan to finish therapy with oral Keflex, script was sent to the pharmacy and also recommending an chico wrap to keep the swelling down. 2. Positive urine culture with Morganella. Corresponding UA was negative. The patient with no urine symptoms, more likely contamination. No need for antibiotic therapy for the same thing. MTDD
[2017-01-13] MEDS: LEVOTHYROXINE 75 MCG TAB PO SCH (06:21)
[2017-01-13] MEDS: ENOXAPARIN 40 MG/0.4 ML SYRINGE SQ SCH (08:35)
[2017-01-13] MEDS: POTASSIUM CHLORIDE ER 20 MEQ TAB.ER PO SCH ×2 (08:36→21:57)
[2017-01-13] MEDS: LISINOPRIL 2.5 MG TAB PO SCH (08:36)
[2017-01-13] MEDS: ceFAZolin 2 GM in SODIUM CHLORIDE 0.9% 100 ML IVPB SCH ×3 (08:36→23:54)
[2017-01-13] MEDS: FUROSEMIDE 40 MG TAB PO SCH ×2 (08:36→17:08)
[2017-01-13 09:23] LABS: ALT 21 U/L (21-72); AST 26 U/L (17-59); Alkaline Phosphatase 57 U/L (38-126); Anion Gap 8 mmol/L; Blood Urea Nitrogen 20 mg/dL (9-20); Calcium 7.6 mg/dL (8.4-10.2); Carbon Dioxide 26 mmol/L (22-30); Chloride 106 mmol/L (98-107); Glucose 93 mg/dL (74-99); Non-African American GFR(MDRD) >60 (>60 ml/min/1.73 sqM); Potassium 3.7 mmol/L (3.5-5.1); Sodium 140 mmol/L (137-145); Total Protein 6.1 g/dL (6.3-8.2)
[2017-01-14] MEDS: LEVOTHYROXINE 75 MCG TAB PO SCH (06:25)
--- NOTE | 2017-01-14 07:37 | XR ---
EXAMINATION TYPE: XR chest 2V DATE OF EXAM: 01/14/2017 HISTORY: abnormal prior. REFERENCE: Previous study dated 01/10/2017. FINDINGS: Lung volumes are prominent. The heart is enlarged. There is left basilar atelectasis. I cou ld not exclude a small left effusion. Pulmonary vasculature has improved from previous. IMPRESSION: 1. COPD. 2. CARDIOMEGALY. 3. PERSISTENT ATELECTASIS OR CONSOLIDATION, LEFT LUNG BASE.
[2017-01-14] MEDS: FUROSEMIDE 40 MG TAB PO SCH ×2 (09:27→16:42)
[2017-01-14] MEDS: POTASSIUM CHLORIDE ER 20 MEQ TAB.ER PO SCH ×2 (09:27→21:51)
[2017-01-14] MEDS: LISINOPRIL 2.5 MG TAB PO SCH (09:27)
[2017-01-14] MEDS: ENOXAPARIN 40 MG/0.4 ML SYRINGE SQ SCH (09:28)
[2017-01-14] MEDS: ceFAZolin 2 GM in SODIUM CHLORIDE 0.9% 100 ML IVPB SCH ×2 (09:28→16:42)
[2017-01-14] MEDS: traMADol 50 MG TAB PO PRN ×2 (09:42→21:53)
[2017-01-14 10:08] LABS: ALT 24 U/L (21-72); AST 30 U/L (17-59); Alkaline Phosphatase 51 U/L (38-126); Anion Gap 8 mmol/L; Blood Urea Nitrogen 20 mg/dL (9-20); Carbon Dioxide 23 mmol/L (22-30); Chloride 107 mmol/L (98-107); Glucose 77 mg/dL (74-99); Non-African American GFR(MDRD) >60 (>60 ml/min/1.73 sqM); Sodium 138 mmol/L (137-145); Total Protein 6.4 g/dL (6.3-8.2)
[2017-01-14 10:13] LABS: Basophils # (A) 0.1 k/uL (0-0.2); Basophils % (A) 1 %; CHCM 33.1; Eosinophils # (A) 0.3 k/uL (0-0.7); Eosinophils % (A) 5 %; HCT 39.3 % (39.0-53.0); HDW 2.49; Luc # (Auto) 0.15; Luc % (Auto) 2; Lymphocytes # (A) 1.9 k/uL (1.0-4.8); Lymphocytes % (A) 29 %; MCH 34.6 pg (25.0-35.0); MCHC 35.6 g/dL (31.0-37.0); MCV 97.3 fL (80.0-100.0); Monocytes # (A) 0.6 k/uL (0-1.0); Monocytes % (A) 10 %; Neutrophils # (A) 3.4 k/uL (1.3-7.7); Neutrophils % (A) 53 %; RBC 4.04 m/uL (4.30-5.90); RDW 13.8 % (11.5-15.5); WBC 6.4 k/uL (3.8-10.6); WBC (Perox) 5.58
[2017-01-14 10:16] LABS: Potassium 4.1 mmol/L (3.5-5.1)
--- NOTE | 2017-01-14 16:04 | PN ---
DATE OF SERVICE: 01/13/2017 REASON FOR FOLLOW UP: Bilateral lower extremity cellulitis. INTERVAL HISTORY: The patient is afebrile. He is breathing comfortably. Denies significant chest pain or shortness of breath. No cough, no abdominal pain. ( ) in the left area. On examination, his blood pressure is 108/69 with a pulse of 56, temperature 98 , he is 94% on room air. GENERAL DESCRIPTION: Elderly male lying in bed in no distress. RESPIRATORY: Unlabored breathing. Clear to auscultation anteriorly. HEART: S1/S2 regular. ABDOMEN: Soft. No tenderness. Bilateral legs are swollen but the drainage has improved. LABS: BUN of 20 with a creatinine of 0.97. DIAGNOSTIC IMPRESSION: Patient with bilateral lower extremity cellulitis with decreased swelling and redness, overall improvement of ( ) with the patient currently on ( ) with the plan to change therapy to p.o. Keflex. Script has been sent to his pharmacy. Continue supportive care. MTDD
[2017-01-14] MEDS ORDERED: MINERAL OIL-WHITE PETROLATUM 120 GM JAR TOPICAL PRN (19:17)
--- NOTE | 2017-01-14 19:48 | PN ---
SUBJECTIVE: 86 -year-old white male with bilateral lower extremity cellulitis, positive urine culture. Leg weakness is improving. Denies pain in the leg area. Denies significant shortness of breath or cough. Blood pressure 120s/70s. pulse 70s, temp 97.6, O2 92% on room air. Constitutional: White male in no acute distress. 2 to 3+ pedal edema bilaterally. Weakness into lower extremities. Lymphedema type changes are greatly improved. Urine with Morganella positive. ASSESSMENT: Bilateral lower extremity cellulitis, greatly improved, IV Cefazolin, we will switch to Keflex on Sunday and send him home. Continue with leg elevation. Oxygen level at 94%. We will do a chest x-ray to rule out any significant disease. Otherwise, asymptomatic. Lying in bed at this time. Venous ultrasound of the legs was negative. MTDD
[2017-01-15] MEDS: ceFAZolin 2 GM in SODIUM CHLORIDE 0.9% 100 ML IVPB SCH ×2 (00:55→09:22)
[2017-01-15] MEDS: traMADol 50 MG TAB PO PRN ×2 (05:22→11:52)
[2017-01-15] MEDS: LEVOTHYROXINE 75 MCG TAB PO SCH (06:20)
[2017-01-15 07:23] VITALS: BP 113/61; PULSE 55; RESP 18; TEMP 97.6
[2017-01-15] MEDS: FUROSEMIDE 40 MG TAB PO SCH (09:15)
[2017-01-15] MEDS: POTASSIUM CHLORIDE ER 20 MEQ TAB.ER PO SCH (09:15)
[2017-01-15] MEDS: LISINOPRIL 2.5 MG TAB PO SCH (09:17)
[2017-01-15] MEDS: ENOXAPARIN 40 MG/0.4 ML SYRINGE SQ SCH (09:40)
--- NOTE | 2017-01-15 10:23 | P.DS ---
Providers Date of admission: 01/10/17 05:58 Expected date of discharge: 01/15/17 Attending physician: Riley Jama Consults: 01/10/17 14:35 Consult Physician Urgent Consulting Provider: Carmel Walker Consult Reason/Comments: Cellulitis Do you want consulting provider notified?: Yes 01/10/17 22:52 Consult Physician Urgent Consulting Provider: Juvenal Tse Consult Reason/Comments: lymphedema Do you want consulting provider notified?: Yes Primary care physician: [facility] Course: 86-year-old who lives at the [facility] was being seen on the day of the event and was noted to have increased swelling in the bilateral lower extremities with increase redness to the bilateral lower extremities. Patient stated he was having difficulty even raising his legs up off the mattress he felt so weak. Patient does have a history of having chronic lymphedema Patient states his legs have gotten increasingly more swollen over the last several days patient did have venous Doppler studies to the lower extremities that showed no evidence of a DVT. Patient was seen by vascular with no surgical recommendations. Additionally infectious disease did participate in the plan of care patient was started on IV antibiotics patient was treated for lower extremity cellulitis. Patient was started on IV cefazolin with a noted improvement in patient's cellulitis. Additionally patient had a positive urine for Morganella. Corresponding UA was negative. Patient had no urinary symptoms it was felt to be a contamination there was no need for antibiotics at this time. From all consulting physicians patient was felt to be hemodynamically stable and appropriate proceed with a discharge to [facility] facility for increase rehab Impression discharge diagnosis Urinary tract infection ruled out no evidence of corresponding UA negative positive urine culture for Morganella likely a contaminant Present on admission acute lymphedema with significant swelling and redness and cellulitis involving the bilateral lower extremities from the knees down to the toes Morbid obesity BMI 38 Limited mobility with chronic debility Present on admission leukocytosis likely reactive to cellulitis of the lower extremities Hypothyroid on supplements Hypertension essential Dopplers to the bilateral lower extremities no evidence of a DVT the above impression and plan of care have been discussed and directed by signing physician. Madeline Kellogg nurse practitioner acting as scribe for signing physician. Patient Condition at Discharge: Poor Plan - Discharge Summary New Discharge Prescriptions: New Cephalexin [Keflex] 500 mg PO Q8HR #30 cap traMADol HCl [Ultram] 50 mg PO QID PRN #30 tab PRN Reason: Breakthrough Pain Cephalexin [Keflex] 500 mg PO Q8HR #30 cap Continue Lisinopril [Zestril] 2.5 mg PO DAILY Potassium Chloride [Klor-Con 20] 20 meq PO BID Levothyroxine Sodium [Synthroid] 150 mcg PO DAILY Furosemide [Lasix] 80 mg PO QAM Furosemide [Lasix] 40 mg PO AC-SUPPER Discharge Medication List Lisinopril [Zestril] 2.5 mg PO DAILY 06/10/15 [History] Furosemide [Lasix] 80 mg PO QAM 07/12/16 [History] Levothyroxine Sodium [Synthroid] 150 mcg PO DAILY 07/12/16 [History] Potassium Chloride [Klor-Con 20] 20 meq PO BID 07/12/16 [History] Furosemide [Lasix] 40 mg PO AC-SUPPER 09/21/16 [History] Cephalexin [Keflex] 500 mg PO Q8HR #30 cap 01/12/17 [Rx] Cephalexin [Keflex] 500 mg PO Q8HR #30 cap 01/15/17 [Rx] traMADol HCl [Ultram] 50 mg PO QID PRN #30 tab 01/15/17 [Rx] Follow up Appointment(s)/Referral(s): Riley Jama MD [STAFF PHYSICIAN] - 1 Week Activity/Diet/Wound Care/Special Instructions: Jose wraps to the bilateral lower extremities Keep bilateral lower extremities elevated at all times Discharge Disposition: TRANSFER TO SNF/ECF
--- NOTE | 2017-01-15 10:52 | PN ---
SUBJECTIVE: 86-year-old with cellulitis, mild sepsis of the legs. He is clinically improving, almost back to his baseline as far as his legs go. His lymphedema type change is large amount with redness and infection. CARDIOVASCULAR; S1/S2. LUNGS: Clear. ASSESSMENT: 1. Cellulitis of the lower legs. 2. Lymphedema of the lower legs. Continue with IV Kefzol. Switch to Keflex prior to discharge. Dr. Walker will comment on possible cream to go home for his legs and continue oral Keflex. MTDD
--- NOTE | 2017-01-15 17:41 | PN ---
DATE OF SERVICE: 01/14/17 REASON FOR FOLLOW UP: Bilateral lower extremity cellulitis. INTERVAL HISTORY: The patient is afebrile. He is breathing comfortably. The patient denies significant chest pain, shortness of breath, cough, no worsening pain in the leg area. No abdominal pain and no diarrhea. On examination, blood pressure 102/52, pulse 56, temperature 97.3. He is 94 % on room air. General description is an elderly male lying in the bed in no distress. Respiratory system: Unlabored breathing. Clear to auscultation anteriorly. Heart: S1, S2 regular rate and rhythm. Abdomen soft, no tenderness. Bilateral legs are dressed up. No obvious drainage on the dressing. LABS: Hemoglobin 14, white count 6.4. BUN 20. Creatinine 1.07. DIAGNOSTIC IMPRESSION AND PLAN: Patient with bilateral lower extremity cellulitis in a patient with diffuse swelling and redness. The patient did show overall improvement on Cefazolin. Plan to finish therapy with po Keflex with script already sent to the pharmacy. Continue supportive care. MTDD
--- NOTE | 2017-01-16 06:43 | PN ---
DATE OF SERVICE: 01/15/2017 Reason for followup is bilateral lower extremity wound and cellulitis. INTERVAL HISTORY: The patient is afebrile. Has been breathing comfortably. Denies significant chest pain or shortness of breath or cough. No abdominal pain or any worsening pain in the leg area. On examination, blood pressure 113/61 with a pulse of 55, temperature 97.6. He is 93% on room air. General description is an elderly male, lying in bed in no distress. RESPIRATORY SYSTEM: Unlabored breathing. Clear to auscultation anteriorly. HEART: S1 and S2, regular rate and rhythm. ABDOMEN: Soft, no tenderness. LABS: BUN of 20, creatinine 1.07. Hemoglobin is 14, white count 6.4. DIAGNOSTIC IMPRESSION AND PLAN: Patient with bilateral lower extremity cellulitis, seems to have overall clinical improvement. Plan to finish therapy with p.o. Keflex. Script already sent to the pharmacy along with ( ) to keep the swelling down. MTDD
== END 2017-01-15 13:05 | DRG 603 ==
LOC: EC 03:59 → 4MS4W 05:58
PROVIDERS: ADMIT Family Medicine; ATTEND Family Medicine
DX: L03.115 Cellulitis of right lower limb (principal); E66.01 Morbid (severe) obesity due to excess calories; I73.9 Peripheral vascular disease, unspecified; I10 Essential (primary) hypertension; E03.9 Hypothyroidism, unspecified; L03.116 Cellulitis of left lower limb; I44.0 Atrioventricular block, first degree; I89.0 Lymphedema, not elsewhere classified; R32 Unspecified urinary incontinence; Z68.38 Body mass index [BMI] 38.0-38.9, adult; Z85.46 Personal history of malignant neoplasm of prostate; Z88.1 Allergy status to other antibiotic agents; Z88.0 Allergy status to penicillin; Z79.899 Other long term (current) drug therapy
CPT/HCPCS: 36415; 71010; 71020; 80053; 81001; 82550; 82553; 83605; 83735; 83880; 84439; 84443; 84484; 85025; 85610; 85730; 87040; 87077; 87086; 87186; 93005; 93970; 96360; 96361; 99285

== ENCOUNTER 2017-09-18 08:36 | Emergency (ER) | payer MEDICARE, BC ==
--- NOTE | 2017-09-18 09:00 | ED ---
General Adult HPI - General Chief complaint: Weakness Stated complaint: Lower Injury, Weakness Time Seen by Provider: 09/18/17 08:40 Source: patient, EMS, RN notes reviewed Mode of arrival: EMS Limitations: no limitations - History of Present Illness Initial comments: This is an 87-year-old male who is at an adult foster care facility and he slipped out of the chair onto his buttocks and was brought in because of weakness. Patient states yesterday he was able to get up on his own and walk with a walker today he states he is too weak to do so. Patient denies any injury in the fall. Patient denies being short of breath or having any difficulty breathing. Patient denies any chest pain. Patient denies any belly pain. Patient denies headache patient denies any new numbness or focal weakness. Patient denies any lightheadedness dizziness or near syncopal episode. Patient denies any recent fever chills or cough. Patient denies any nausea vomiting or diarrhea. - Related Data Home Medications Medication Instructions Recorded Confirmed Furosemide [Lasix] 80 mg PO HS 07/12/16 09/18/17 Levothyroxine Sodium [Synthroid] 150 mcg PO DAILY 07/12/16 09/18/17 Potassium Chloride [Klor-Con 20] 20 meq PO BID 07/12/16 09/18/17 Furosemide [Lasix] 40 mg PO DAILY 09/21/16 09/18/17 Allergies Allergy/AdvReac Type Severity Reaction Status Date / Time azithromycin [From Zithromax] Allergy Unknown Verified 09/18/17 09:43 Penicillins Allergy Rash/Hives Verified 09/18/17 09:43 strawberry Allergy Rash/Hives Verified 09/18/17 09:43 vancomycin Allergy Rash/Hives Verified 09/18/17 09:43 Review of Systems ROS Statement: Those systems with pertinent positive or pertinent negative responses have been documented in the HPI. ROS Other: All systems not noted in ROS Statement are negative. Past Medical History Past Medical History: Cancer, Hypertension, Memory Impairment, Prostate Disorder , Thyroid Disorder Additional Past Medical History / Comment(s): PER PAST MEDICAL HX 2013:PROSTATE CANCER 2010(SX DONE), INCONT OF URINE WEARS A BRIEF, LYMPH EDEMA JUDY LEGS(LEGS WRAPPED), PVD, LT CATARACT-(PT DID'NT REMEBER THIS" History of Any Multi-Drug Resistant Organisms: None Reported Past Surgical History: Hernia Repair, Prostate Surgery Additional Past Surgical History / Comment(s): RT CATARACT(PT DID'NT REMEMEBR THIS) Past Anesthesia/Blood Transfusion Reactions: Motion Sickness Past Psychological History: No Psychological Hx Reported Smoking Status: Never smoker Past Alcohol Use History: None Reported Past Drug Use History: None Reported - Past Family History Father Family Medical History: Unable to Obtain Mother Family Medical History: Unable to Obtain General Exam - General Exam Comments Initial Comments: GENERAL: Patient is well-developed and well-nourished. Patient is nontoxic and well- hydrated and is in no acute distress. ENT: Neck is soft and supple. No significant lymphadenopathy is noted. Oropharynx is clear. Moist mucous membranes. Neck has full range of motion without eliciting any pain. EYES: The sclera were anicteric and conjunctiva were pink and moist. Extraocular movements were intact and pupils were equal round and reactive to light. Eyelids were unremarkable. PULMONARY: Unlabored respirations. Good breath sounds bilaterally. No audible rales rhonchi or wheezing was noted. CARDIOVASCULAR: There is a regular rate and rhythm without any murmurs gallops or rubs. ABDOMEN: Soft and nontender with normal bowel sounds. SKIN: Skin is clear with no lesions or rashes and otherwise unremarkable. NEUROLOGIC: Patient is alert and oriented x3. Cranial nerves II through XII are grossly intact. Motor and sensory are also intact. Normal speech, volume and content. Symmetrical smile. Cerebellar exam grossly intact. MUSCULOSKELETAL: Patient's legs are grossly edematous and with chronic cellulitis. Patient states he is considerably improved. LYMPHATICS: No significant lymphadenopathy is noted PSYCHIATRIC: Normal psychiatric evaluation. Limitations: no limitations Course Vital Signs 09/18/17 08:43 Temperature 97.7 F Pulse Rate 93 Respiratory 16 Rate Blood Pressure 167/74 O2 Sat by Pulse 99 Oximetry Medical Decision Making - Medical Decision Making EKG shows a sinus rhythm at 65 bpm DE interval is 312 QRS is 66 QT intervals 432 QTC is 449. EKG shows no ST segment elevation or depression - Lab Data Result diagrams: 09/18/17 09:02 09/18/17 09:02 Lab Results 09/18/17 09/18/17 09/18/17 Range/Units 09:02 09:02 09:02 WBC 7.6 (3.8-10.6) k/uL RBC 4.73 (4.30-5.90) m/uL Hgb 15.1 (13.0-17.5) gm/dL Hct 43.9 (39.0-53.0) % MCV 92.9 (80.0-100.0) fL MCH 32.0 (25.0-35.0) pg MCHC 34.5 (31.0-37.0) g/dL RDW 13.3 (11.5-15.5) % Plt Count 188 (150-450) k/uL Neutrophils % 49 % Lymphocytes % 35 % Monocytes % 9 % Eosinophils % 4 % Basophils % 1 % Neutrophils # 3.8 (1.3-7.7) k/uL Lymphocytes # 2.7 (1.0-4.8) k/uL Monocytes # 0.7 (0-1.0) k/uL Eosinophils # 0.3 (0-0.7) k/uL Basophils # 0.0 (0-0.2) k/uL PT (9.0-12.0) sec INR (<1.2) APTT (22.0-30.0) sec Sodium 144 (137-145) mmol/L Potassium 3.9 (3.5-5.1) mmol/L Chloride 105 (98-107) mmol/L Carbon Dioxide 25 (22-30) mmol/L Anion Gap 14 mmol/L BUN 21 H (9-20) mg/dL Creatinine 1.18 (0.66-1.25) mg/dL Est GFR (CKD-EPI)AfAm 64 (>60 ml/min/1.73 sqM) Est GFR (CKD-EPI)NonAf 56 (>60 ml/min/1.73 sqM) Glucose 93 (74-99) mg/dL Plasma Lactic Acid Len (0.7-2.0) mmol/L Calcium 9.1 (8.4-10.2) mg/dL Magnesium 2.1 (1.6-2.3) mg/dL Total Bilirubin 1.3 (0.2-1.3) mg/dL AST 40 (17-59) U/L ALT 31 (21-72) U/L Alkaline Phosphatase 75 (38-126) U/L Total Creatine Kinase 209 H (55-170) U/L CK-MB (CK-2) 2.6 H* (0.0-2.4) ng/mL CK-MB (CK-2) Rel Index 1.2 Troponin I <0.012 (0.000-0.034) ng/mL Total Protein 7.5 (6.3-8.2) g/dL Albumin 4.0 (3.5-5.0) g/dL Urine Color Urine Appearance (Clear) Urine pH (5.0-8.0) Ur Specific [place] (1.001-1.035) Urine Protein (Negative) Urine Glucose (UA) (Negative) Urine Ketones (Negative) Urine Blood (Negative) Urine Nitrite (Negative) Urine Bilirubin (Negative) Urine Urobilinogen (<2.0) mg/dL Ur Leukocyte Esterase (Negative) Urine RBC (0-5) /hpf Urine WBC (0-5) /hpf Ur Squamous Epith Cells (0-4) /hpf Urine Mucus (None) /hpf 09/18/17 09/18/17 09/18/17 Range/Units 09:02 09:02 11:20 WBC (3.8-10.6) k/uL RBC (4.30-5.90) m/uL Hgb (13.0-17.5) gm/dL Hct (39.0-53.0) % MCV (80.0-100.0) fL MCH (25.0-35.0) pg MCHC (31.0-37.0) g/dL RDW (11.5-15.5) % Plt Count (150-450) k/uL Neutrophils % % Lymphocytes % % Monocytes % % Eosinophils % % Basophils % % Neutrophils # (1.3-7.7) k/uL Lymphocytes # (1.0-4.8) k/uL Monocytes # (0-1.0) k/uL Eosinophils # (0-0.7) k/uL Basophils # (0-0.2) k/uL PT 14.0 H (9.0-12.0) sec INR 1.5 H (<1.2) APTT 30.4 H (22.0-30.0) sec Sodium (137-145) mmol/L Potassium (3.5-5.1) mmol/L Chloride (98-107) mmol/L Carbon Dioxide (22-30) mmol/L Anion Gap mmol/L BUN (9-20) mg/dL Creatinine (0.66-1.25) mg/dL Est GFR (CKD-EPI)AfAm (>60 ml/min/1.73 sqM) Est GFR (CKD-EPI)NonAf (>60 ml/min/1.73 sqM) Glucose (74-99) mg/dL Plasma Lactic Acid Len 1.3 (0.7-2.0) mmol/L Calcium (8.4-10.2) mg/dL Magnesium (1.6-2.3) mg/dL Total Bilirubin (0.2-1.3) mg/dL AST (17-59) U/L ALT (21-72) U/L Alkaline Phosphatase (38-126) U/L Total Creatine Kinase (55-170) U/L CK-MB (CK-2) (0.0-2.4) ng/mL CK-MB (CK-2) Rel Index Troponin I (0.000-0.034) ng/mL Total Protein (6.3-8.2) g/dL Albumin (3.5-5.0) g/dL Urine Color Yellow Urine Appearance Cloudy (Clear) Urine pH 6.0 (5.0-8.0) Ur Specific [place] 1.024 (1.001-1.035) Urine Protein Trace H (Negative) Urine Glucose (UA) Negative (Negative) Urine Ketones Negative (Negative) Urine Blood Negative (Negative) Urine Nitrite Negative (Negative) Urine Bilirubin Negative (Negative) Urine Urobilinogen 2.0 (<2.0) mg/dL Ur Leukocyte Esterase Negative (Negative) Urine RBC 2 (0-5) /hpf Urine WBC 3 (0-5) /hpf Ur Squamous Epith Cells 2 (0-4) /hpf Urine Mucus Rare H (None) /hpf Disposition Clinical Impression: Weakness Disposition: HOME SELF-CARE Instructions: Weakness (ED) Referrals: Chi Toledo DO [Primary Care Provider] - 1-2 days Time of Disposition: 12:02
[2017-09-18 09:28] LABS: INR 1.5 (<1.2); Partial Thromboplastin Time 30.4 sec (22.0-30.0)
[2017-09-18 09:29] LABS: Calcium 9.1 mg/dL (8.4-10.2); Magnesium 2.1 mg/dL (1.6-2.3); Total Bilirubin 1.3 mg/dL (0.2-1.3); Total Protein 7.5 g/dL (6.3-8.2)
[2017-09-18 09:41] LABS: Basophils % (A) 1 %; Creatine Kinase 209 U/L (55-170); Eosinophils # (A) 0.3 k/uL (0-0.7); Eosinophils % (A) 4 %; HCT 43.9 % (39.0-53.0); HGB 15.1 gm/dL (13.0-17.5); Lymphocytes # (A) 2.7 k/uL (1.0-4.8); Lymphocytes % (A) 35 %; MCHC 34.5 g/dL (31.0-37.0); MCV 92.9 fL (80.0-100.0); Mean Platelet Volume 7.2; Monocytes # (A) 0.7 k/uL (0-1.0); Monocytes % (A) 9 %; Neutrophils # (A) 3.8 k/uL (1.3-7.7); Neutrophils % (A) 49 %; Platelet Count 188 k/uL (150-450); Potassium 3.9 mmol/L (3.5-5.1); RBC 4.73 m/uL (4.30-5.90); RDW 13.3 % (11.5-15.5); WBC 7.6 k/uL (3.8-10.6)
[2017-09-18 09:53] LABS: Troponin I <0.012 ng/mL (0.000-0.034)
[2017-09-18 09:55] LABS: Creatine Kinase MB 2.6 ng/mL (0.0-2.4)
[2017-09-18 11:45] LABS: Appearance,Urine Cloudy (Clear); Bilirubin,Urine Negative (Negative); Blood,Urine Negative (Negative); Color,Urine Yellow; Glucose,Urine (UA) Negative (Negative); Ketones,Urine Negative (Negative); Leukocyte Esterase,Urine Negative (Negative); Mucus,Urine Rare /hpf; Nitrite,Urine Negative (Negative); Protein,Urine Trace (Negative); RBC,Urine 2 /hpf (0-5); Specific Gravity,Urine 1.024 (1.001-1.035); Squamous Epithelial Cell,Urine 2 /hpf (0-4); WBC,Urine 3 /hpf (0-5)
[2017-09-18 12:44] VITALS: BP 149/90; PULSE 94; RESP 20; TEMP 98
== END 2017-09-18 12:50 | disposition home or self-care (01) ==
LOC: EC 08:36
DX: R53.1 Weakness (principal); I10 Essential (primary) hypertension; E07.9 Disorder of thyroid, unspecified; Z85.46 Personal history of malignant neoplasm of prostate; Z79.899 Other long term (current) drug therapy; Z88.0 Allergy status to penicillin; Z88.1 Allergy status to other antibiotic agents; Z91.018 Allergy to other foods
CPT/HCPCS: 36415; 80053; 81001; 82550; 82553; 83605; 83735; 84484; 85025; 85610; 85730; 93005; 99285

== ENCOUNTER 2017-11-23 06:20 | Emergency (ER) | payer MEDICARE, BC ==
[2017-11-23 07:12] LABS: Basophils # (A) 0.1 k/uL (0-0.2); Basophils % (A) 1 %; Eosinophils # (A) 0.4 k/uL (0-0.7); Eosinophils % (A) 4 %; HCT 42.1 % (39.0-53.0); HGB 14.5 gm/dL (13.0-17.5); Lymphocytes # (A) 2.4 k/uL (1.0-4.8); Lymphocytes % (A) 29 %; MCH 32.7 pg (25.0-35.0); MCHC 34.4 g/dL (31.0-37.0); MCV 94.9 fL (80.0-100.0); Mean Platelet Volume 6.9; Monocytes # (A) 0.7 k/uL (0-1.0); Monocytes % (A) 9 %; Neutrophils # (A) 4.7 k/uL (1.3-7.7); Neutrophils % (A) 56 %; Platelet Count 200 k/uL (150-450); RBC 4.43 m/uL (4.30-5.90); RDW 13.1 % (11.5-15.5); WBC 8.4 k/uL (3.8-10.6)
[2017-11-23 07:13] LABS: INR 1.2 (<1.2); Prothrombin Time 11.2 sec (9.0-12.0)
[2017-11-23 07:17] LABS: Albumin 3.9 g/dL (3.5-5.0); Calcium 8.6 mg/dL (8.4-10.2); Potassium 3.7 mmol/L (3.5-5.1); Total Bilirubin 1.3 mg/dL (0.2-1.3); Total Protein 6.9 g/dL (6.3-8.2)
[2017-11-23 07:37] LABS: Creatine Kinase 202 U/L (55-170)
--- NOTE | 2017-11-23 07:37 | XR ---
EXAMINATION TYPE: XR chest 2V DATE OF EXAM: 11/23/2017 COMPARISON: 01/14/2017 HISTORY: Shortness of breath TECHNIQUE: Frontal and lateral views of the chest are obtained. FINDINGS: There is redemonstration of cardiomegaly and left basilar subsegmental atelectasis. No new pulmonary vascular congestion, focal consolidation or sizable pleural effusion. Osseous structures a re demineralized but intact. Right hilum is somewhat prominent but similar to the prior. IMPRESSION: Chronic left basilar subsegmental atelectasis with no acute cardiopulmonary process.
[2017-11-23 07:51] LABS: Troponin I <0.012 ng/mL (0.000-0.034)
--- NOTE | 2017-11-23 07:51 | ED ---
General Adult HPI - General Chief complaint: Fall Stated complaint: Weakness Time Seen by Provider: 11/23/17 07:02 Source: patient, EMS, RN notes reviewed, old records reviewed Mode of arrival: EMS Limitations: physical limitation - History of Present Illness Initial comments: 87 -year-old male presenting with fall. Patient lives in an assisted living facility. He states he attempted to stand and slid from his chair. He was unable to get up. Patient is primarily nonambulatory at baseline. There was no reported head injury. Patient has no pain complaints the time my evaluation. He does have significant lower extremity edema which she states is chronic for the past several years. Denies fever or chills. Denies cough. Denies chest pain or shortness of breath. Denies abdominal pain. - Related Data Home Medications Medication Instructions Recorded Confirmed Furosemide [Lasix] 80 mg PO HS 07/12/16 09/18/17 Levothyroxine Sodium [Synthroid] 150 mcg PO DAILY 07/12/16 09/18/17 Potassium Chloride [Klor-Con 20] 20 meq PO BID 07/12/16 09/18/17 Furosemide [Lasix] 40 mg PO DAILY 09/21/16 09/18/17 Allergies Allergy/AdvReac Type Severity Reaction Status Date / Time azithromycin [From Zithromax] Allergy Unknown Verified 11/23/17 06:35 Penicillins Allergy Rash/Hives Verified 11/23/17 06:35 strawberry Allergy Rash/Hives Verified 11/23/17 06:35 vancomycin Allergy Rash/Hives Verified 11/23/17 06:35 Review of Systems ROS Statement: Those systems with pertinent positive or pertinent negative responses have been documented in the HPI. ROS Other: All systems not noted in ROS Statement are negative. Past Medical History Past Medical History: Cancer, Hypertension, Memory Impairment, Prostate Disorder , Thyroid Disorder Additional Past Medical History / Comment(s): PER PAST MEDICAL HX 2013:PROSTATE CANCER 2011(SX DONE), INCONT OF URINE WEARS A BRIEF, LYMPH EDEMA JUDY LEGS(LEGS WRAPPED), PVD, LT CATARACT-(PT DID'NT REMEBER THIS" History of Any Multi-Drug Resistant Organisms: None Reported Past Surgical History: Hernia Repair, Prostate Surgery Additional Past Surgical History / Comment(s): RT CATARACT(PT DID'NT REMEMEBR THIS) Past Anesthesia/Blood Transfusion Reactions: Motion Sickness Past Psychological History: No Psychological Hx Reported Smoking Status: Never smoker Past Alcohol Use History: None Reported Past Drug Use History: None Reported - Past Family History Father Family Medical History: Unable to Obtain Mother Family Medical History: Unable to Obtain General Exam Limitations: physical limitation General appearance: alert, in no apparent distress Head exam: Present: atraumatic, normocephalic Eye exam: Present: normal appearance, PERRL Neck exam: Present: normal inspection, full ROM. Absent: tenderness, meningismus Respiratory exam: Absent: normal lung sounds bilaterally, respiratory distress Cardiovascular Exam: Present: regular rate, irregular rhythm GI/Abdominal exam: Present: soft. Absent: distended, tenderness Extremities exam: Present: pedal edema (Bilateral chronic venous Stasis, erythema) Neurological exam: Present: alert, oriented X3, CN II-XII intact. Absent: motor sensory deficit Psychiatric exam: Present: normal affect, normal mood Skin exam: Present: warm, dry. Absent: cyanosis, diaphoretic Course Vital Signs 11/23/17 11/23/17 06:22 07:48 Temperature 97.8 F Pulse Rate 60 61 Respiratory 16 18 Rate Blood Pressure 159/92 127/81 O2 Sat by Pulse 96 97 Oximetry EKG Findings - EKG Comments: EKG Findings:: EKG: Atrial fibrillation no ST segment elevation or depression, rate of 69, QRS duration 80, QTC 443 Medical Decision Making - Medical Decision Making 87-year-old male presenting with fall from his chair. Patient has no specific complaints. No injuries identified on exam. He does have bilateral chronic venous stasis and erythema. Workup reveals normal CBC, normal CMP, urinalysis is clear, chest x-ray shows no acute process. There is chronic atelectasis. Patient's vital signs remained stable. He is in no acute distress. He will be discharged back to the assisted living facility. - Lab Data Result diagrams: 11/23/17 06:52 11/23/17 06:52 Lab Results 11/23/17 11/23/17 11/23/17 Range/Units 06:52 06:52 06:52 WBC 8.4 (3.8-10.6) k/uL RBC 4.43 (4.30-5.90) m/uL Hgb 14.5 (13.0-17.5) gm/dL Hct 42.1 (39.0-53.0) % MCV 94.9 (80.0-100.0) fL MCH 32.7 (25.0-35.0) pg MCHC 34.4 (31.0-37.0) g/dL RDW 13.1 (11.5-15.5) % Plt Count 200 (150-450) k/uL Neutrophils % 56 % Lymphocytes % 29 % Monocytes % 9 % Eosinophils % 4 % Basophils % 1 % Neutrophils # 4.7 (1.3-7.7) k/uL Lymphocytes # 2.4 (1.0-4.8) k/uL Monocytes # 0.7 (0-1.0) k/uL Eosinophils # 0.4 (0-0.7) k/uL Basophils # 0.1 (0-0.2) k/uL PT (9.0-12.0) sec INR (<1.2) Sodium 143 (137-145) mmol/L Potassium 3.7 (3.5-5.1) mmol/L Chloride 103 (98-107) mmol/L Carbon Dioxide 29 (22-30) mmol/L Anion Gap 11 mmol/L BUN 21 H (9-20) mg/dL Creatinine 1.15 (0.66-1.25) mg/dL Est GFR (CKD-EPI)AfAm 67 (>60 ml/min/1.73 sqM) Est GFR (CKD-EPI)NonAf 58 (>60 ml/min/1.73 sqM) Glucose 102 H (74-99) mg/dL Plasma Lactic Acid Len (0.7-2.0) mmol/L Calcium 8.6 (8.4-10.2) mg/dL Total Bilirubin 1.3 (0.2-1.3) mg/dL AST 34 (17-59) U/L ALT 29 (21-72) U/L Alkaline Phosphatase 71 (38-126) U/L Total Creatine Kinase 202 H (55-170) U/L CK-MB (CK-2) 3.1 H* (0.0-2.4) ng/mL CK-MB (CK-2) Rel Index 1.5 Troponin I <0.012 (0.000-0.034) ng/mL Total Protein 6.9 (6.3-8.2) g/dL Albumin 3.9 (3.5-5.0) g/dL Urine Color Urine Appearance (Clear) Urine pH (5.0-8.0) Ur Specific [place] (1.001-1.035) Urine Protein (Negative) Urine Glucose (UA) (Negative) Urine Ketones (Negative) Urine Blood (Negative) Urine Nitrite (Negative) Urine Bilirubin (Negative) Urine Urobilinogen (<2.0) mg/dL Ur Leukocyte Esterase (Negative) 11/23/17 11/23/17 11/23/17 Range/Units 06:52 06:52 08:30 WBC (3.8-10.6) k/uL RBC (4.30-5.90) m/uL Hgb (13.0-17.5) gm/dL Hct (39.0-53.0) % MCV (80.0-100.0) fL MCH (25.0-35.0) pg MCHC (31.0-37.0) g/dL RDW (11.5-15.5) % Plt Count (150-450) k/uL Neutrophils % % Lymphocytes % % Monocytes % % Eosinophils % % Basophils % % Neutrophils # (1.3-7.7) k/uL Lymphocytes # (1.0-4.8) k/uL Monocytes # (0-1.0) k/uL Eosinophils # (0-0.7) k/uL Basophils # (0-0.2) k/uL PT 11.2 (9.0-12.0) sec INR 1.2 H (<1.2) Sodium (137-145) mmol/L Potassium (3.5-5.1) mmol/L Chloride (98-107) mmol/L Carbon Dioxide (22-30) mmol/L Anion Gap mmol/L BUN (9-20) mg/dL Creatinine (0.66-1.25) mg/dL Est GFR (CKD-EPI)AfAm (>60 ml/min/1.73 sqM) Est GFR (CKD-EPI)NonAf (>60 ml/min/1.73 sqM) Glucose (74-99) mg/dL Plasma Lactic Acid Len 1.3 (0.7-2.0) mmol/L Calcium (8.4-10.2) mg/dL Total Bilirubin (0.2-1.3) mg/dL AST (17-59) U/L ALT (21-72) U/L Alkaline Phosphatase (38-126) U/L Total Creatine Kinase (55-170) U/L CK-MB (CK-2) (0.0-2.4) ng/mL CK-MB (CK-2) Rel Index Troponin I (0.000-0.034) ng/mL Total Protein (6.3-8.2) g/dL Albumin (3.5-5.0) g/dL Urine Color Yellow Urine Appearance Clear (Clear) Urine pH 5.5 (5.0-8.0) Ur Specific [place] 1.021 (1.001-1.035) Urine Protein Trace H (Negative) Urine Glucose (UA) Negative (Negative) Urine Ketones Trace H (Negative) Urine Blood Negative (Negative) Urine Nitrite Negative (Negative) Urine Bilirubin Negative (Negative) Urine Urobilinogen 2.0 (<2.0) mg/dL Ur Leukocyte Esterase Negative (Negative) Disposition Clinical Impression: Fall, Chronic venous stasis Disposition: HOME SELF-CARE Condition: Fair Instructions: Fall Prevention for Older Adults (ED) Is patient prescribed a controlled substance at d/c from ED?: No Referrals: Chi Toledo DO [Primary Care Provider] - 1-2 days Time of Disposition: 09:09
[2017-11-23 07:58] LABS: Creatine Kinase MB 3.1 ng/mL (0.0-2.4)
[2017-11-23 09:00] LABS: Appearance,Urine Clear (Clear); Bilirubin,Urine Negative (Negative); Blood,Urine Negative (Negative); Color,Urine Yellow; Glucose,Urine (UA) Negative (Negative); Ketones,Urine Trace (Negative); Leukocyte Esterase,Urine Negative (Negative); Nitrite,Urine Negative (Negative); PH, Urine 5.5 (5.0-8.0); Protein,Urine Trace (Negative); Specific Gravity,Urine 1.021 (1.001-1.035)
[2017-11-23 09:37] VITALS: BP 138/57; PULSE 80; RESP 20; TEMP 99
== END 2017-11-23 10:21 | disposition home or self-care (01) ==
LOC: EC 06:20
DX: I87.8 Other specified disorders of veins (principal); I10 Essential (primary) hypertension; E07.9 Disorder of thyroid, unspecified; Z85.46 Personal history of malignant neoplasm of prostate; Z79.899 Other long term (current) drug therapy; Z88.1 Allergy status to other antibiotic agents; Z88.0 Allergy status to penicillin; Z91.018 Allergy to other foods; W07.XXXA Fall from chair, initial encounter; Y92.098 Other place in other non-institutional residence as the place of occurrence of the external cause
CPT/HCPCS: 36415; 71046; 80053; 81003; 82550; 82553; 83605; 84484; 85025; 85610; 93005; 99285

== ENCOUNTER 2018-05-14 02:07 | Emergency (ER) | payer MEDICARE, BC ==
[2018-05-14 02:17] VITALS: RESP 19
--- NOTE | 2018-05-14 02:55 | ED ---
Fall HPI - General Chief Complaint: Fall Stated Complaint: Fall Time Seen by Provider: 05/14/18 02:43 Source: patient, EMS Mode of arrival: EMS - History of Present Illness Initial Comments: Crispin is an 88-year-old male who presents the ED via EMS for evaluation of left knee pain after a mechanical fall at home. Patient reports that he was walking from his room to the cafeteria to return to [employer], he was using his walker like he is supposed to however while walking he tripped falling onto his hands and knees. He complains of pain in his left knee as well as an abrasion to his right hand from striking his hand on the walker. Patient did not hit his head or lose consciousness. However his facility policy is that all patients who fall be evaluated. - Related Data Home Medications Medication Instructions Recorded Confirmed Furosemide [Lasix] 80 mg PO HS 07/12/16 11/23/17 Levothyroxine Sodium [Synthroid] 150 mcg PO DAILY 07/12/16 11/23/17 Potassium Chloride [Klor-Con 20] 20 meq PO BID 07/12/16 11/23/17 Furosemide [Lasix] 40 mg PO DAILY 09/21/16 11/23/17 Allergies Allergy/AdvReac Type Severity Reaction Status Date / Time azithromycin [From Zithromax] Allergy Unknown Verified 11/23/17 06:35 Penicillins Allergy Rash/Hives Verified 11/23/17 06:35 strawberry Allergy Rash/Hives Verified 11/23/17 06:35 vancomycin Allergy Rash/Hives Verified 11/23/17 06:35 Review of Systems ROS Statement: Those systems with pertinent positive or pertinent negative responses have been documented in the HPI. ROS Other: All systems not noted in ROS Statement are negative. Past Medical History Past Medical History: Cancer, Hypertension, Memory Impairment, Prostate Disorder , Thyroid Disorder Additional Past Medical History / Comment(s): PER PAST MEDICAL HX 2013:PROSTATE CANCER 2010(SX DONE), INCONT OF URINE WEARS A BRIEF, LYMPH EDEMA JUDY LEGS(LEGS WRAPPED), PVD, LT CATARACT-(PT DID'NT REMEBER THIS" History of Any Multi-Drug Resistant Organisms: None Reported Past Surgical History: Hernia Repair, Prostate Surgery Additional Past Surgical History / Comment(s): RT CATARACT(PT DID'NT REMEMEBR THIS) Past Anesthesia/Blood Transfusion Reactions: Motion Sickness Past Psychological History: No Psychological Hx Reported Smoking Status: Never smoker Past Alcohol Use History: None Reported Past Drug Use History: None Reported - Past Family History Father Family Medical History: Unable to Obtain Mother Family Medical History: Unable to Obtain General Exam - General Exam Comments Initial Comments: Physical Exam GENERAL: Chronically ill-appearing elderly gentleman HENT: Normocephalic, Atraumatic. EYES: PERRL, EOMI PULMONARY: Unlabored respirations. No audible rales rhonchi or wheezing was noted. CARDIOVASCULAR: There is a regular rate and rhythm without any murmurs gallops or rubs. ABDOMEN: Soft and nontender with normal bowel sounds. Midline abdominal wall diastases recti SKIN: Skin changes of bilateral lower extremities consistent with chronic venous stasis : Deferred NEUROLOGIC: Patient is alert and oriented x3. Moving all extremities spontaneously MUSCULOSKELETAL: Found lymphedema of the bilateral lower extremities, patient reports this is chronic and has been present for a number of years is usually wrapped, no open or weeping wounds PSYCHIATRIC: Normal psychiatric evaluation. Limitations: no limitations Limitations: no limitations Course Vital Signs 05/14/18 02:10 Temperature 99.3 F Pulse Rate 70 Respiratory 19 Rate Blood Pressure 135/84 O2 Sat by Pulse 97 Oximetry Medical Decision Making - Medical Decision Making Patient was seen and evaluated history is obtained from the patient and EMS This is a very pleasant 88-year-old male who presents the ED with the complaint of left-sided knee pain after mechanical fall onto his bilateral knees at his longterm X-ray with no evidence of acute fracture, results were discussed with patient who expresses relief At this time the patient is stable for discharge back to the longterm however he does not have transport available. We'll plan for transport by [employer] in the morning. Disposition Clinical Impression: Fall, Contusion of left leg Disposition: HOME SELF-CARE Instructions: Fall Prevention for Older Adults (ED) Is patient prescribed a controlled substance at d/c from ED?: No Referrals: Chi Toledo DO [Primary Care Provider] - 1-2 days
--- NOTE | 2018-05-14 03:10 | XR ---
EXAMINATION TYPE: XR knee complete LT DATE OF EXAM: 05/14/2018 COMPARISON: NONE HISTORY: Knee pain TECHNIQUE: 3 views FINDINGS: There is narrowing and spurring at the patellofemoral joint. I see no fracture nor dislocat ion. There is no sign of joint effusion. 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 No fracture seen.
[2018-05-14 07:00] VITALS: BP 136/67; PULSE 74; TEMP 98.6
== END 2018-05-14 06:51 | disposition home or self-care (01) ==
LOC: EC 02:07
DX: S80.12XA Contusion of left lower leg, initial encounter (principal); I10 Essential (primary) hypertension; E07.9 Disorder of thyroid, unspecified; Z79.899 Other long term (current) drug therapy; Z88.0 Allergy status to penicillin; Z88.1 Allergy status to other antibiotic agents; Z91.018 Allergy to other foods; Z85.46 Personal history of malignant neoplasm of prostate; W01.198A Fall on same level from slipping, tripping and stumbling with subsequent striking against other object, initial encounter; Y93.01 Activity, walking, marching and hiking; Y92.009 Unspecified place in unspecified non-institutional (private) residence as the place of occurrence of the external cause
CPT/HCPCS: 99283

== ENCOUNTER 2018-06-13 15:28 | Emergency (ER) | payer MEDICARE, BC ==
[2018-06-13 15:42] VITALS: TEMP 98.7
[2018-06-13] MEDS ORDERED: SODIUM CHLORIDE 0.9% 1,000 ML IV STA (15:57)
--- NOTE | 2018-06-13 15:59 | ED ---
General Adult HPI - General Chief complaint: Headache Stated complaint: Dizziness Source: patient, EMS Mode of arrival: EMS - Related Data Home Medications Medication Instructions Recorded Confirmed Furosemide [Lasix] 80 mg PO HS 07/12/16 11/23/17 Levothyroxine Sodium [Synthroid] 150 mcg PO DAILY 07/12/16 11/23/17 Potassium Chloride [Klor-Con 20] 20 meq PO BID 07/12/16 11/23/17 Furosemide [Lasix] 40 mg PO DAILY 09/21/16 11/23/17 Allergies Allergy/AdvReac Type Severity Reaction Status Date / Time azithromycin [From Zithromax] Allergy Unknown Verified 06/13/18 15:44 Penicillins Allergy Rash/Hives Verified 06/13/18 15:44 strawberry Allergy Rash/Hives Verified 11/23/17 06:35 vancomycin Allergy Rash/Hives Verified 06/13/18 15:44 Review of Systems ROS Statement: Those systems with pertinent positive or pertinent negative responses have been documented in the HPI. ROS Other: All systems not noted in ROS Statement are negative. Past Medical History Past Medical History: Cancer, Hypertension, Memory Impairment, Prostate Disorder , Thyroid Disorder Additional Past Medical History / Comment(s): PER PAST MEDICAL HX 2013:PROSTATE CANCER 2010(SX DONE), INCONT OF URINE WEARS A BRIEF, LYMPH EDEMA JUDY LEGS(LEGS WRAPPED), PVD, LT CATARACT-(PT DID'NT REMEBER THIS" History of Any Multi-Drug Resistant Organisms: None Reported Past Surgical History: Hernia Repair, Prostate Surgery Additional Past Surgical History / Comment(s): RT CATARACT(PT DID'NT REMEMEBR THIS) Past Anesthesia/Blood Transfusion Reactions: Motion Sickness Past Psychological History: No Psychological Hx Reported Smoking Status: Never smoker Past Alcohol Use History: None Reported Past Drug Use History: None Reported - Past Family History Father Family Medical History: Unable to Obtain Mother Family Medical History: Unable to Obtain Course Vital Signs 06/13/18 06/13/18 15:35 17:33 Temperature 98.7 F Pulse Rate 71 67 Respiratory 18 18 Rate Blood Pressure 115/60 124/86 O2 Sat by Pulse 95 95 Oximetry Medical Decision Making - Medical Decision Making Dictation was produced using [employer] dictation software. please excuse any grammatical, word or spelling errors. Chief Complaint: 88-year-old male past medical history of cancer, hypertension, prostate disease presents via EMS for vague neurologic complaints. History of Present Illness: Patient is 88-year-old male multiple comorbidities presents with generalized weakness. Patient states he feels tingly in his head. He also has some pain in his left trapezius muscle. Patient has no other complaints at this time. He states that his home health nurse told him to come to the emergency department. Patient endorses generalized weakness however does not have any specific complaints. Denies any neurologic deficits. Apparently his home nurse called EMS. EMS reports that patient has intermittent bouts of dizziness. Patient states he does not feel as though the room spinning. Review of systems negative. Patient has no pain complaints. The ROS documented in this emergency department record has been reviewed and confirmed by me. Those systems with pertinent positive or negative responses have been documented in the HPI. All other systems are other negative and/or noncontributory. PHYSICAL EXAM: General Impression: Alert and oriented x3, not in acute distress HEENT: Normocephalic atraumatic, extra-ocular movements intact, pupils equal and reactive to light bilaterally, mucous membranes moist. Cardiovascular: Heart regular rate and rhythm, S1&S2 audible, no murmurs, rubs or gallops Chest: Lungs clear to auscultation bilaterally, no rhonchi, no wheeze, no rales Abdomen: Bowel sounds present, abdomen soft, non-tender, non-distended, no organomegaly Musculoskeletal: Pulses present and equal in all extremities, bilateral lower extremity lymphedema Motor: Power 5/5 bilaterally, no focal deficits noted Neurological: CN II-XII grossly intact, no focal motor or sensory deficits noted Skin: Intact with no visualized rashes Psych: Normal affect and mood ED course: 88-year-old male presents with chief complaint of generalized weakness. Vital signs upon arrival are within acceptable limits. Patient has no specific complaints. He is a poor historian. Laboratory evaluation obtained. Patient has mild hypokalemia. Patient's CO2 potassium. Labs unremarkable. Patient to emergency department. 100 by mouth. Patient prescription for discharge. No clinical suspicion of CVA, TIA for any serious emergent condition. Patient discharged. EKG interpretation: Ventricular rate 68, sinus rhythm with first-degree AV block , MT interval 300, QRS 70, QTc 455. No MT prolongation, no QTC prolongation, no ST or T-wave changes noted. . Overall, this EKG is unremarkable - Lab Data Result diagrams: 06/13/18 15:58 06/13/18 15:58 Lab Results 06/13/18 06/13/18 Range/Units 15:58 15:58 WBC 6.9 (3.8-10.6) k/uL RBC 4.68 (4.30-5.90) m/uL Hgb 15.1 (13.0-17.5) gm/dL Hct 44.6 (39.0-53.0) % MCV 95.3 (80.0-100.0) fL MCH 32.3 (25.0-35.0) pg MCHC 33.9 (31.0-37.0) g/dL RDW 13.6 (11.5-15.5) % Plt Count 195 (150-450) k/uL Neutrophils % 51 % Lymphocytes % 32 % Monocytes % 8 % Eosinophils % 5 % Basophils % 1 % Neutrophils # 3.6 (1.3-7.7) k/uL Lymphocytes # 2.2 (1.0-4.8) k/uL Monocytes # 0.5 (0-1.0) k/uL Eosinophils # 0.4 (0-0.7) k/uL Basophils # 0.1 (0-0.2) k/uL Sodium 142 (137-145) mmol/L Potassium 3.2 L (3.5-5.1) mmol/L Chloride 106 (98-107) mmol/L Carbon Dioxide 28 (22-30) mmol/L Anion Gap 8 mmol/L BUN 20 (9-20) mg/dL Creatinine 1.32 H (0.66-1.25) mg/dL Est GFR (CKD-EPI)AfAm 56 (>60 ml/min/1.73 sqM) Est GFR (CKD-EPI)NonAf 48 (>60 ml/min/1.73 sqM) Glucose 99 (74-99) mg/dL Calcium 8.4 (8.4-10.2) mg/dL Magnesium 2.1 (1.6-2.3) mg/dL Total Bilirubin 1.6 H (0.2-1.3) mg/dL AST 29 (17-59) U/L ALT 31 (21-72) U/L Alkaline Phosphatase 67 (38-126) U/L Total Protein 7.0 (6.3-8.2) g/dL Albumin 3.8 (3.5-5.0) g/dL Disposition Clinical Impression: Dizziness Disposition: HOME SELF-CARE Condition: Good Instructions: Dizziness (ED) Is patient prescribed a controlled substance at d/c from ED?: No Referrals: Chi Toledo DO [Primary Care Provider] - 1-2 days Time of Disposition: 18:56
[2018-06-13 16:44] LABS: Basophils # (A) 0.1 k/uL (0-0.2); Basophils % (A) 1 %; Eosinophils # (A) 0.4 k/uL (0-0.7); Eosinophils % (A) 5 %; HCT 44.6 % (39.0-53.0); HGB 15.1 gm/dL (13.0-17.5); Lymphocytes # (A) 2.2 k/uL (1.0-4.8); Lymphocytes % (A) 32 %; MCH 32.3 pg (25.0-35.0); MCHC 33.9 g/dL (31.0-37.0); MCV 95.3 fL (80.0-100.0); Mean Platelet Volume 6.9; Monocytes # (A) 0.5 k/uL (0-1.0); Monocytes % (A) 8 %; Neutrophils # (A) 3.6 k/uL (1.3-7.7); Neutrophils % (A) 51 %; Platelet Count 195 k/uL (150-450); RBC 4.68 m/uL (4.30-5.90); RDW 13.6 % (11.5-15.5); WBC 6.9 k/uL (3.8-10.6)
[2018-06-13 16:53] LABS: Albumin 3.8 g/dL (3.5-5.0); Calcium 8.4 mg/dL (8.4-10.2); Magnesium 2.1 mg/dL (1.6-2.3); Potassium 3.2 mmol/L (3.5-5.1); Total Bilirubin 1.6 mg/dL (0.2-1.3)
[2018-06-13] MEDS ORDERED: POTASSIUM CHLORIDE ER 20 MEQ TAB.ER PO STA (17:02)
--- NOTE | 2018-06-13 18:13 | XR ---
EXAMINATION TYPE: XR chest 2V DATE OF EXAM: 06/13/2018 COMPARISON: 11/23/2017 HISTORY: Dizziness TECHNIQUE: Frontal and lateral views of the chest are obtained. FINDINGS: There is no heart failure nor confluent pneumonic infiltrate. Costophrenic angles are julian r. There are chest leads. Bony thorax is intact. IMPRESSION: No active cardiopulmonary disease. No heart failure. No change compared to old exam.
[2018-06-13 19:22] VITALS: BP 142/74; PULSE 73; RESP 19
== END 2018-06-13 20:01 | disposition home or self-care (01) ==
LOC: EC 15:28
DX: R42 Dizziness and giddiness (principal); E87.6 Hypokalemia; M79.18 Myalgia, other site; I10 Essential (primary) hypertension; E07.9 Disorder of thyroid, unspecified; Z85.46 Personal history of malignant neoplasm of prostate; Z79.899 Other long term (current) drug therapy; Z88.1 Allergy status to other antibiotic agents; Z88.0 Allergy status to penicillin; Z91.018 Allergy to other foods
CPT/HCPCS: 36415; 71046; 80053; 83735; 85025; 93005; 96360; 99285

== ENCOUNTER 2019-06-19 14:42 | Emergency (ER) | payer MEDICARE, BC ==
[2019-06-19 15:19] LABS: Basophils # (A) 0.1 k/uL (0-0.2); Basophils % (A) 1 %; Eosinophils # (A) 0.4 k/uL (0-0.7); Eosinophils % (A) 5 %; HCT 36.3 % (39.0-53.0); HGB 12.4 gm/dL (13.0-17.5); Lymphocytes # (A) 1.9 k/uL (1.0-4.8); Lymphocytes % (A) 24 %; MCH 32.7 pg (25.0-35.0); MCHC 34.3 g/dL (31.0-37.0); MCV 95.1 fL (80.0-100.0); Mean Platelet Volume 7.4; Monocytes # (A) 0.6 k/uL (0-1.0); Monocytes % (A) 8 %; Neutrophils # (A) 4.8 k/uL (1.3-7.7); Neutrophils % (A) 61 %; Platelet Count 224 k/uL (150-450); RBC 3.81 m/uL (4.30-5.90); RDW 13.4 % (11.5-15.5); WBC 7.9 k/uL (3.8-10.6)
[2019-06-19 15:23] LABS: Albumin 3.4 g/dL (3.5-5.0); Calcium 8.1 mg/dL (8.4-10.2); Potassium 3.3 mmol/L (3.5-5.1); Total Bilirubin 1.7 mg/dL (0.2-1.3); Total Protein 6.5 g/dL (6.3-8.2)
[2019-06-19 15:34] LABS: Prothrombin Time 10.9 sec (9.0-12.0)
--- NOTE | 2019-06-19 16:18 | XR ---
EXAMINATION TYPE: XR chest 2V DATE OF EXAM: 06/19/2019 COMPARISON: Chest x-ray 6 days ago. HISTORY: Cough. TECHNIQUE: Frontal and lateral views of the chest are obtained. FINDINGS: Suboptimal due to large body habitus. There is low lung volumes with persistent patchy late ral left basilar opacity. Right lung remains clear. No pleural effusion or pneumothorax seen lateral view. The cardiac silhouette size remains enlarged. The osseous structures are intact. IMPRESSION: Low lung volumes and cardiomegaly redemonstrated. Cannot exclude patchy acute left basil ar infiltrate and/or atelectasis. No significant change from most recent x-ray. No new infiltrate is seen.
--- NOTE | 2019-06-19 16:25 | ED ---
General Adult HPI - General Chief complaint: Abdominal Pain Time Seen by Provider: 06/19/19 14:55 Source: patient Mode of arrival: ambulatory Limitations: no limitations - History of Present Illness Initial comments: The patient is a 89-year-old male with past medical history of hypertension, prostate disease and thyroid disorder who presents to the emergency room with reported ecchymosis to his left flank. He is a transfer from [facility]. They noted bruising several days ago and reports that it has become larger in size. No reported trauma to the area. He is not on any anticoagulation. He admits to tenderness to touch however denies any deep abdominal pain. No changes in his bowel or bladder habits. He has also had a cough with clear sputum production. A chest x-ray and influenza testing were performed at [facility], both of which were negative. The patient denies any additional areas of bruising. Denies any back or flank pain. Denies any head trauma. No presyncope or syncopal sensation. There are no other alleviating, precipitating or modifying factors - Related Data Home Medications Medication Instructions Recorded Confirmed Levothyroxine Sodium [Synthroid] 150 mcg PO DAILY 07/12/16 06/19/19 Potassium Chloride [Klor-Con 20] 20 meq PO TID 07/12/16 06/19/19 Acetaminophen Tab [Tylenol Tab] 650 mg PO Q4H PRN 06/19/19 06/19/19 Artificial Tears-Hypromellose 2 drops BOTH EYES BID 06/19/19 06/19/19 [Artificial Tear Drops] Artificial Tears-Hypromellose 2 drops BOTH EYES Q6H PRN 06/19/19 06/19/19 [Artificial Tear Drops] Benzonatate [Tessalon Perles] 100 mg PO BID PRN 06/19/19 06/19/19 Bisacodyl [Dulcolax] 10 mg RECTAL DAILY PRN 06/19/19 06/19/19 Furosemide [Lasix] 80 mg PO BID 06/19/19 06/19/19 Hydrocortisone Cream 1 applic TOPICAL BID 06/19/19 06/19/19 [Hydrocortisone 2.5% Cream] Ipratropium-Albuterol Nebulize 3 ml INHALATION RT-Q6H PRN 06/19/19 06/19/19 [Duoneb 0.5 mg-3 mg/3 ml Soln] Loperamide HCl [Imodium A-D] 4 mg PO DAILY PRN 06/19/19 06/19/19 Magnesium Hydroxide [Milk of 7,200 mg PO DAILY PRN 06/19/19 06/19/19 Magnesia Concentrate] Na Phos,M-B/Na Phos,Di-Ba [Fleet 1 dose RECTAL DAILY PRN 06/19/19 06/19/19 Adult] guaiFENesin-DM 100-10MG/5ML 10 ml PO Q4H PRN 06/19/19 06/19/19 [Robitussin DM] Previous Rx's Medication Instructions Recorded Albuterol Nebulized [Ventolin 2.5 mg INHALATION Q4H PRN #25 nebu 06/19/19 Nebulized] Levofloxacin [Levaquin] 750 mg PO DAILY #5 tab 06/19/19 predniSONE 20 mg PO BID #10 tab 06/19/19 Allergies Allergy/AdvReac Type Severity Reaction Status Date / Time azithromycin [From Zithromax] Allergy Unknown Verified 06/19/19 14:58 Penicillins Allergy Rash/Hives Verified 06/19/19 14:58 strawberry Allergy Rash/Hives Verified 06/19/19 14:58 vancomycin Allergy Rash/Hives Verified 06/19/19 14:58 Review of Systems ROS Statement: Those systems with pertinent positive or pertinent negative responses have been documented in the HPI. ROS Other: All systems not noted in ROS Statement are negative. Past Medical History Past Medical History: Cancer, Hypertension, Memory Impairment, Prostate Disorder, Thyroid Disorder Additional Past Medical History / Comment(s): PER PAST MEDICAL HX 2013:PROSTATE CANCER 2010(SX DONE), INCONT OF URINE WEARS A BRIEF, LYMPH EDEMA JUDY LEGS(LEGS WRAPPED), PVD, LT CATARACT-(PT DID'NT REMEBER THIS" History of Any Multi-Drug Resistant Organisms: None Reported Past Surgical History: Hernia Repair, Prostate Surgery Additional Past Surgical History / Comment(s): RT CATARACT(PT DID'NT REMEMEBR T HIS) Past Anesthesia/Blood Transfusion Reactions: Motion Sickness Past Psychological History: No Psychological Hx Reported Smoking Status: Never smoker Past Alcohol Use History: None Reported Past Drug Use History: None Reported - Past Family History Father Family Medical History: Unable to Obtain Mother Family Medical History: Unable to Obtain General Exam Limitations: no limitations General appearance: alert, in no apparent distress Head exam: Present: atraumatic, normocephalic Eye exam: Present: normal appearance ENT exam: Present: mucous membranes moist Neck exam: Present: normal inspection. Absent: tenderness, meningismus Respiratory exam: Present: wheezes, rhonchi. Absent: respiratory distress, rales, accessory muscle use Cardiovascular Exam: Present: regular rate, normal rhythm GI/Abdominal exam: Present: soft, tenderness (left abdomen onto left flank there is an area of ecchymosis and tenderness - measures 20 x 10 cm. Ecchymosis is purple-yellow and appears several days old. No palpable fluid collection. ) Extremities exam: Present: normal inspection, full ROM. Absent: tenderness Back exam: Present: normal inspection. Absent: tenderness Neurological exam: Present: alert Psychiatric exam: Present: normal affect, normal mood Course Vital Signs 06/19/19 06/19/19 14:53 17:35 Temperature 98.6 F 100 F H Pulse Rate 70 77 Respiratory 18 20 Rate Blood Pressure 125/78 111/82 O2 Sat by Pulse 98 98 Oximetry EKG Findings - EKG Comments: EKG Findings:: EKG demonstrates a sinus rhythm with first-degree AV block. Ventricular rate of 73. [place] interval 296. QRS 80. QTC of 480. No acute ST s egment elevations or depressions concerning for ischemic changes Medical Decision Making - Medical Decision Making Upon arrival the patient was placed in room 5. He is hooked up to continuous pulse ox and cardiac monitoring. A 12-lead EKG was performed. Peripheral IV was established. Laboratory studies were conducted. It does show a hemoglobin of 12.4. This is compared patient's previous hemoglobin on May 15 and it was 15. Coag studies are normal. Potassium mildly low at 3.3. Influenza A and B are negative chest x-ray demonstrates low lung volumes and cardiomegaly redemonstrated. Cannot exclude a patchy acute left basilar infiltrate and/or atelectasis. No significant change from his most recent x-ray which was done [place]. CT of the patient's abdomen and pelvis demonstrates a rectus sheath hematoma measuring 3 x 12 cm. I discussed results with the patient. He is hemodynamically stable. I did give him a dose of steroids in the ER. I did recommend treatment of his cough with prednisone, albuterol and antibiotics. He does have an ALLERGY to azithromycin and penicillin therefore i did place the patient on levaquin. He will be discharged back to [facility]. Take medications as prescribed. Follow up with his primary care doctor in 2-4 days. Return to the emergency department for any new or worsening symptoms - Lab Data Result diagrams: 06/19/19 15:05 06/19/19 15:05 Lab Results 06/19/19 06/19/19 06/19/19 Range/Units 15:05 15:05 15:05 WBC 7.9 (3.8-10.6) k/uL RBC 3.81 L (4.30-5.90) m/uL Hgb 12.4 L (13.0-17.5) gm/dL Hct 36.3 L (39.0-53.0) % MCV 95.1 (80.0-100.0) fL MCH 32.7 (25.0-35.0) pg MCHC 34.3 (31.0-37.0) g/dL RDW 13.4 (11.5-15.5) % Plt Count 224 (150-450) k/uL Neutrophils % 61 % Lymphocytes % 24 % Monocytes % 8 % Eosinophils % 5 % Basophils % 1 % Neutrophils # 4.8 (1.3-7.7) k/uL Lymphocytes # 1.9 (1.0-4.8) k/uL Monocytes # 0.6 (0-1.0) k/uL Eosinophils # 0.4 (0-0.7) k/uL Basophils # 0.1 (0-0.2) k/uL PT (9.0-12.0) sec INR (<1.2) APTT (22.0-30.0) sec Sodium 141 (137-145) mmol/L Potassium 3.3 L (3.5-5.1) mmol/L Chloride 108 H (98-107) mmol/L Carbon Dioxide 25 (22-30) mmol/L Anion Gap 8 mmol/L BUN 18 (9-20) mg/dL Creatinine 1.11 (0.66-1.25) mg/dL Est GFR (CKD-EPI)AfAm 68 (>60 ml/min/1.73 sqM) Est GFR (CKD-EPI)NonAf 59 (>60 ml/min/1.73 sqM) Glucose 91 (74-99) mg/dL Plasma Lactic Acid Len (0.7-2.0) mmol/L Calcium 8.1 L (8.4-10.2) mg/dL Total Bilirubin 1.7 H (0.2-1.3) mg/dL AST 35 (17-59) U/L ALT 17 (4-49) U/L Alkaline Phosphatase 78 (38-126) U/L Total Protein 6.5 (6.3-8.2) g/dL Albumin 3.4 L (3.5-5.0) g/dL Influenza Type A RNA Not Detected (Not Detectd) Influenza Type B (PCR) Not Detected (Not Detectd) 06/19/19 06/19/19 Range/Units 15:05 15:05 WBC (3.8-10.6) k/uL RBC (4.30-5.90) m/uL Hgb (13.0-17.5) gm/dL Hct (39.0-53.0) % MCV (80.0-100.0) fL MCH (25.0-35.0) pg MCHC (31.0-37.0) g/dL RDW (11.5-15.5) % Plt Count (150-450) k/uL Neutrophils % % Lymphocytes % % Monocytes % % Eosinophils % % Basophils % % Neutrophils # (1.3-7.7) k/uL Lymphocytes # (1.0-4.8) k/uL Monocytes # (0-1.0) k/uL Eosinophils # (0-0.7) k/uL Basophils # (0-0.2) k/uL PT 10.9 (9.0-12.0) sec INR 1.0 (<1.2) APTT 27.0 (22.0-30.0) sec Sodium (137-145) mmol/L Potassium (3.5-5.1) mmol/L Chloride (98-107) mmol/L Carbon Dioxide (22-30) mmol/L Anion Gap mmol/L BUN (9-20) mg/dL Creatinine (0.66-1.25) mg/dL Est GFR (CKD-EPI)AfAm (>60 ml/min/1.73 sqM) Est GFR (CKD-EPI)NonAf (>60 ml/min/1.73 sqM) Glucose (74-99) mg/dL Plasma Lactic Acid Len 1.9 (0.7-2.0) mmol/L Calcium (8.4-10.2) mg/dL Total Bilirubin (0.2-1.3) mg/dL AST (17-59) U/L ALT (4-49) U/L Alkaline Phosphatase (38-126) U/L Total Protein (6.3-8.2) g/dL Albumin (3.5-5.0) g/dL Influenza Type A RNA (Not Detectd) Influenza Type B (PCR) (Not Detectd) Disposition Clinical Impression: Abdominal wall hematoma, Cough Disposition: HOME SELF-CARE Condition: Stable Instructions (If sedation given, give patient instructions): Hematoma (ED) Additional Instructions: Please follow-up with your primary care doctor in 2-4 days. Return to the emergency room for any new or worsening symptoms Prescriptions: Levofloxacin [Levaquin] 750 mg PO DAILY #5 tab predniSONE 20 mg PO BID #10 tab Albuterol Nebulized [Ventolin Nebulized] 2.5 mg INHALATION Q4H PRN #25 nebu PRN Reason: difficulty in breathing Is patient prescribed a controlled substance at d/c from ED?: No Referrals: Riley Jama MD [Primary Care Provider] - 1-2 days Time of Disposition: 17:14
--- NOTE | 2019-06-19 16:36 | CT ---
EXAMINATION TYPE: CT abdomen pelvis w con DATE OF EXAM: 06/19/2019 COMPARISON: None. HISTORY: Left sided Anterior abdominal pain. CT DLP: 2427 mGycm, Automated Exposure Control for Dose Reduction was Utilized. CONTRAST: CT scan of the abdomen and pelvis is performed without oral but with IV Contrast, patient injected wi th 100 mL of Isovue 300. FINDINGS: LUNG BASES: Respiratory motion artifact degradation. Dependent atelectasis and/or limited consolidati on in both bases. Cardiomegaly noted. LIVER/GB: Rim calcified or porcelain gallbladder noted. Liver somewhat small in size. PANCREAS: Mild generalized atrophy of pancreas is prominent proximal to mid body. SPLEEN: No significant abnormality is seen. ADRENALS: Slight nodular thickening right adrenal gland favors benign etiology measuring subcentimete r in size. KIDNEYS: Small size and cortical thinning in both kidneys. Symmetric cortical medullary uptake and ex cretion is seen with simple appearing 1 cm exophytic cyst anteriorly upper pole of the right kidney o n image 39 series 301. Bladder not greatly distended with mild wall thickening and trabeculation part icularly along superior aspect. BOWEL: Suboptimal evaluation without enteric contrast. No suspicious small large bowel dilatation. PROSTATE/SEMINAL VESICLES: Prostate gland surgically absent with numerous clips extending into the pe lvic sidewalls.. LYMPH NODES: No greater than 1cm abdominal or pelvic lymph nodes are appreciated. OSSEOUS STRUCTURES: Vacuum disc phenomenon with mild to moderate disc space narrowing and spurring L4 -L5 level. Heterotopic ossification left lesser trochanter may be a product of old trauma. Moderate t o severe axial joint space loss in both hips. OTHER: Fairly large fat-containing bilateral inguinal hernias greater on the right side in size. Smal l umbilical hernia containing fat on axial image 67. Asymmetric focal enlargement region of left rectus muscle above umbilicus with heterogeneity relates to rectus sheath hematoma measuring approximately 3 x 12 cm axial image 45 roughly 15 cm craniocauda l dimension over the anterior abdominal wall the left upper to mid abdomen. IMPRESSION: 1. Corresponding to patient's symptoms there is moderate-sized acute left rectus sheath hematoma. Fin dings presumed spontaneous given patient's history. Correlate with bleeding panel. 2. 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 3. Treatment of prostate gland presumed related to neoplasm with treatment change suspected to the ad jacent bladder.
[2019-06-19] MEDS ORDERED: methylPREDNISolone SOD SUCCI 125 MG/2 ML VIAL IV STA (17:08)
[2019-06-19 17:37] VITALS: BP 111/82; PULSE 77; RESP 20; TEMP 100
== END 2019-06-19 17:35 | disposition home or self-care (01) ==
LOC: EC 14:42
DX: S30.1XXA Contusion of abdominal wall, initial encounter (principal); R05 Cough; E87.6 Hypokalemia; R91.8 Other nonspecific abnormal finding of lung field; R06.2 Wheezing; I11.9 Hypertensive heart disease without heart failure; E07.9 Disorder of thyroid, unspecified; Z88.0 Allergy status to penicillin; Z88.1 Allergy status to other antibiotic agents; Z91.018 Allergy to other foods; Z79.52 Long term (current) use of systemic steroids; Z79.890 Hormone replacement therapy; Z79.899 Other long term (current) drug therapy; Z85.46 Personal history of malignant neoplasm of prostate; Z87.448 Personal history of other diseases of urinary system; Z98.890 Other specified postprocedural states; X58.XXXA Exposure to other specified factors, initial encounter
CPT/HCPCS: 99284; 96374; 36415; 93005; 80053; 83605; 85025; 85610; 85730; 87502; 71046; 74177; J2930; Q9967

== ENCOUNTER 2020-05-25 04:08 | Inpatient (IN) | payer MEDICARE, BC ==
--- NOTE | 2020-05-25 04:26 | ED ---
SOB HPI - General Chief Complaint: Shortness of Breath Stated Complaint: SOB Time Seen by Provider: 05/25/20 04:11 Source: patient, EMS Mode of arrival: EMS Limitations: physical limitation - History of Present Illness Initial Comments: This patient is an 89-year-old man sent from halfway to have evaluation for reported increase in cough, congestion, possibly increase in edema. Patient denies pain in the chest or anywhere. MD Complaint: shortness of breath, cough -: unknown Consistency: constant Improves With: nothing Worsens With: nothing - Related Data Home Medications Medication Instructions Recorded Confirmed Levothyroxine Sodium [Synthroid] 150 mcg PO DAILY 07/12/16 06/19/19 Potassium Chloride [Klor-Con 20] 20 meq PO TID 07/12/16 06/19/19 Acetaminophen Tab [Tylenol Tab] 650 mg PO Q4H PRN 06/19/19 06/19/19 Artificial Tears-Hypromellose 2 drops BOTH EYES BID 06/19/19 06/19/19 [Artificial Tear Drops] Artificial Tears-Hypromellose 2 drops BOTH EYES Q6H PRN 06/19/19 06/19/19 [Artificial Tear Drops] Benzonatate [Tessalon Perles] 100 mg PO BID PRN 06/19/19 06/19/19 Furosemide [Lasix] 80 mg PO BID 06/19/19 06/19/19 Hydrocortisone Cream 1 applic TOPICAL BID 06/19/19 06/19/19 [Hydrocortisone 2.5% Cream] Ipratropium-Albuterol Nebulize 3 ml INHALATION RT-Q6H PRN 06/19/19 06/19/19 [Duoneb 0.5 mg-3 mg/3 ml Soln] Loperamide HCl [Imodium A-D] 4 mg PO DAILY PRN 06/19/19 06/19/19 Magnesium Hydroxide [Milk of 7,200 mg PO DAILY PRN 06/19/19 06/19/19 Magnesia Concentrate] Na Phos,M-B/Na Phos,Di-Ba [Fleet 1 dose RECTAL DAILY PRN 06/19/19 06/19/19 Adult] bisacodyL [Dulcolax] 10 mg RECTAL DAILY PRN 06/19/19 06/19/19 guaiFENesin-DM 100-10MG/5ML 10 ml PO Q4H PRN 06/19/19 06/19/19 [Robitussin DM] Previous Rx's Medication Instructions Recorded Albuterol Nebulized [Ventolin 2.5 mg INHALATION Q4H PRN #25 nebu 06/19/19 Nebulized] Levofloxacin [Levaquin] 750 mg PO DAILY #5 tab 06/19/19 predniSONE [Deltasone] 20 mg PO BID #10 tab 06/19/19 Allergies Allergy/AdvReac Type Severity Reaction Status Date / Time azithromycin [From Zithromax] Allergy Unknown Verified 05/25/20 04:17 Penicillins Allergy Rash/Hives Verified 05/25/20 04:17 strawberry Allergy Rash/Hives Verified 05/25/20 04:17 vancomycin Allergy Rash/Hives Verified 05/25/20 04:17 Review of Systems ROS Statement: Those systems with pertinent positive or pertinent negative responses have been documented in the HPI. ROS Other: All systems not noted in ROS Statement are negative. Limitations: ROS unobtainable due to patients medical condition (Underlying dementia) Constitutional: Denies: fever Respiratory: Reports: cough, dyspnea. Denies: hemoptysis Cardiovascular: Reports: edema. Denies: chest pain Gastrointestinal: Denies: abdominal pain, vomiting Musculoskeletal: Denies: back pain Neurological: Denies: headache Past Medical History Past Medical History: Cancer, Hypertension, Memory Impairment, Prostate Disorder, Thyroid Disorder Additional Past Medical History / Comment(s): PER PAST MEDICAL HX 2013:PROSTATE CANCER 2010(SX DONE), INCONT OF URINE WEARS A BRIEF, LYMPH EDEMA JUDY LEGS(LEGS WRAPPED), PVD, LT CATARACT-(PT DID'NT REMEBER THIS" History of Any Multi-Drug Resistant Organisms: None Reported Past Surgical History: Hernia Repair, Prostate Surgery Additional Past Surgical History / Comment(s): RT CATARACT(PT DID'NT REMEMEBR THIS) Past Anesthesia/Blood Transfusion Reactions: Motion Sickness Past Psychological History: No Psychological Hx Reported Smoking Status: Never smoker Past Alcohol Use History: None Reported Past Drug Use History: None Reported - Past Family History Father Family Medical History: Unable to Obtain Mother Family Medical History: Unable to Obtain General Exam Limitations: physical limitation General appearance: alert Head exam: Present: atraumatic, normocephalic Eye exam: Present: normal appearance ENT exam: Present: mucous membranes dry Neck exam: Present: normal inspection Respiratory exam: Present: respiratory distress, rhonchi. Absent: wheezes, rales, accessory muscle use, decreased breath sounds, prolonged expiratory Cardiovascular Exam: Present: regular rate, normal rhythm, normal heart sounds. Absent: systolic murmur, diastolic murmur, rubs, gallop GI/Abdominal exam: Present: soft. Absent: distended, tenderness, guarding, rebound, rigid, mass Extremities exam: Present: normal capillary refill, pedal edema. Absent: calf tenderness Neurological exam: Present: alert Skin exam: Present: warm, dry, intact, other (Venous stasis changes) Course Vital Signs 05/25/20 05/25/20 05/25/20 04:13 04:21 05:05 Temperature 97.9 F Pulse Rate 84 84 Respiratory 28 H 28 H 22 Rate Blood Pressure 99/62 104/79 O2 Sat by Pulse 80 L Oximetry 05/25/20 06:00 Temperature Pulse Rate 86 Respiratory 24 Rate Blood Pressure 94/67 O2 Sat by Pulse 94 L Oximetry Medical Decision Making - Lab Data Result diagrams: 05/25/20 05:40 05/25/20 05:40 Lab Results 05/25/20 05/25/20 05/25/20 Range/Units 05:31 05:40 05:40 WBC 11.0 H (3.8-10.6) k/uL RBC 4.64 (4.30-5.90) m/uL Hgb 15.2 (13.0-17.5) gm/dL Hct 45.1 (39.0-53.0) % MCV 97.0 (80.0-100.0) fL MCH 32.8 (25.0-35.0) pg MCHC 33.8 (31.0-37.0) g/dL RDW 13.8 (11.5-15.5) % Plt Count 236 (150-450) k/uL MPV 7.1 Neutrophils % 76 % Lymphocytes % 16 % Monocytes % 4 % Eosinophils % 2 % Basophils % 1 % Neutrophils # 8.4 H (1.3-7.7) k/uL Lymphocytes # 1.7 (1.0-4.8) k/uL Monocytes # 0.5 (0-1.0) k/uL Eosinophils # 0.2 (0-0.7) k/uL Basophils # 0.1 (0-0.2) k/uL PT 13.5 H (9.0-12.0) sec INR 1.4 H (<1.2) APTT 28.9 (22.0-30.0) sec Sodium (137-145) mmol/L Potassium (3.5-5.1) mmol/L Chloride (98-107) mmol/L Carbon Dioxide (22-30) mmol/L Anion Gap mmol/L BUN (9-20) mg/dL Creatinine (0.66-1.25) mg/dL Est GFR (CKD-EPI)AfAm (>60 ml/min/1.73 sqM) Est GFR (CKD-EPI)NonAf (>60 ml/min/1.73 sqM) Glucose (74-99) mg/dL Plasma Lactic Acid Len (0.7-2.0) mmol/L Calcium (8.4-10.2) mg/dL Total Bilirubin (0.2-1.3) mg/dL AST (17-59) U/L ALT (4-49) U/L Alkaline Phosphatase (38-126) U/L Total Protein (6.3-8.2) g/dL Albumin (3.5-5.0) g/dL Urine Color Yellow Urine Appearance Clear (Clear) Urine pH 6.0 (5.0-8.0) Ur Specific [place] 1.015 (1.001-1.035) Urine Protein Negative (Negative) Urine Glucose (UA) Negative (Negative) Urine Ketones Negative (Negative) Urine Blood Negative (Negative) Urine Nitrite Negative (Negative) Urine Bilirubin Negative (Negative) Urine Urobilinogen 4.0 (<2.0) mg/dL Ur Leukocyte Esterase Negative (Negative) 05/25/20 05/25/20 Range/Units 05:40 05:40 WBC (3.8-10.6) k/uL RBC (4.30-5.90) m/uL Hgb (13.0-17.5) gm/dL Hct (39.0-53.0) % MCV (80.0-100.0) fL MCH (25.0-35.0) pg MCHC (31.0-37.0) g/dL RDW (11.5-15.5) % Plt Count (150-450) k/uL MPV Neutrophils % % Lymphocytes % % Monocytes % % Eosinophils % % Basophils % % Neutrophils # (1.3-7.7) k/uL Lymphocytes # (1.0-4.8) k/uL Monocytes # (0-1.0) k/uL Eosinophils # (0-0.7) k/uL Basophils # (0-0.2) k/uL PT (9.0-12.0) sec INR (<1.2) APTT (22.0-30.0) sec Sodium 137 (137-145) mmol/L Potassium 3.8 (3.5-5.1) mmol/L Chloride 107 (98-107) mmol/L Carbon Dioxide 28 (22-30) mmol/L Anion Gap 2 mmol/L BUN 32 H (9-20) mg/dL Creatinine 1.05 (0.66-1.25) mg/dL Est GFR (CKD-EPI)AfAm 73 (>60 ml/min/1.73 sqM) Est GFR (CKD-EPI)NonAf 63 (>60 ml/min/1.73 sqM) Glucose 107 H (74-99) mg/dL Plasma Lactic Acid Len 3.4 H* (0.7-2.0) mmol/L Calcium 7.8 L (8.4-10.2) mg/dL Total Bilirubin 2.4 H (0.2-1.3) mg/dL AST 32 (17-59) U/L ALT 23 (4-49) U/L Alkaline Phosphatase 77 (38-126) U/L Total Protein 5.2 L (6.3-8.2) g/dL Albumin 2.4 L (3.5-5.0) g/dL Urine Color Urine Appearance (Clear) Urine pH (5.0-8.0) Ur Specific [place] (1.001-1.035) Urine Protein (Negative) Urine Glucose (UA) (Negative) Urine Ketones (Negative) Urine Blood (Negative) Urine Nitrite (Negative) Urine Bilirubin (Negative) Urine Urobilinogen (<2.0) mg/dL Ur Leukocyte Esterase (Negative) - EKG Data -: EKG Interpreted by [facility] EKG shows normal: axis (Normal), intervals (Normal), QRS complexes (Low voltage QRS complexes) Rate: normal Interpretation: nonspecific ST-T wave changes, other (Atrial fibrillation with controlled rate at 78 bpm) Disposition Clinical Impression: COVID-19, Dehydration, Lactic acidosis Disposition: ADMITTED IP TO THIS HOSP Condition: Fair Referrals: Riley Jama MD [Primary Care Provider] - 1-2 days
--- NOTE | 2020-05-25 05:15 | XR ---
EXAM: XR Chest, 1 View CLINICAL HISTORY: ITS.REASON XR Reason: Fever TECHNIQUE: Frontal view of the chest. COMPARISON: Chest radiograph June 19, 2019 FINDINGS/IMPRESSION: Airspace consolidation at the left lung base. Additional patchy airspace opacities within the right mid and upper lung field, medially are noted. Findings are concerning for multifocal infiltrate, and have worsened from June 19, 2019. Suspect, small bilateral pleural effusions. Low lung volumes secondary to poor inspiration. No pneumothorax. Cardiomegaly. Calcified aorta.
[2020-05-25 05:39] LABS: Appearance,Urine Clear (Clear); Bilirubin,Urine Negative (Negative); Blood,Urine Negative (Negative); Color,Urine Yellow; Glucose,Urine (UA) Negative (Negative); Ketones,Urine Negative (Negative); Leukocyte Esterase,Urine Negative (Negative); Nitrite,Urine Negative (Negative); Protein,Urine Negative (Negative); Specific Gravity,Urine 1.015 (1.001-1.035)
[2020-05-25 06:23] LABS: Basophils # (A) 0.1 k/uL (0-0.2); Basophils % (A) 1 %; Eosinophils # (A) 0.2 k/uL (0-0.7); Eosinophils % (A) 2 %; HCT 45.1 % (39.0-53.0); HGB 15.2 gm/dL (13.0-17.5); Lymphocytes # (A) 1.7 k/uL (1.0-4.8); Lymphocytes % (A) 16 %; MCH 32.8 pg (25.0-35.0); MCHC 33.8 g/dL (31.0-37.0); Mean Platelet Volume 7.1; Monocytes # (A) 0.5 k/uL (0-1.0); Monocytes % (A) 4 %; Neutrophils # (A) 8.4 k/uL (1.3-7.7); Neutrophils % (A) 76 %; Platelet Count 236 k/uL (150-450); RBC 4.64 m/uL (4.30-5.90); RDW 13.8 % (11.5-15.5)
[2020-05-25 06:30] LABS: INR 1.4 (<1.2); Partial Thromboplastin Time 28.9 sec (22.0-30.0); Prothrombin Time 13.5 sec (9.0-12.0)
[2020-05-25 06:38] LABS: Albumin 2.4 g/dL (3.5-5.0); Calcium 7.8 mg/dL (8.4-10.2); Potassium 3.8 mmol/L (3.5-5.1); Total Bilirubin 2.4 mg/dL (0.2-1.3); Total Protein 5.2 g/dL (6.3-8.2)
[2020-05-25] MEDS ORDERED: NALOXONE 0.4 MG/ML 1 ML VIAL IV PRN (06:45)
[2020-05-25] MEDS ORDERED: ARTIFICIAL TEARS-HYPROMELLOSE DROPS 15 ML BTL BOTH EYES PRN (09:01)
[2020-05-25] MEDS ORDERED: ACETAMINOPHEN TAB 325 MG TAB PO PRN (09:01)
[2020-05-25] MEDS ORDERED: guaiFENesin-DM 100-10MG/5ML 10 ML CUP PO PRN (09:01)
[2020-05-25] MEDS ORDERED: MAGNESIUM HYDROXIDE 2,400 MG/10 ML CUP PO PRN (09:01)
[2020-05-25] MEDS ORDERED: LOPERAMIDE 2 MG CAP PO PRN (09:01)
[2020-05-25] MEDS ORDERED: IPRATROPIUM-ALBUTEROL 3 ML NEB INHALATION PRN (09:01)
[2020-05-25] MEDS ORDERED: bisacodyL 10 MG SUPP RECTAL PRN (09:01)
[2020-05-25] MEDS: SODIUM CHLORIDE 0.9% 1,000 ML IV SCH ×3 (09:35→22:34)
[2020-05-25] MEDS: ENOXAPARIN 40 MG/0.4 ML SYRINGE SQ SCH (10:10)
[2020-05-25] MEDS: ZINC SULFATE 220 MG CAP PO SCH (10:10)
[2020-05-25] MEDS: LIDOCAINE VISCOUS 2% 15 ML CUP MUCOUS MEM SCH ×4 (12:31→22:35)
[2020-05-25] MEDS: POTASSIUM CHLORIDE ER 20 MEQ TAB.ER PO SCH ×2 (13:39→18:11)
[2020-05-25] MEDS: FUROSEMIDE 40 MG TAB PO SCH (13:39)
[2020-05-25] MEDS: NYSTATIN 100,000 UNIT/ML SUSP 500,000 UNIT/5 ML CUP PO SCH ×3 (13:39→22:30)
[2020-05-25] MEDS ORDERED: [UNRECOGNIZED DRUG - OTHER] PO SCH (17:00)
[2020-05-25] MEDS: ASPIRIN 81 MG PO SCH (18:10)
[2020-05-25] MEDS: methylPREDNISolone SOD SUCCI 40 MG/ML 1 ML VIAL IV SCH (18:11)
--- NOTE | 2020-05-25 18:11 | HP ---
HISTORY AND PHYSICAL This is an 89-year-old white male sent from the custodial for evaluation of increased cough, congestion, increasing edema. He denies pain in the chest or anywhere else. He has increased cough and congestion, and COVID pneumonia and severe lymphedema type changes. He is admitted for severe dehydration. HOME MEDICINES: 1. Synthroid 150 mcg daily. 2. Klor-Con 20 mEq t.i.d. 3. Artificial Tears daily. 4. DuoNeb q.6 hours. 5. Hydrocortisone cream topically b.i.d. 6. Lasix 80 mg b.i.d. 7. Tessalon Perles 100 b.i.d. 8. Imodium 4 mg daily. 9. Hydroxide 7200 mg daily. 10.Robitussin p.r.n. ALLERGIES: AZITHROMYCIN, PENICILLIN, STRAWBERRY, VANCOMYCIN. REVIEW OF SYSTEMS: Fourteen-point review of systems as mentioned above; otherwise negative. PAST MEDICAL HISTORY: Cancer, hypertension, memory impairment, prostate disorder, hypothyroidism, lymphedema in the legs, cataract surgery, history of hernia repair, prostate surgery. SOCIAL HISTORY: He does not smoke or drink alcohol. FAMILY HISTORY: Father and mother PHYSICAL EXAMINATION: He is alert, giving appropriate answers. He has dehydrated, dry mucous membranes. Poor skin turgor. LUNGS: Scattered rhonchi and wheeze. Congestive cough. Prolonged expiratory. CARDIAC: S1, S2. GI: Soft, nontender. EXTREMITIES: Lymphedema type changes in bilateral legs. NEUROLOGIC: Alert and oriented x3. SKIN: Warm, dry, intact. Blood pressure was 99-104 systolic over 62 to 79. Oxygenation was 80% pulse ox up to 94. Temperature 97.9. Lactic acid 3.4, BUN is 32, creatinine 1.05. EKG normal axis, nonspecific ST-T changes, atrial fibrillation, controlled rate. ASSESSMENT: 1. COVID-19. 2. Dehydration. 3. Lactic acidosis. 4. Atrial fibrillation. 5. Lymphedema. We have multiple consultants involved. Rehydrate the patient. Await cardiology recommendations as well as Dr. Walker's summary. MMODL / IJN: [id number] /
[2020-05-25] MEDS: guaiFENesin 600 MG TABLET.ER PO SCH (22:27)
[2020-05-26] MEDS: methylPREDNISolone SOD SUCCI 40 MG/ML 1 ML VIAL IV SCH ×3 (00:20→17:03)
[2020-05-26] MEDS: SODIUM CHLORIDE 0.9% 1,000 ML IV SCH ×2 (05:05→12:57)
[2020-05-26] MEDS: LEVOTHYROXINE 75 MCG TAB PO SCH (06:00)
[2020-05-26] MEDS: guaiFENesin 600 MG TABLET.ER PO SCH ×2 (08:45→22:00)
[2020-05-26] MEDS: ZINC SULFATE 220 MG CAP PO SCH (08:46)
[2020-05-26] MEDS: CHOLECALCIFEROL 1,000 UNIT TAB PO SCH (08:46)
[2020-05-26] MEDS: POTASSIUM CHLORIDE ER 20 MEQ TAB.ER PO SCH ×3 (08:46→17:03)
[2020-05-26] MEDS: ENOXAPARIN 40 MG/0.4 ML SYRINGE SQ SCH ×2 (08:47→22:00)
[2020-05-26] MEDS: NYSTATIN 100,000 UNIT/ML SUSP 500,000 UNIT/5 ML CUP PO SCH ×4 (08:48→22:02)
[2020-05-26] MEDS: LIDOCAINE VISCOUS 2% 15 ML CUP MUCOUS MEM SCH ×3 (08:48→22:02)
--- NOTE | 2020-05-26 08:53 | P.CNPUL ---
History of Present Illness Consult date: 05/26/20 Reason for consult: dyspnea, cough, hypoxemia, pneumonia Chief complaint: Shortness of breath and cough History of present illness: This is a 89-year-old male with complex past medical history resident of [facility] care facility he was noted to be more short of breath coughing sent emergency department for further evaluation his past medical history significant for congestive heart failure, hypothyroidism, COPD, prostate cancer, history of the lower extremity edema, hypertension hypertensive cardiovascular disease, on arrival he was afebrile but however tachypneic with significant hypoxia his oxygen saturation is 80% on room air, blood pressure is marginal, chemistry Sr. of metabolic contraction alkalosis, lactic acid is high at 3.4, his EKG sister of atrial fibrillation with controlled ventricular response, QTC is mildly elevated for 460, drops are elevated, chest x-ray revealed developing pneumonia and left lower lobe, also patchy infiltrate identified in right upper and middle lobe, he has covert 19 pneumonia, currently is being treated with Lovenox, Solu- Medrol and continuation of his home medications, Review of Systems All systems: negative Past Medical History Past Medical History: Cancer, Heart Failure, COPD, Dementia, Hypertension, Memory Impairment, Prostate Disorder, Renal Disease, Thyroid Disorder Additional Past Medical History / Comment(s): Pt admitted to [facility] 05/10/20 and was diagnosed covid + there. He was septic. Exact date unknown. Other hx: Prostate cancer with prostatectomy, urinary incontinence, bilateral lower leg lymphedema/past lower legs cellulitis, PVD, venous insufficiency, past medical hx documents mitral/tricuspid valve disease and thoracic aortic aneurysm but family is uncertain if these were ever diagnosed, UTIs, CKD stage III, bronchitis, skin turns red with vancomycin, hypothyroid, ventral hernia, protein calorie malnutrition, pt now on a pureed/nectar thick liquids. History of Any Multi-Drug Resistant Organisms: None Reported Past Surgical History: Hernia Repair, Prostate Surgery Additional Past Surgical History / Comment(s): Prostatectomy, inguinal hernia repair as a child, R eye cataract removal. Past Anesthesia/Blood Transfusion Reactions: Motion Sickness Smoking Status: Never smoker - Past Family History Father Family Medical History: Myocardial Infarction (PA) Additional Family Medical History / Comment(s): Father at the age of 80yrs with a PA Mother Family Medical History: No Reported History Additional Family Medical History / Comment(s): Mother lived to be 100 yrs old. Medications and Allergies Home Medications Medication Instructions Recorded Confirmed Type Levothyroxine Sodium [Synthroid] 150 mcg PO DAILY@0600 07/12/16 05/25/20 History Potassium Chloride [Klor-Con 20] 20 meq PO TID@0800,1200,1700 07/12/16 05/25/20 History Acetaminophen Tab [Tylenol Tab] 650 mg PO Q4H PRN 06/19/19 05/25/20 History Artificial Tears-Hypromellose 2 drops BOTH EYES Q6H PRN 06/19/19 05/25/20 History [Artificial Tear Drops] Furosemide [Lasix] 80 mg PO DAILY 06/19/19 05/25/20 History Ipratropium-Albuterol Nebulize 3 ml INHALATION RT-Q6H PRN 06/19/19 05/25/20 History [Duoneb 0.5 mg-3 mg/3 ml Soln] Loperamide HCl [Imodium A-D] 2 mg PO Q6H PRN 06/19/19 05/25/20 History Magnesium Hydroxide [Milk of 7,200 mg PO DAILY PRN 06/19/19 05/25/20 History Magnesia Concentrate] Na Phos,M-B/Na Phos,Di-Ba [Fleet 133 ml RECTAL DAILY PRN 06/19/19 05/25/20 History Adult] bisacodyL [Dulcolax] 10 mg RECTAL DAILY PRN 06/19/19 05/25/20 History guaiFENesin-DM 100-10MG/5ML 10 ml PO Q4H PRN 06/19/19 05/25/20 History [Robitussin DM] Albuterol Inhaler [Ventolin Hfa 2 puff PO RT-Q4H PRN 05/25/20 05/25/20 History Inhaler] Ascorbic Acid [Vitamin C] 1,000 mg PO DAILY 05/25/20 05/25/20 History Aspirin EC [Ecotrin Low Dose] 81 mg PO DAILY@1700 05/25/20 05/25/20 History Cholecalciferol [Vitamin D3 (25 2,000 unit PO DAILY 05/25/20 05/25/20 History Mcg = 1000 Iu)] Enoxaparin Sodium 40 mg SQ DAILY 05/25/20 05/25/20 History Fluticasone/Vilanterol [Breo 1 puff INHALATION RT-DAILY 05/25/20 05/25/20 History Ellipta 200-25 Mcg INH] Furosemide [Lasix] 40 mg PO DAILY@1400 05/25/20 05/25/20 History INSULIN ASPART (NovoLOG) [NovoLOG See Protocol SQ ACHS 05/25/20 05/25/20 History (formulary)] Liquacal 30 ml PO BID@0800,1700 05/25/20 05/25/20 History Nystatin 100,000 Unit/ml Susp 5 ml PO ACHS 05/25/20 05/25/20 History [Mycostatin Oral Susp] Spironolactone [Aldactone] 25 mg PO DAILY 05/25/20 05/25/20 History Zinc Sulfate 220 mg PO DAILY 05/25/20 05/25/20 History guaiFENesin [Mucinex] 1,200 mg PO BID 05/25/20 05/25/20 History lidocaine HCL [Lidocaine HCl 5 ml MM QID@10,14,19,23 05/25/20 05/25/20 History Viscous] Allergies Allergy/AdvReac Type Severity Reaction Status Date / Time azithromycin [From Zithromax] Allergy Unknown Verified 05/25/20 06:50 Penicillins Allergy Rash/Hives Verified 05/25/20 06:50 strawberry Allergy Rash/Hives Verified 05/25/20 06:50 vancomycin Allergy Rash/Hives Verified 05/25/20 06:50 Physical Exam Vitals: Vital Signs Temp Pulse Resp BP Pulse Ox 05/26/20 05:00 97.3 F L 59 L 18 118/76 96 05/25/20 21:35 97.5 F L 66 18 118/74 97 05/25/20 17:00 97.6 F 66 17 98/64 95 05/25/20 11:00 98.0 F 77 17 105/86 93 L Intake and Output 05/25/20 05/26/20 05/26/20 22:59 06:59 14:59 Intake Total 480 0 Output Total 1010 Balance 480 -1010 Intake: Intake, IV Titration 0 Amount Sodium Chloride 0.9% 1, 0 000 ml @ 130 mls/hr IV . Q7H42M [facility] Rx#:[id number] Oral 480 Output: Urine 1010 Straight 510 Other: Voiding Method Incontinent # Voids 0 - Constitutional General appearance: average body habitus, cooperative, disheveled - EENT Eyes: PERRLA Ears: bilateral: normal - Neck Neck: normal ROM Carotids: bilateral: upstroke normal - Respiratory Respiratory: bilateral: diminished - Cardiovascular Rhythm: irregularly irregular Heart sounds: normal: S1, S2 - Gastrointestinal General gastrointestinal: normal bowel sounds, soft - Integumentary Integumentary: normal turgor - Musculoskeletal Musculoskeletal: generalized weakness, strength equal bilaterally Results - Laboratory Findings CBC and BMP: 05/25/20 05:40 05/25/20 05:40 PT/INR, D-dimer PT 13.5 sec (9.0-12.0) H 05/25/20 05:40 INR 1.4 (<1.2) H 05/25/20 05:40 Abnormal lab findings: Abnormal Labs 05/25/20 05/25/20 05/25/20 05:40 05:40 05:40 WBC 11.0 H Neutrophils # 8.4 H PT 13.5 H INR 1.4 H BUN 32 H Glucose 107 H Plasma Lactic Acid Len Calcium 7.8 L Total Bilirubin 2.4 H Troponin I Total Protein 5.2 L Albumin 2.4 L 05/25/20 05/25/20 05/26/20 05:40 05:40 02:01 WBC Neutrophils # PT INR BUN Glucose Plasma Lactic Acid Len 3.4 H* Calcium Total Bilirubin Troponin I 0.066 H* 0.039 H* Total Protein Albumin - Diagnostic Findings Chest x-ray: report reviewed, image reviewed (Findings reviewed as above) Assessment and Plan Assessment: Acute hypoxic respiratory failure Bilateral covid 19 pneumonia Sepsis due to above Atrial fibrillation with controlled ventricular response Elevated tropes Intravascular volume depletion and dehydration Metabolic alkalosis/contraction alkalosis Elevated lactic acid Bilateral lower extremity lymphedema Prostate cancer Plan: IV steroids Deep breathing exercises incentive spirometry Supplemental oxygen Prone positioning Lovenox 40 mg subcu every 12 IV Remdesivir for 5 days Gentle rehydration Awaiting further evaluation by cardiovascular services were elevated troponins Time with Patient: Greater than 30
[2020-05-26] MEDS ORDERED: REMDESIVIR 200 MG in SODIUM CHLORIDE 0.9% 250 ML IVPB ONE (09:00)
[2020-05-26] MEDS ORDERED: ENOXAPARIN 40 MG/0.4 ML SYRINGE SQ SCH (09:00)
[2020-05-26] MEDS: SYMBICORT 160-4.5 MCG INHALER INHALATION SCH ×2 (09:39→19:12)
--- NOTE | 2020-05-26 10:28 | P.CRDCN ---
History of Present Illness History of present illness: HISTORY OF PRESENTING ILLNESS This is a pleasant 89-year-old male past medical history significant for prostate cancer, hypertension, venous insufficiency, dementia, COPD and recent diagnosis of COVID with sepsis at [facility] 05/10. 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 He resides at [facility]. We have been asked to see in consultation for atrial fibrillation. He was sent to the ER for increased shortness of breath and cough/congestion. The patient himself is seen and examined sitting up in bed in no acute distress. He cannot answer why he is here and only states that he feels thirsty. He denies chest pain or shortness of breath. His EKG reveals sinus mechanism with first degree AV block, no atrial fibrillation. Chest xray reveals bilateral pleural effusions. Laboratory data reviewed, WBC 11, hemoglobin 15.2, platelets 236, INR 1.4, sodium 137, potassium 3.8, creatinine 1.05, lactic acid on admission 3. 4 repeat after hydration 1.9, troponin 0.0 66 and 0.0 39. Currently maintained on Lasix 40 mg by mouth daily and aspirin 81 mg daily. REVIEW OF SYSTEMS At the time of my exam: CONSTITUTIONAL: Denies fever or chills. CARDIOVASCULAR: Denies chest pain, shortness of breath, orthopnea, PND or palpitations. RESPIRATORY: Denies cough. GASTROINTESTINAL: Denies abdominal pain, diarrhea, constipation, nausea or vom iting. MUSCULOSKELETAL: Denies myalgias. NEUROLOGIC: Denies numbness, tingling or weakness. ENDOCRINE: Denies fatigue, weight change, polydipsia or polyurina. GENITOURINARY: Denies burning, hematuria or urgency with micturation. HEMATOLOGIC: Denies history of anemia or bleeding. PHYSICAL EXAMINATION Blood pressure 118/76 heart rate 59 afebrile and maintaining oxygen saturation on nasal cannula. CONSTITUTIONAL: No apparent distress. Generalized anasarca. HEENT: Head is normocephalic. Pupils are equal, round. Sclerae anicteric. Mucous membranes of the mouth are moist. No JVD. No carotid bruit. CHEST EXAMINATION: Lungs are clear to auscultation. No chest wall tenderness is noted on palpation or with deep breathing. HEART EXAMINATION: Regular rate and rhythm. S1, S2 heard. No murmurs, gallops or rub. ABDOMEN: Soft, nontender. Positive bowel sounds. EXTREMITIES: 2+ peripheral pulses, bilateral lower extremity edema appears secondary to venous insufficiency with dressings in place and no calf tenderness. NEUROLOGIC EXAMINATION: Patient is awake and alert. Aware of year and self. ASSESSMENT Covid 19 Leukocytosis Lactic acidosis Hypertension Dementia Venous insufficiency PLAN No EKG evidence of atrial fibrillation. Mild troponin leak not related to primary myocardial injury. Obtain limited echo to assess LV function. Ongoing medical management and treatment of COVID infection. No further cardiac work-up at this time. Thank you kindly for this consultation. Nurse Practitioner note has been reviewed, I agree with a documented findings and plan of care. Patient was seen and examined. Past Medical History Past Medical History: Cancer, Heart Failure, COPD, Dementia, Hypertension, Memory Impairment, Prostate Disorder, Renal Disease, Thyroid Disorder Additional Past Medical History / Comment(s): Pt admitted to [facility] 05/10/20 and was diagnosed covid + there. He was septic. Exact date unknown. Other hx: Prostate cancer with prostatectomy, urinary incontinence, bilateral lower leg lymphedema/past lower legs cellulitis, PVD, venous insufficiency, past medical hx documents mitral/tricuspid valve disease and thoracic aortic aneurysm but family is uncertain if these were ever diagnosed, UTIs, CKD stage III, bronchitis, skin turns red with vancomycin, hypothyroid, ventral hernia, protein calorie malnutrition, pt now on a pureed/nectar thick liquids. History of Any Multi-Drug Resistant Organisms: None Reported Past Surgical History: Hernia Repair, Prostate Surgery Additional Past Surgical History / Comment(s): Prostatectomy, inguinal hernia repair as a child, R eye cataract removal. Past Anesthesia/Blood Transfusion Reactions: Motion Sickness Smoking Status: Never smoker - Past Family History Father Family Medical History: Myocardial Infarction ([place]) Additional Family Medical History / Comment(s): Father at the age of 80yrs with a AR Mother Family Medical History: No Reported History Additional Family Medical History / Comment(s): Mother lived to be 100 yrs old. Medications and Allergies Home Medications Medication Instructions Recorded Confirmed Type Levothyroxine Sodium [Synthroid] 150 mcg PO DAILY@0600 07/12/16 05/25/20 History Potassium Chloride [Klor-Con 20] 20 meq PO TID@0800,1200,1700 07/12/16 05/25/20 History Acetaminophen Tab [Tylenol Tab] 650 mg PO Q4H PRN 06/19/19 05/25/20 History Artificial Tears-Hypromellose 2 drops BOTH EYES Q6H PRN 06/19/19 05/25/20 History [Artificial Tear Drops] Furosemide [Lasix] 80 mg PO DAILY 06/19/19 05/25/20 History Ipratropium-Albuterol Nebulize 3 ml INHALATION RT-Q6H PRN 06/19/19 05/25/20 History [Duoneb 0.5 mg-3 mg/3 ml Soln] Loperamide HCl [Imodium A-D] 2 mg PO Q6H PRN 06/19/19 05/25/20 History Magnesium Hydroxide [Milk of 7,200 mg PO DAILY PRN 06/19/19 05/25/20 History Magnesia Concentrate] Na Phos,M-B/Na Phos,Di-Ba [Fleet 133 ml RECTAL DAILY PRN 06/19/19 05/25/20 History Adult] bisacodyL [Dulcolax] 10 mg RECTAL DAILY PRN 06/19/19 05/25/20 History guaiFENesin-DM 100-10MG/5ML 10 ml PO Q4H PRN 06/19/19 05/25/20 History [Robitussin DM] Albuterol Inhaler [Ventolin Hfa 2 puff PO RT-Q4H PRN 05/25/20 05/25/20 History Inhaler] Ascorbic Acid [Vitamin C] 1,000 mg PO DAILY 05/25/20 05/25/20 History Aspirin EC [Ecotrin Low Dose] 81 mg PO DAILY@1700 05/25/20 05/25/20 History Cholecalciferol [Vitamin D3 (25 2,000 unit PO DAILY 05/25/20 05/25/20 History Mcg = 1000 Iu)] Enoxaparin Sodium 40 mg SQ DAILY 05/25/20 05/25/20 History Fluticasone/Vilanterol [Breo 1 puff INHALATION RT-DAILY 05/25/20 05/25/20 History Ellipta 200-25 Mcg INH] Furosemide [Lasix] 40 mg PO DAILY@1400 05/25/20 05/25/20 History INSULIN ASPART (NovoLOG) [NovoLOG See Protocol SQ ACHS 05/25/20 05/25/20 History (formulary)] Liquacal 30 ml PO BID@0800,1700 05/25/20 05/25/20 History Nystatin 100,000 Unit/ml Susp 5 ml PO ACHS 05/25/20 05/25/20 History [Mycostatin Oral Susp] Spironolactone [Aldactone] 25 mg PO DAILY 05/25/20 05/25/20 History Zinc Sulfate 220 mg PO DAILY 05/25/20 05/25/20 History guaiFENesin [Mucinex] 1,200 mg PO BID 05/25/20 05/25/20 History lidocaine HCL [Lidocaine HCl 5 ml MM QID@10,14,19,23 05/25/20 05/25/20 History Viscous] Allergies Allergy/AdvReac Type Severity Reaction Status Date / Time azithromycin [From Zithromax] Allergy Unknown Verified 05/25/20 06:50 Penicillins Allergy Rash/Hives Verified 05/25/20 06:50 strawberry Allergy Rash/Hives Verified 05/25/20 06:50 vancomycin Allergy Rash/Hives Verified 05/25/20 06:50 Physical Exam Vitals: Vital Signs Temp Pulse Resp BP Pulse Ox 05/26/20 05:00 97.3 F L 59 L 18 118/76 96 05/25/20 21:35 97.5 F L 66 18 118/74 97 05/25/20 17:00 97.6 F 66 17 98/64 95 05/25/20 11:00 98.0 F 77 17 105/86 93 L Intake and Output 05/25/20 05/26/20 05/26/20 22:59 06:59 14:59 Intake Total 480 0 Output Total 1010 Balance 480 -1010 Intake: Intake, IV Titration 0 Amount Sodium Chloride 0.9% 1, 0 000 ml @ 130 mls/hr IV . Q7H42M [facility] Rx#:[id number] Oral 480 Output: Urine 1010 Straight 510 Other: Voiding Method Incontinent # Voids 0 Results 05/25/20 05:40 05/25/20 05:40 Cardiac Enzymes 05/25/20 05/26/20 Range/Units 05:40 02:01 Troponin I 0.066 H* 0.039 H* (0.000-0.034) ng/mL Current Medications Generic Name Dose Route Start Last Admin Trade Name Freq PRN Reason Stop Dose Admin Acetaminophen 650 mg 05/25/20 09:01 Acetaminophen Tab 325 Mg Tab PO Q4H PRN Mild Pain or Fever > 100.5 Albuterol Sulfate 2 puff 05/26/20 07:33 Albuterol Hfa Inhaler INHALATION RT-Q6H PRN Shortness Of Breath Artificial Tears 2 drops 05/25/20 09:01 Artificial Tears-Hypromellose Drops 15 Ml Btl BOTH EYES Q6H PRN Dry Eye(s) Aspirin 81 mg 05/25/20 17:00 05/25/20 18:10 Aspirin 81 Mg PO 81 mg DAILY@1700 YVAN Administration Bisacodyl 10 mg 05/25/20 09:01 Bisacodyl 10 Mg Supp RECTAL DAILY PRN Constipation Budesonide/Formoterol Fumarate 2 puff 05/26/20 08:00 Symbicort 160-4.5 Mcg Inhaler INHALATION RT-BID YVAN Cholecalciferol 2,000 unit 05/26/20 09:00 05/26/20 08:46 Cholecalciferol 1,000 Unit Tab PO 2,000 unit DAILY YVAN Administration Enoxaparin Sodium 40 mg 05/26/20 21:00 Enoxaparin 40 Mg/0.4 Ml Syringe SQ Q12HR YVAN Furosemide 40 mg 05/25/20 14:00 05/25/20 13:39 Furosemide 40 Mg Tab PO 40 mg DAILY@1400 YVAN Administration Guaifenesin 1,200 mg 05/25/20 21:00 05/26/20 08:45 Guaifenesin 600 Mg Tablet.Er PO 1,200 mg BID YVAN Administration Guaifenesin/Dextromethorphan 10 ml 05/25/20 09:01 Guaifenesin-Dm 100-10mg/5ml 10 Ml Cup PO Q4H PRN Cough Sodium Chloride 1,000 mls @ 130 mls/hr 05/25/20 06:45 05/26/20 05:05 Saline 0.9% IV Not Given .Q7H42M YVAN Remdesivir 100 mg/ Sodium 250 mls @ 250 mls/hr 05/27/20 09:00 Chloride IVPB 05/30/20 09:59 DAILY YVAN Remdesivir 200 mg/ Sodium 250 mls @ 250 mls/hr 05/26/20 09:00 Chloride IVPB 05/26/20 09:59 ONCE ONE Protocol Levothyroxine Sodium 150 mcg 05/26/20 06:00 05/26/20 06:00 Levothyroxine 75 Mcg Tab PO 150 mcg DAILY@0600 YVAN Administration Lidocaine HCl 5 ml 05/25/20 10:00 05/26/20 08:48 Lidocaine Viscous 2% 15 Ml Cup MUCOUS MEM 5 ml QID@10,14,19,23 YVAN Administration Loperamide HCl 2 mg 05/25/20 09:01 Loperamide 2 Mg Cap PO Q6H PRN Diarrhea Magnesium Hydroxide 2,400 mg 05/25/20 09:01 Magnesium Hydroxide 2,400 Mg/10 Ml Cup PO DAILY PRN Constipation Methylprednisolone Sodium Succinate 40 mg 05/25/20 17:45 05/26/20 08:59 Methylprednisolone Sod Succi 40 Mg/Ml 1 Ml Vial IV 40 mg Q8HR YVAN Administration Naloxone HCl 0.2 mg 05/25/20 06:45 Naloxone 0.4 Mg/Ml 1 Ml Vial IV Q2M PRN Opioid Reversal Nystatin 500,000 unit 05/25/20 12:30 05/26/20 08:48 Nystatin 100,000 Unit/Ml Susp 500,000 Unit/5 Ml Cup PO 05/30/20 23:00 500,000 unit ACHS YVAN Administration Potassium Chloride 20 meq 05/25/20 12:00 05/26/20 08:46 Potassium Chloride Er 20 Meq Tab.Er PO 20 meq TID@0800,1200,1700 YVAN Administration Zinc Sulfate 220 mg 05/25/20 09:15 05/26/20 08:46 Zinc Sulfate 220 Mg Cap PO 220 mg DAILY YVAN Administration Intake and Output 05/25/20 05/26/20 05/26/20 22:59 06:59 14:59 Intake Total 480 0 Output Total 1010 Balance 480 -1010 Intake: Intake, IV Titration 0 Amount Sodium Chloride 0.9% 1, 0 000 ml @ 130 mls/hr IV . Q7H42M [facility] Rx#:[id number] Oral 480 Output: Urine 1010 Straight 510 Other: Voiding Method Incontinent # Voids 0 05/25/20 05:40 05/25/20 05:40
--- NOTE | 2020-05-26 11:59 | CDI ---
Documentation Clarification Form Date: 05/26/2020 11:44:06 AM From: Cecy Lou RN CCDS Admit Date: 05/25/2020 06:45:00 AM Patient Name: Crispin Cooper Visit Number: [id number] Discharge Date: ATTENTION: The Clinical Documentation Specialists (CDI) and [facility] Coding Staff appreciate your assistance in clarifying documentation. Please respond to the clarification below the line at the bottom and electronically sign. The CDI & [facility] Coding staff will review the response and follow-up if needed. Please note: Queries are made part of the Legal Health Record. If you have any questions, please contact the author of this message via ITS. Dr. Riley Jama Sepsis is documented in the Pulmonary Consult 05/26/20 History/Risk Factors: 89-year-old male presents to the ED from [facility] for increased shortness of breath and coughing. Recent admission to [facility] for COVID 19. Clinical Indicators: Medical History: HTN; COPD; Dementia and Renal Disease WBC 05/25: 11.0; Neutrophils 8.4 Lactic acid 05/25: 3.4 repeat 1.9 Blood cultures 1215: No growth after 24 hours Vitals signs on admission 05/25: B/P 99/62; HR 84; Temp 97.9 F Oral; RR 28; SpO2 89% 3L nasal cannula Treatment: 05/25 0.9ns 130cchr; Zinc po daily; 05/26 Ventolin Inhaler PRN; Symbicort Inhaler BID; Lovenox SQ Q12HR; 05/27 Remdesivir Ivpb Daily x 4 Bags; In your professional opinion, please clarify if these findings signify one of the following conditions, whether the condition is POA, and cause, if known: Sepsis ruled out Sepsis poa Other, please specify Unable to determine SIRS Criteria (2 or more of the following may indicate SIRS): -Temperature < 96.8F (36C) or > 101.0F (38.3C) -Heart Rate > 90 bpm -Respiratory Rate > 20 breaths/min or PaCO2 < 32 mmHg -White Blood Cell Count > 12,000 or < 4,000 cells/mm3 or > 10% bands -Lactate >2.0 mmol/L (>4.0 is equivalent to septic shock) (Last Revision: September 2017) MTDD
[2020-05-26 13:05] VITALS: BMI 39.3
--- NOTE | 2020-05-26 13:30 | ECHOF ---
Referral Reason:elev trop MEASUREMENTS -------- HEIGHT: 182.9 cm WEIGHT: 131.5 kg BP: FINDINGS -------- Undetermined rhythm. Morbid Obesity Positive Covid patient protocol followed. Limited images however LV EF appears to be 50-55% without wall motion abnormalities. The aortic valve was not well visualized. The mitral valve was not well visualized. The tricuspid valve was not well visualized. The pulmonic valve was not well visualized. CONCLUSIONS -------- 1. Morbid Obesity 2. Positive Covid patient protocol followed. 3. Limited images however LV EF appears to be 50-55% without wall motion abnormalities. 4. The aortic valve was not well visualized. 5. The mitral valve was not well visualized. 6. The tricuspid valve was not well visualized. 7. The pulmonic valve was not well visualized. FRANCHISE MANAGER: Lalita Laurent RDCS
--- NOTE | 2020-05-26 14:34 | P.CONS ---
History of Present Illness - Reason for Consult Consult date: 05/26/20 COVID - History of Present Illness HISTORY OF PRESENT ILLNESS This is an 89-year-old male patient who presented from [facility] for shortness of breath, cough. He was found to be hypoxic with pulse ox of 80% on room air. Chest x-ray revealed developing pneumonia left lower lobe, patchy infiltrate in the right upper and middle lobe. He has been started on Lovenox, sliding Medrol, supplements. Patient with subsequent started on Remdesivir by pulmonary medicine. Pulse ox is currently 95% on 4 L. Patient has been afebrile since admission. REVIEW OF SYSTEMS Constitutional: No fever, no chills, no night sweats. No weight change. No weakness, fatigue or lethargy. No daytime sleepiness. EENT: No headache. No blurred vision or double vision, no loss of vision. No loss of Hearing, no ringing in the ears, no dizziness. No nasal drainage or congestion. No epistaxis. No sore throat. Lungs: No shortness of breath, cough, no sputum production. No wheezing. Cardiovascular: No chest pain, no lower extremity edema. No palpitations. No paroxysmal nocturnal dyspnea. No orthopnea. No lightheadedness or dizziness. No syncopal episodes. Abdominal: No abdominal pain. No nausea, vomiting. No diarrhea. No constipation. No bloody or tarry stools.. No loss of appetite. Genitourinary: No dysuria, increased frequency, urgency. No urinary retention. Musculoskeletal: No myalgias. No muscle weakness, no gait dysfunction, no frequent falls. No back pain. No neck pain. Integumentary: No wounds, no lesions. No rash or pruritus. No unusual bruising. No change in hair or nails. Neurologic: No aphasia. No facial droop. No change in mentation. No head injury. No headache. No paralysis. No paresthesia. Endocrine: No abnormal blood sugars. No weight change. PHYSICAL EXAMINATION Gen: This is an 89-year-old male. He is resting in bed and appears to be comfortable and in no acute distress. HEENT: Head is atraumatic, normocephalic. Pupils equal, round. Sclerae is anicteric. NECK: Supple. No JVD. No lymphadenopathy. No thyromegaly. LUNGS: Coarse breath sounds bilaterally. No wheezes or rhonchi. No intercostal retractions. HEART: Irregular rate and rhythm. No murmur. ABDOMEN: Soft. Bowel sounds are present. No masses. No tenderness. EXTREMITIES: No pedal edema. No calf tenderness. NEUROLOGICAL: Patient is awake, alert and oriented x3. Cranial nerves 2 through 12 are grossly intact. ASSESSMENT Acute hypoxic respiratory failure secondary to bilateral COVID-19 pneumonia Sepsis secondary to Covid 19 Lactic acidosis secondary to Covid 19 PLAN Continue Remdesivir day #1/5 Continue Lovenox 40 mg subcu every 12 hours, Solu-Medrol 40 mg IV every 8 hours, vitamin C, zinc Continue supplemental oxygen as indicated Prone positioning Incentive spirometry Further condition on clinical course Thank you kindly for this consultation. The above dictated assessment and findings were discussed with Dr. Walker. The impression and plan of care have been directed as dictated. Amy Lancaster nurse practitioner acting as scribe for Dr. Walker. Past Medical History Past Medical History: Cancer, Heart Failure, COPD, Dementia, Hypertension, Memory Impairment, Prostate Disorder, Renal Disease, Thyroid Disorder Additional Past Medical History / Comment(s): Pt admitted to [facility] 05/10/20 and was diagnosed covid + there. He was septic. Exact date unknown. Other hx: Prostate cancer with prostatectomy, urinary incontinence, bilateral lower leg lymphedema/past lower legs cellulitis, PVD, venous insufficiency, past medical hx documents mitral/tricuspid valve disease and thoracic aortic aneurysm but family is uncertain if these were ever diagnosed, UTIs, CKD stage III, bronchitis, skin turns red with vancomycin, hypothyroid, ventral hernia, protein calorie malnutrition, pt now on a pureed/nectar thick liquids. History of Any Multi-Drug Resistant Organisms: None Reported Past Surgical History: Hernia Repair, Prostate Surgery Additional Past Surgical History / Comment(s): Prostatectomy, inguinal hernia repair as a child, R eye cataract removal. Past Anesthesia/Blood Transfusion Reactions: Motion Sickness Smoking Status: Never smoker - Past Family History Father Family Medical History: Myocardial Infarction ([place]) Additional Family Medical History / Comment(s): Father at the age of 80yrs with a [place] Mother Family Medical History: No Reported History Additional Family Medical History / Comment(s): Mother lived to be 100 yrs old. Medications and Allergies Home Medications Medication Instructions Recorded Confirmed Type Levothyroxine Sodium [Synthroid] 150 mcg PO DAILY@0600 02/01/17 12/15/20 History Potassium Chloride [Klor-Con 20] 20 meq PO TID@0800,1200,1700 07/12/16 05/25/20 History Acetaminophen Tab [Tylenol Tab] 650 mg PO Q4H PRN 06/19/19 05/25/20 History Artificial Tears-Hypromellose 2 drops BOTH EYES Q6H PRN 06/19/19 05/25/20 History [Artificial Tear Drops] Furosemide [Lasix] 80 mg PO DAILY 06/19/19 05/25/20 History Ipratropium-Albuterol Nebulize 3 ml INHALATION RT-Q6H PRN 06/19/19 05/25/20 History [Duoneb 0.5 mg-3 mg/3 ml Soln] Loperamide HCl [Imodium A-D] 2 mg PO Q6H PRN 06/19/19 05/25/20 History Magnesium Hydroxide [Milk of 7,200 mg PO DAILY PRN 06/19/19 05/25/20 History Magnesia Concentrate] Na Phos,M-B/Na Phos,Di-Ba [Fleet 133 ml RECTAL DAILY PRN 06/19/19 05/25/20 History Adult] bisacodyL [Dulcolax] 10 mg RECTAL DAILY PRN 06/19/19 05/25/20 History guaiFENesin-DM 100-10MG/5ML 10 ml PO Q4H PRN 06/19/19 05/25/20 History [Robitussin DM] Albuterol Inhaler [Ventolin Hfa 2 puff PO RT-Q4H PRN 05/25/20 05/25/20 History Inhaler] Ascorbic Acid [Vitamin C] 1,000 mg PO DAILY 05/25/20 05/25/20 History Aspirin EC [Ecotrin Low Dose] 81 mg PO DAILY@1700 05/25/20 05/25/20 History Cholecalciferol [Vitamin D3 (25 2,000 unit PO DAILY 05/25/20 05/25/20 History Mcg = 1000 Iu)] Enoxaparin Sodium 40 mg SQ DAILY 05/25/20 05/25/20 History Fluticasone/Vilanterol [Breo 1 puff INHALATION RT-DAILY 05/25/20 05/25/20 History Ellipta 200-25 Mcg INH] Furosemide [Lasix] 40 mg PO DAILY@1400 05/25/20 05/25/20 History INSULIN ASPART (NovoLOG) [NovoLOG See Protocol SQ [facility] 05/25/20 05/25/20 History (formulary)] Liquacal 30 ml PO BID@0800,1700 05/25/20 05/25/20 History Nystatin 100,000 Unit/ml Susp 5 ml PO ACHS 05/25/20 05/25/20 History [Mycostatin Oral Susp] Spironolactone [Aldactone] 25 mg PO DAILY 05/25/20 05/25/20 History Zinc Sulfate 220 mg PO DAILY 05/25/20 05/25/20 History guaiFENesin [Mucinex] 1,200 mg PO BID 05/25/20 05/25/20 History lidocaine HCL [Lidocaine HCl 5 ml MM QID@10,14,19,23 05/25/20 05/25/20 History Viscous] Allergies Allergy/AdvReac Type Severity Reaction Status Date / Time azithromycin [From Zithromax] Allergy Unknown Verified 05/25/20 06:50 Penicillins Allergy Rash/Hives Verified 05/25/20 06:50 strawberry Allergy Rash/Hives Verified 05/25/20 06:50 vancomycin Allergy Rash/Hives Verified 05/25/20 06:50 Physical Exam Vitals: Vital Signs Temp Pulse Resp BP Pulse Ox 05/26/20 11:00 97.5 F L 75 17 110/63 95 05/26/20 05:00 97.3 F L 59 L 18 118/76 96 05/25/20 21:35 97.5 F L 66 18 118/74 97 05/25/20 17:00 97.6 F 66 17 98/64 95 Intake and Output 05/25/20 05/26/20 05/26/20 22:59 06:59 14:59 Intake Total 480 0 Output Total 1010 Balance 480 -1010 Intake: Intake, IV Titration 0 Amount Sodium Chloride 0.9% 1, 0 000 ml @ 130 mls/hr IV . Q7H42M [facility] Rx#:[id number] Oral 480 Output: Urine 1010 Straight 510 Other: Voiding Method Incontinent Incontinent # Voids 0 Results CBC & Chem 7: 05/25/20 05:40 05/25/20 05:40 Labs: Abnormal Lab Results - Last 24 Hours (Table) 05/25/20 05/26/20 Range/Units 05:40 02:01 Troponin I 0.066 H* 0.039 H* (0.000-0.034) ng/mL Microbiology - Last 24 Hours (Table) 05/25/20 05:00 Blood Culture - Preliminary Blood No Growth after 24 hours 05/25/20 04:45 Blood Culture - Preliminary Blood No Growth after 24 hours
[2020-05-26] MEDS: FUROSEMIDE 40 MG TAB PO SCH (15:14)
[2020-05-26] MEDS: ASPIRIN 81 MG PO SCH (17:03)
[2020-05-26] MEDS: BENZOCAINE/MENTHOL LOZENG 1 EACH LOZENGE MUCOUS MEM SCH ×2 (17:04→21:58)
[2020-05-27] MEDS: methylPREDNISolone SOD SUCCI 40 MG/ML 1 ML VIAL IV SCH ×3 (00:40→16:50)
[2020-05-27] MEDS: BENZOCAINE/MENTHOL LOZENG 1 EACH LOZENGE MUCOUS MEM SCH ×7 (00:41→20:38)
[2020-05-27] MEDS: SODIUM CHLORIDE 0.9% 1,000 ML IV SCH ×4 (00:41→23:17)
[2020-05-27] MEDS: LIDOCAINE VISCOUS 2% 15 ML CUP MUCOUS MEM SCH ×4 (00:41→20:39)
[2020-05-27] MEDS: LEVOTHYROXINE 75 MCG TAB PO SCH (05:42)
[2020-05-27 06:42] LABS: Basophils # (A) 0.1 k/uL (0-0.2); Basophils % (A) 1 %; Eosinophils % (A) 0 %; HCT 41.7 % (39.0-53.0); HGB 13.9 gm/dL (13.0-17.5); Lymphocytes # (A) 1.1 k/uL (1.0-4.8); Lymphocytes % (A) 15 %; MCH 33.1 pg (25.0-35.0); MCHC 33.3 g/dL (31.0-37.0); MCV 99.4 fL (80.0-100.0); Macrocytosis Slight; Mean Platelet Volume 6.8; Monocytes # (A) 0.3 k/uL (0-1.0); Monocytes % (A) 5 %; Neutrophils # (A) 5.7 k/uL (1.3-7.7); Neutrophils % (A) 79 %; Platelet Count 175 k/uL (150-450); RDW 14.2 % (11.5-15.5); WBC 7.2 k/uL (3.8-10.6)
[2020-05-27] MEDS: ALBUTEROL HFA INHALER INHALATION PRN ×3 (08:25→18:57)
[2020-05-27] MEDS: SYMBICORT 160-4.5 MCG INHALER INHALATION SCH ×2 (08:25→18:57)
[2020-05-27] MEDS: POTASSIUM CHLORIDE ER 20 MEQ TAB.ER PO SCH ×3 (10:18→16:50)
[2020-05-27] MEDS: ZINC SULFATE 220 MG CAP PO SCH (10:18)
[2020-05-27] MEDS: guaiFENesin 600 MG TABLET.ER PO SCH ×2 (10:18→20:40)
[2020-05-27] MEDS: CHOLECALCIFEROL 1,000 UNIT TAB PO SCH (10:18)
[2020-05-27] MEDS: NYSTATIN 100,000 UNIT/ML SUSP 500,000 UNIT/5 ML CUP PO SCH ×4 (10:19→20:40)
[2020-05-27] MEDS: REMDESIVIR 100 MG in SODIUM CHLORIDE 0.9% 250 ML IVPB SCH (10:19)
[2020-05-27] MEDS: ENOXAPARIN 40 MG/0.4 ML SYRINGE SQ SCH ×2 (10:19→20:40)
[2020-05-27 10:47] LABS: Albumin 2.5 g/dL (3.80-4.90); Albumin/Globulin Ratio 1.19 (1.60-3.17); Calcium 7.9 mg/dL (8.7-10.3); Globulin 2.1 g/dL (1.6-3.3); Non-African American GFR(CKD) 66.4 (60.0-200.0); Potassium 3.9 mmol/L (3.5-5.5); Total Bilirubin 0.9 mg/dL (0.2-1.2); Total Protein 4.6 g/dL (6.2-8.2)
--- NOTE | 2020-05-27 11:16 | P.PN ---
Subjective Progress Note Date: 05/27/20 HISTORY OF PRESENT ILLNESS This is an 89-year-old male patient who presented from [facility] for shortn ess of breath, cough. He was found to be hypoxic with pulse ox of 80% on room air. Chest x-ray revealed developing pneumonia left lower lobe, patchy infiltrate in the right upper and middle lobe. He has been started on Lovenox, sliding Medrol, supplements. Patient with subsequent started on Remdesivir by pulmonary medicine. Pulse ox is currently 95% on 4 L. Patient has been afebrile since admission. 05/27: Patient is seen today in follow-up on the [facility] floor. He is complaining of dry mouth. He denies shortness of breath. He continues to have a cough. No chest pain. He does not feel much improvement from yesterday. He has been afebrile. Pulse ox 94% on 4 L nasal cannula. PHYSICAL EXAMINATION Gen: This is an 89-year-old male. He is resting in bed and appears to be comfortable and in no acute distress. HEENT: Head is atraumatic, normocephalic. Pupils equal, round. Sclerae is anicteric. NECK: Supple. No JVD. No lymphadenopathy. No thyromegaly. LUNGS: Coarse breath sounds bilaterally. No wheezes or rhonchi. No intercostal retractions. HEART: Irregular rate and rhythm. No murmur. ABDOMEN: Soft. Bowel sounds are present. No masses. No tenderness. EXTREMITIES: No pedal edema. No calf tenderness. NEUROLOGICAL: Patient is awake, alert and oriented x3. Cranial nerves 2 through 12 are grossly intact. ASSESSMENT Acute hypoxic respiratory failure secondary to bilateral COVID-19 pneumonia Sepsis secondary to Covid 19 Lactic acidosis secondary to Covid 19 PLAN Continue Remdesivir day #2/5 Continue Lovenox 40 mg subcu every 12 hours, Solu-Medrol 40 mg IV every 8 hours, vitamin C, zinc Continue supplemental oxygen as indicated Prone positioning Incentive spirometry Further condition on clinical course Thank you kindly for this consultation. The above dictated assessment and findings were discussed with Dr. Walker. The impression and plan of care have been directed as dictated. Amy Lancaster nurse practitioner acting as scribe for Dr. Walker. Objective - Vital Signs Vital signs: Vital Signs Temp 97.5 F L 05/27/20 05:00 Pulse 63 12/17/20 05:00 Resp 19 05/27/20 05:00 BP 140/84 05/27/20 05:00 Pulse Ox 94 L 05/27/20 05:00 Intake & Output 05/26/20 05/27/20 05/27/20 18:59 06:59 18:59 Intake Total 250 Balance 250 Weight 131.542 kg Intake: Intake, IV Titration 250 Amount Remdesivir 200 mg In 250 Sodium Chloride 0.9% 250 ml @ 250 mls/hr IVPB ONCE ONE Rx#:[id number] Other: Voiding Method Incontinent Incontinent # Voids 2 2 # Bowel Movements 1 - Labs CBC & Chem 7: 05/27/20 06:15 05/27/20 06:15 Labs: Abnormal Lab Results - Last 24 Hours (Table) 05/27/20 Range/Units 06:15 RBC 4.20 L (4.30-5.90) m/uL Microbiology - Last 24 Hours (Table) 05/25/20 05:00 Blood Culture - Preliminary Blood No Growth after 48 hours 05/25/20 04:45 Blood Culture - Preliminary Blood No Growth after 48 hours
--- NOTE | 2020-05-27 12:39 | P.PN ---
Subjective Progress Note Date: 05/27/20 Principal diagnosis: Acute hypoxic respiratory failure Bilateral covid 19 pneumonia Sepsis due to above Atrial fibrillation with controlled ventricular response Elevated tropes Intravascular volume depletion and dehydration Metabolic alkalosis/contraction alkalosis Elevated lactic acid Bilateral lower extremity lymphedema Prostate cancer 05/27/2020, patient seen and evaluated examined during the rounds labs reviewed medications reviewed care plan discussed, patient still congested, intermittent cough is present, appears wet but however no expectorant is present, we'll continue IV steroids put patient on doxycycline as well send sputum for culture This is a 89-year-old male with complex past medical history resident of [facility] [place] he was noted to be more short of breath coughing sent emergency department for further evaluation his past medical history significant for congestive heart failure, hypothyroidism, COPD, prostate cancer, history of the lower extremity edema, hypertension hypertensive cardiovascular disease, on arrival he was afebrile but however tachypneic with significant hypoxia his oxygen saturation is 80% on room air, blood pressure is marginal, chemistry Sr. of metabolic contraction alkalosis, lactic acid is high at 3.4, his EKG sister of atrial fibrillation with controlled ventricular response, QTC is mildly elevated for 460, drops are elevated, chest x-ray revealed developing pneumonia and left lower lobe, also patchy infiltrate identified in right upper and middle lobe, he has covert 19 pneumonia, currently is being treated with Lovenox, Solu- Medrol and continuation of his home medications, Objective - Vital Signs Vital signs: Vital Signs Temp 98.3 F 05/27/20 11:00 Pulse 58 L 05/27/20 11:00 Resp 18 05/27/20 11:00 BP 110/59 05/27/20 11:00 Pulse Ox 96 05/27/20 11:00 Intake & Output 05/26/20 05/27/20 05/27/20 18:59 06:59 18:59 Intake Total 250 Balance 250 Weight 131.542 kg Intake: Intake, IV Titration 250 Amount Remdesivir 200 mg In 250 Sodium Chloride 0.9% 250 ml @ 250 mls/hr IVPB ONCE ONE Rx#:[id number] Other: Voiding Method Incontinent Incontinent # Voids 2 2 # Bowel Movements 1 - Exam - Constitutional General appearance: average body habitus, cooperative, disheveled - EENT Eyes: PERRLA Ears: bilateral: normal - Neck Neck: normal ROM Carotids: bilateral: upstroke normal - Respiratory Respiratory: bilateral: diminished - Cardiovascular Rhythm: irregularly irregular Heart sounds: normal: S1, S2 - Gastrointestinal General gastrointestinal: normal bowel sounds, soft - Integumentary Integumentary: normal turgor - Musculoskeletal Musculoskeletal: generalized weakness, strength equal bilaterally - Labs CBC & Chem 7: 05/27/20 06:15 05/27/20 06:15 Labs: Abnormal Lab Results - Last 24 Hours (Table) 05/27/20 05/27/20 Range/Units 06:15 06:15 RBC 4.20 L (4.30-5.90) m/uL Chloride 110 H (96-109) mmol/L BUN 36.0 H (9.0-27.0) mg/dL BUN/Creatinine Ratio 36.00 H (12.00-20.00) Ratio Glucose 144 H (70-110) mg/dL Calcium 7.9 L (8.7-10.3) mg/dL Total Protein 4.6 L (6.2-8.2) g/dL Albumin 2.50 L (3.80-4.90) g/dL Albumin/Globulin Ratio 1.19 L (1.60-3.17) g/dL Microbiology - Last 24 Hours (Table) 05/25/20 05:00 Blood Culture - Preliminary Blood No Growth after 48 hours 05/25/20 04:45 Blood Culture - Preliminary Blood No Growth after 48 hours Assessment and Plan Assessment: Acute hypoxic respiratory failure Bilateral covid 19 pneumonia Sepsis due to above Atrial fibrillation with controlled ventricular response Elevated tropes Intravascular volume depletion and dehydration Metabolic alkalosis/contraction alkalosis Elevated lactic acid Bilateral lower extremity lymphedema Prostate cancer Plan: IV steroids Deep breathing exercises incentive spirometry Supplemental oxygen Prone positioning Lovenox 40 mg subcu every 12 IV Remdesivir for 5 days Gentle rehydration Awaiting further evaluation by cardiovascular services were elevated troponins Time with Patient: Greater than 30
[2020-05-27] MEDS: DOXYCYCLINE 100 MG CAP PO SCH ×2 (13:12→20:39)
[2020-05-27] MEDS: FUROSEMIDE 40 MG TAB PO SCH (13:12)
[2020-05-27] MEDS: ASPIRIN 81 MG PO SCH (16:50)
[2020-05-28] MEDS: LIDOCAINE VISCOUS 2% 15 ML CUP MUCOUS MEM SCH ×4 (00:54→21:24)
[2020-05-28] MEDS: methylPREDNISolone SOD SUCCI 40 MG/ML 1 ML VIAL IV SCH ×3 (00:54→16:48)
[2020-05-28] MEDS: BENZOCAINE/MENTHOL LOZENG 1 EACH LOZENGE MUCOUS MEM SCH ×6 (01:20→20:52)
[2020-05-28] MEDS: SODIUM CHLORIDE 0.9% 1,000 ML IV SCH ×2 (05:02→12:10)
[2020-05-28] MEDS: LEVOTHYROXINE 75 MCG TAB PO SCH (05:30)
[2020-05-28] MEDS: ALBUTEROL HFA INHALER INHALATION PRN ×4 (08:37→20:04)
[2020-05-28] MEDS: SYMBICORT 160-4.5 MCG INHALER INHALATION SCH ×2 (08:37→20:04)
[2020-05-28] MEDS: guaiFENesin 600 MG TABLET.ER PO SCH ×2 (09:47→21:24)
[2020-05-28] MEDS: DOXYCYCLINE 100 MG CAP PO SCH ×2 (09:48→21:23)
[2020-05-28] MEDS: ZINC SULFATE 220 MG CAP PO SCH (09:48)
[2020-05-28] MEDS: NYSTATIN 100,000 UNIT/ML SUSP 500,000 UNIT/5 ML CUP PO SCH ×4 (09:49→21:24)
[2020-05-28] MEDS: POTASSIUM CHLORIDE ER 20 MEQ TAB.ER PO SCH ×3 (09:50→16:48)
[2020-05-28] MEDS: ENOXAPARIN 40 MG/0.4 ML SYRINGE SQ SCH ×2 (09:50→21:48)
[2020-05-28] MEDS: REMDESIVIR 100 MG in SODIUM CHLORIDE 0.9% 250 ML IVPB SCH (09:50)
[2020-05-28] MEDS: CHOLECALCIFEROL 1,000 UNIT TAB PO SCH (09:54)
--- NOTE | 2020-05-28 10:23 | P.PN ---
Subjective Progress Note Date: 05/28/20 Principal diagnosis: Acute hypoxic respiratory failure Bilateral covid 19 pneumonia Sepsis due to above Atrial fibrillation with controlled ventricular response Elevated tropes Intravascular volume depletion and dehydration Metabolic alkalosis/contraction alkalosis Elevated lactic acid Bilateral lower extremity lymphedema Prostate cancer 05/28/2020, patient seen eval examined during rounds labs reviewed medications reviewed, more awake and alert, swelling in the lower extremity and lymphedema slightly better now patient has refused physical therapy today, patient remains on active viral therapy for covert 19 pneumonia 05/27/2020, patient seen and evaluated examined during the rounds labs reviewed medications reviewed care plan discussed, patient still congested, intermittent cough is present, appears wet but however no expectorant is present, we'll continue IV steroids put patient on doxycycline as well send sputum for culture This is a 89-year-old male with complex past medical history resident of [facility] he was noted to be more short of breath coughing sent emergency department for further evaluation his past medical history significant for congestive heart failure, hypothyroidism, COPD, prostate cancer, history of the lower extremity edema, hypertension hypertensive cardiovascular disease, on arrival he was afebrile but however tachypneic with significant hypoxia his oxygen saturation is 80% on room air, blood pressure is marginal, chemistry Sr. of metabolic contraction alkalosis, lactic acid is high at 3.4, his EKG sister o f atrial fibrillation with controlled ventricular response, QTC is mildly elevated for 460, drops are elevated, chest x-ray revealed developing pneumonia and left lower lobe, also patchy infiltrate identified in right upper and middle lobe, he has covert 19 pneumonia, currently is being treated with Lovenox, Solu- Medrol and continuation of his home medications, Objective - Vital Signs Vital signs: Vital Signs Temp 97.8 F 05/28/20 05:00 Pulse 68 05/28/20 05:00 Resp 20 05/28/20 05:00 BP 123/72 05/28/20 05:00 Pulse Ox 94 L 05/28/20 05:00 Intake & Output 05/27/20 05/28/20 05/28/20 18:59 06:59 18:59 Intake Total 1900 900 Output Total 250 Balance 1900 650 Intake: Intake, IV Titration 100 Amount Remdesivir 100 mg In 100 Sodium Chloride 0.9% 250 ml @ 250 mls/hr IVPB DAILY [facility] Rx#:[id number] Oral 1800 900 Output: Urine 250 Other: Voiding Method Incontinent # Voids 3 2 3 # Bowel Movements 1 1 - Exam - Constitutional General appearance: average body habitus, cooperative, disheveled - EENT Eyes: PERRLA Ears: bilateral: normal - Neck Neck: normal ROM Carotids: bilateral: upstroke normal - Respiratory Respiratory: bilateral: diminished - Cardiovascular Rhythm: irregularly irregular Heart sounds: normal: S1, S2 - Gastrointestinal General gastrointestinal: normal bowel sounds, soft - Integumentary Integumentary: normal turgor - Musculoskeletal Musculoskeletal: generalized weakness, strength equal bilaterally - Labs CBC & Chem 7: 05/27/20 06:15 05/27/20 06:15 Labs: Abnormal Lab Results - Last 24 Hours (Table) 05/27/20 Range/Units 06:15 Chloride 110 H (96-109) mmol/L BUN 36.0 H (9.0-27.0) mg/dL BUN/Creatinine Ratio 36.00 H (12.00-20.00) Ratio Glucose 144 H (70-110) mg/dL Calcium 7.9 L (8.7-10.3) mg/dL Total Protein 4.6 L (6.2-8.2) g/dL Albumin 2.50 L (3.80-4.90) g/dL Albumin/Globulin Ratio 1.19 L (1.60-3.17) g/dL Microbiology - Last 24 Hours (Table) 05/25/20 04:45 Blood Culture - Preliminary Blood No Growth after 72 hours 05/25/20 05:00 Blood Culture - Preliminary Blood No Growth after 72 hours Assessment and Plan Assessment: Acute hypoxic respiratory failure Bilateral covid 19 pneumonia Sepsis due to above Atrial fibrillation with controlled ventricular response Elevated tropes Intravascular volume depletion and dehydration Metabolic alkalosis/contraction alkalosis Elevated lactic acid Bilateral lower extremity lymphedema Prostate cancer Plan: IV steroids Deep breathing exercises incentive spirometry Supplemental oxygen Prone positioning Lovenox 40 mg subcu every 12 IV Remdesivir for 5 days Time with Patient: Greater than 30
[2020-05-28] MEDS: FUROSEMIDE 40 MG TAB PO SCH (13:29)
[2020-05-28] MEDS: ASPIRIN 81 MG PO SCH (16:48)
--- NOTE | 2020-05-28 19:05 | PN ---
PROGRESS NOTE 89-year-old white male with COVID pneumonia. The patient is getting better from medical standpoint. He has acute hypoxemic respiratory failure medical with pneumonia, sepsis secondary to above, atrial fibrillation with controlled ventricular response, dehydration, metabolic alkalosis, contraction alkalosis, lower extremity lymphedema, prostate cancer. He is slightly better. He is getting PT. He is being treated with medications as mentioned above. Lungs are scattered rhonchi and wheeze. Cardiovascular S1, S2. GI soft. Integument no rashes, excoriation, bruising. White count 7.2, hemoglobin 12.9, platelets 175. ASSESSMENT: 1. Acute hypoxemic respiratory failure. 2. Bilateral Covid 19 pneumonia. 3. Sepsis secondary to above. 4. Atrial fibrillation. 5. Elevated troponins. 6. Intravascular volume depletion. 7. Metabolic alkalosis. 8. Elevated lactic acid. 9. Bilateral lymphedema. 10.Prostate cancer. Lasix was decreased on admission due to severe dehydration from his lymphedema status. IV steroids, oxygen. Prone positioning, Lovenox subcu. IV Remdesivir for 5 days and discharge home after that. Dr. Walker and Dr. Orozco has seen the patient. MMODL / IJN: [id number] /
--- NOTE | 2020-05-29 00:36 | PN ---
PROGRESS NOTE DATE OF SERVICE: 05/28/2020 REASON FOR FOLLOWUP: COVID-19 pneumonia. INTERVAL HISTORY: Patient is currently afebrile. The patient is breathing comfortably. He did have a congested cough, not a good historian. No vomiting, diarrhea, or any other changes reported by the nursing staff. PHYSICAL EXAMINATION: Blood pressure 111/74, pulse of 74, temperature 99. He is 92% on 4 L nasal cannula. General description: The patient is an elderly male lying in bed in no distress. RESPIRATORY: Unlabored breathing. Coarse breath sounds in the bases. No wheeze. HEART: S1, S2. Regular rate and rhythm. ABDOMEN: Soft, no tenderness. LABS: Hemoglobin 13.8, white count 7.2, BUN of 36, creatinine 1.0. DIAGNOSTIC IMPRESSION AND PLAN: Patient with acute COVID-19 infection. Patient is currently covered with Remdesivir, Lovenox and Solu Medrol to continue along with respiratory support and monitor clinical course closely. MMODL / IJN: [id number] /
[2020-05-29] MEDS: LIDOCAINE VISCOUS 2% 15 ML CUP MUCOUS MEM SCH ×4 (01:13→22:12)
[2020-05-29] MEDS: BENZOCAINE/MENTHOL LOZENG 1 EACH LOZENGE MUCOUS MEM SCH ×6 (01:13→22:36)
[2020-05-29] MEDS: SODIUM CHLORIDE 0.9% 1,000 ML IV SCH ×4 (01:15→22:36)
[2020-05-29] MEDS: methylPREDNISolone SOD SUCCI 40 MG/ML 1 ML VIAL IV SCH ×3 (01:23→16:23)
[2020-05-29] MEDS: ALBUTEROL HFA INHALER INHALATION PRN ×3 (04:53→20:39)
[2020-05-29] MEDS: LEVOTHYROXINE 75 MCG TAB PO SCH (05:43)
[2020-05-29] MEDS: NYSTATIN 100,000 UNIT/ML SUSP 500,000 UNIT/5 ML CUP PO SCH ×4 (08:28→22:37)
[2020-05-29] MEDS: ENOXAPARIN 40 MG/0.4 ML SYRINGE SQ SCH ×2 (08:28→22:12)
[2020-05-29] MEDS: REMDESIVIR 100 MG in SODIUM CHLORIDE 0.9% 250 ML IVPB SCH (08:28)
[2020-05-29] MEDS: guaiFENesin 600 MG TABLET.ER PO SCH ×2 (08:58→22:12)
[2020-05-29] MEDS: SYMBICORT 160-4.5 MCG INHALER INHALATION SCH ×2 (09:05→20:39)
[2020-05-29] MEDS: ZINC SULFATE 220 MG CAP PO SCH (09:49)
[2020-05-29] MEDS: POTASSIUM BICARBONATE/CIT AC 20 MEQ TABLET.EFF PO SCH ×3 (09:49→22:14)
[2020-05-29] MEDS: CHOLECALCIFEROL 1,000 UNIT TAB PO SCH (09:49)
[2020-05-29] MEDS: DOXYCYCLINE 100 MG CAP PO SCH ×2 (09:49→22:12)
[2020-05-29] MEDS: POTASSIUM CHLORIDE ER 20 MEQ TAB.ER PO SCH (10:58)
[2020-05-29] MEDS: FUROSEMIDE 40 MG TAB PO SCH (16:24)
[2020-05-29] MEDS: ASPIRIN 81 MG PO SCH (16:24)
[2020-05-29 17:35] LABS: Glucose,Whole Blood 198 mg/dL (75-99)
[2020-05-29 20:34] LABS: Glucose,Whole Blood 136 mg/dL (75-99)
--- NOTE | 2020-05-29 21:08 | P.PN ---
Subjective Progress Note Date: 05/29/20 Principal diagnosis: Acute hypoxic respiratory failure Bilateral covid 19 pneumonia Sepsis due to above Atrial fibrillation with controlled ventricular response Elevated tropes Intravascular volume depletion and dehydration Metabolic alkalosis/contraction alkalosis Elevated lactic acid Bilateral lower extremity lymphedema Prostate cancer 05/29/2020, patient seen eval examined during the rounds labs reviewed medications reviewed, shortness of breath is slightly better swelling the lower extremity stable with stable lymphedema, patient remains afebrile with stable h emodynamics oxygen saturation 5 L 96% however, patient remains on therapy 05/28/2020, patient seen eval examined during rounds labs reviewed medications reviewed, more awake and alert, swelling in the lower extremity and lymphedema slightly better now patient has refused physical therapy today, patient remains on active viral therapy for covert 19 pneumonia 05/27/2020, patient seen and evaluated examined during the rounds labs reviewed medications reviewed care plan discussed, patient still congested, intermittent cough is present, appears wet but however no expectorant is present, we'll con tinue IV steroids put patient on doxycycline as well send sputum for culture This is a 89-year-old male with complex past medical history resident of [facility] he was noted to be more short of breath coughing sent emergency department for further evaluation his past medical history significant for congestive heart failure, hypothyroidism, COPD, prostate cancer, history of the lower extremity edema, hypertension hypertensive cardiovascular disease, on arrival he was afebrile but however tachypneic with significant hypoxia his oxygen saturation is 80% on room air, blood pressure is marginal, chemistry Sr. of metabolic contraction alkalosis, lactic acid is high at 3.4, his EKG sister of atrial fibrillation with controlled ventricular response, QTC is mildly elevated for 460, drops are elevated, chest x-ray revealed developing pneumonia and left lower lobe, also patchy infiltrate identified in right upper and middle lobe, he has covert 19 pneumonia, currently is being treated with Lovenox, Solu- Medrol and continuation of his home medications, Objective - Vital Signs Vital signs: Vital Signs Temp 97.4 F L 05/29/20 21:00 Pulse 54 L 05/29/20 21:00 Resp 18 05/29/20 21:00 BP 143/88 05/29/20 21:00 Pulse Ox 96 05/29/20 21:00 Intake & Output 05/29/20 05/29/20 05/30/20 06:59 18:59 06:59 Intake Total 375 Balance 375 Intake: Oral 375 Other: Voiding Method Incontinent Incontinent # Voids 1 2 # Bowel Movements 1 - Exam - Constitutional General appearance: average body habitus, cooperative, disheveled - EENT Eyes: PERRLA Ears: bilateral: normal - Neck Neck: normal ROM Carotids: bilateral: upstroke normal - Respiratory Respiratory: bilateral: diminished - Cardiovascular Rhythm: irregularly irregular Heart sounds: normal: S1, S2 - Gastrointestinal General gastrointestinal: normal bowel sounds, soft - Integumentary Integumentary: normal turgor - Musculoskeletal Musculoskeletal: generalized weakness, strength equal bilaterally - Labs CBC & Chem 7: 05/27/20 06:15 05/27/20 06:15 Labs: Abnormal Lab Results - Last 24 Hours (Table) 05/29/20 05/29/20 Range/Units 17:34 20:32 POC Glucose (mg/dL) 198 H 136 H (75-99) mg/dL Microbiology - Last 24 Hours (Table) 05/25/20 05:00 Blood Culture - Preliminary Blood No Growth after 96 hours 05/25/20 04:45 Blood Culture - Preliminary Blood No Growth after 96 hours Assessment and Plan Assessment: Acute hypoxic respiratory failure Bilateral covid 19 pneumonia Sepsis due to above Atrial fibrillation with controlled ventricular response Elevated tropes Intravascular volume depletion and dehydration Metabolic alkalosis/contraction alkalosis Elevated lactic acid Bilateral lower extremity lymphedema Prostate cancer Plan: IV steroids Deep breathing exercises incentive spirometry Supplemental oxygen Prone positioning Lovenox 40 mg subcu every 12 IV Remdesivir for 5 days Would titrate oxygen down as tolerated keeping saturation over 92% and above Time with Patient: Greater than 30
--- NOTE | 2020-05-29 22:35 | PN ---
PROGRESS NOTE DATE OF SERVICE: 05/29/2020 REASON FOR FOLLOWUP: COVID-19 pneumonia. INTERVAL HISTORY: Patient is currently afebrile. The patient is breathing more comfortably. Patient denies having any chest pain. Occasional cough. No abdominal pain or diarrhea. PHYSICAL EXAMINATION: Blood pressure 143/88 with pulse of 54, temperature 97.4. He is 93% on 5 L nasal cannula. General description is an elderly male lying in bed in no distress. Respiratory system: Unlabored breathing, decreased intensity of breath sounds. No wheeze. HEART: S1, S2. Regular rate and rhythm. Abdomen soft, no tenderness. LAB: Hemoglobin 13.9, white count 7.2, BUN of 36, creatinine 1.0. Blood culture has been negative. DIAGNOSTIC IMPRESSION AND PLAN: Patient with acute COVID-19 pneumonia in this patient currently covered with Lovenox, Solu-Medrol, Remdesivir, and Zinc, to continue along with respiratory support. Monitor clinical course closely. MMODL / IJN: [id number] /
[2020-05-30] MEDS: methylPREDNISolone SOD SUCCI 40 MG/ML 1 ML VIAL IV SCH ×4 (00:23→19:35)
[2020-05-30] MEDS: LIDOCAINE VISCOUS 2% 15 ML CUP MUCOUS MEM SCH ×4 (00:23→19:35)
[2020-05-30] MEDS: BENZOCAINE/MENTHOL LOZENG 1 EACH LOZENGE MUCOUS MEM SCH ×5 (01:46→15:43)
[2020-05-30] MEDS: SODIUM CHLORIDE 0.9% 1,000 ML IV SCH ×3 (04:07→17:57)
[2020-05-30] MEDS: LEVOTHYROXINE 75 MCG TAB PO SCH (05:26)
--- NOTE | 2020-05-30 05:59 | PN ---
PROGRESS NOTE An 89-year-old white male with dehydration, lactic acidosis improving, positive COVID pneumonia on day 3 of remdesivir. He will finish up day 5 of remdesivir and then [facility]. Cardiovascular S1, S2. LUNGS: Transmitted upper breath sounds. Generalized weakness. Hematology negative Homans. NEUROLOGIC: Alert and oriented x3. Cranial nerves are intact. ASSESSMENT: 1. Dehydration. 2. Lactic acidosis. 3. COVID positivity. 4. Chronic obstructive pulmonary disease. 5. Lymphedema. 6. Diagnostic congestive heart failure .. Continue COVID protocol and zinc, steroids, antibiotics. Prognosis guarded. MMODL / IJN: [id number] /
[2020-05-30 07:08] LABS: Glucose,Whole Blood 172 mg/dL (75-99)
[2020-05-30] MEDS: SYMBICORT 160-4.5 MCG INHALER INHALATION SCH ×2 (08:19→20:39)
[2020-05-30 09:16] LABS: Basophils % (A) 0 %; Eosinophils % (A) 1 %; HCT 46.2 % (39.0-53.0); HGB 15.4 gm/dL (13.0-17.5); Lymphocytes # (A) 0.8 k/uL (1.0-4.8); Lymphocytes % (A) 14 %; MCH 32.1 pg (25.0-35.0); MCHC 33.3 g/dL (31.0-37.0); MCV 96.4 fL (80.0-100.0); Mean Platelet Volume 6.9; Monocytes # (A) 0.3 k/uL (0-1.0); Monocytes % (A) 6 %; Neutrophils # (A) 4.5 k/uL (1.3-7.7); Neutrophils % (A) 78 %; Platelet Count 143 k/uL (150-450); RBC 4.79 m/uL (4.30-5.90); RDW 14.6 % (11.5-15.5); WBC 5.7 k/uL (3.8-10.6)
[2020-05-30 09:26] LABS: ALT 34 U/L (4-49); AST 35 U/L (17-59); African American GFR (CKD) >90 (>60 ml/min/1.73 sqM); Albumin 2.3 g/dL (3.5-5.0); Albumin/Globulin Ratio 0.8; Alkaline Phosphatase 55 U/L (38-126); Anion Gap -1 mmol/L; Blood Urea Nitrogen 36 mg/dL (9-20); Calcium 7.8 mg/dL (8.4-10.2); Carbon Dioxide 30 mmol/L (22-30); Chloride 109 mmol/L (98-107); Globulin 2.8 g/dL; Glucose 98 mg/dL (74-99); Non-African American GFR(CKD) 78 (>60 ml/min/1.73 sqM); Sodium 138 mmol/L (137-145); Total Bilirubin 1.2 mg/dL (0.2-1.3); Total Protein 5.1 g/dL (6.3-8.2)
[2020-05-30] MEDS: ENOXAPARIN 40 MG/0.4 ML SYRINGE SQ SCH ×2 (09:31→19:35)
[2020-05-30] MEDS: REMDESIVIR 100 MG in SODIUM CHLORIDE 0.9% 250 ML IVPB SCH (09:31)
[2020-05-30] MEDS: DOXYCYCLINE 100 MG CAP PO SCH ×2 (09:32→19:36)
[2020-05-30] MEDS: NYSTATIN 100,000 UNIT/ML SUSP 500,000 UNIT/5 ML CUP PO SCH ×4 (09:32→19:36)
[2020-05-30] MEDS: ZINC SULFATE 220 MG CAP PO SCH (09:32)
[2020-05-30] MEDS: CHOLECALCIFEROL 1,000 UNIT TAB PO SCH (09:32)
[2020-05-30] MEDS: POTASSIUM BICARBONATE/CIT AC 20 MEQ TABLET.EFF PO SCH ×3 (09:32→19:36)
[2020-05-30 11:09] LABS: Glucose,Whole Blood 122 mg/dL (75-99)
[2020-05-30] MEDS: guaiFENesin 600 MG TABLET.ER PO SCH ×2 (11:18→19:35)
[2020-05-30] MEDS: ALBUTEROL HFA INHALER INHALATION PRN ×2 (11:56→20:39)
[2020-05-30] MEDS: FUROSEMIDE 40 MG TAB PO SCH (15:43)
[2020-05-30 17:09] LABS: Glucose,Whole Blood 123 mg/dL (75-99)
[2020-05-30] MEDS: ASPIRIN 81 MG PO SCH (17:57)
[2020-05-30 21:24] LABS: Glucose,Whole Blood 183 mg/dL (75-99)
--- NOTE | 2020-05-30 23:29 | P.PN ---
Subjective Progress Note Date: 05/30/20 Principal diagnosis: Acute hypoxic respiratory failure Bilateral covid 19 pneumonia Sepsis due to above Atrial fibrillation with controlled ventricular response Elevated tropes Intravascular volume depletion and dehydration Metabolic alkalosis/contraction alkalosis Elevated lactic acid Bilateral lower extremity lymphedema Prostate cancer 05/30/2020, patient seen eval examined during the rounds, shortness of breath has stable, and lymphedema of the lower extremity remains stable, patient afebrile on 5 L oxygen saturation is 94%, blood cultures 2 negative 05/29/2020, patient seen eval examined during the rounds labs reviewed medications reviewed, shortness of breath is slightly better swelling the lower extremity stable with stable lymphedema, patient remains afebrile with stable hemodynamics oxygen saturation 5 L 96% however, patient remains on therapy 05/28/2020, patient seen eval examined during rounds labs reviewed medications reviewed, more awake and alert, swelling in the lower extremity and lymphedema slightly better now patient has refused physical therapy today, patient remains on active viral therapy for covert 19 pneumonia 05/27/2020, patient seen and evaluated examined during the rounds labs reviewed medications reviewed care plan discussed, patient still congested, intermittent cough is present, appears wet but however no expectorant is present, we'll continue IV steroids put patient on doxycycline as well send sputum for culture This is a 89-year-old male with complex past medical history resident of [facility] facility he was noted to be more short of breath coughing sent emergency department for further evaluation his past medical history significant for congestive heart failure, hypothyroidism, COPD, prostate cancer, history of the lower extremity edema, hypertension hypertensive cardiovascular disease, on arrival he was afebrile but however tachypneic with significant hypoxia his oxygen saturation is 80% on room air, blood pressure is marginal, chemistry Sr. of metabolic contraction alkalosis, lactic acid is high at 3.4, his EKG sister of atrial fibrillation with controlled ventricular response, QTC is mildly elevated for 460, drops are elevated, chest x-ray revealed developing pneumonia and left lower lobe, also patchy infiltrate identified in right upper and middle lobe, he has covert 19 pneumonia, currently is being treated with Lovenox, Solu- Medrol and continuation of his home medications, Objective - Vital Signs Vital signs: Vital Signs Temp 97.3 F L 05/30/20 22:29 Pulse 68 05/30/20 22:29 Resp 18 05/30/20 22:29 BP 115/76 05/30/20 22:29 Pulse Ox 94 L 05/30/20 22:29 Intake & Output 05/30/20 05/30/20 05/31/20 06:59 18:59 06:59 Intake Total 50 300 Output Total 250 Balance -200 300 Weight 131.542 kg Intake: Intake, IV Titration 250 Amount Remdesivir 100 mg In 250 Sodium Chloride 0.9% 250 ml @ 250 mls/hr IVPB DAILY [facility] Rx#:[id number] Oral 50 50 Output: Urine 250 Other: Voiding Method Incontinent Incontinent Incontinent # Voids 1 2 # Bowel Movements 1 - Exam - Constitutional General appearance: average body habitus, cooperative, disheveled - EENT Eyes: PERRLA Ears: bilateral: normal - Neck Neck: normal ROM Carotids: bilateral: upstroke normal - Respiratory Respiratory: bilateral: diminished - Cardiovascular Rhythm: irregularly irregular Heart sounds: normal: S1, S2 - Gastrointestinal General gastrointestinal: normal bowel sounds, soft - Integumentary Integumentary: normal turgor - Musculoskeletal Musculoskeletal: generalized weakness, strength equal bilaterally - Labs CBC & Chem 7: 05/30/20 08:57 05/30/20 08:57 Labs: Abnormal Lab Results - Last 24 Hours (Table) 05/30/20 05/30/20 05/30/20 Range/Units 07:07 08:57 08:57 Plt Count 143 L (150-450) k/uL Lymphocytes # 0.8 L (1.0-4.8) k/uL Chloride 109 H (98-107) mmol/L BUN 36 H (9-20) mg/dL POC Glucose (mg/dL) 172 H (75-99) mg/dL Calcium 7.8 L (8.4-10.2) mg/dL Total Protein 5.1 L (6.3-8.2) g/dL Albumin 2.3 L (3.5-5.0) g/dL 05/30/20 05/30/20 05/30/20 Range/Units 11:08 17:00 21:22 Plt Count (150-450) k/uL Lymphocytes # (1.0-4.8) k/uL Chloride (98-107) mmol/L BUN (9-20) mg/dL POC Glucose (mg/dL) 122 H 123 H 183 H (75-99) mg/dL Calcium (8.4-10.2) mg/dL Total Protein (6.3-8.2) g/dL Albumin (3.5-5.0) g/dL Microbiology - Last 24 Hours (Table) 05/25/20 05:00 Blood Culture - Preliminary Blood No Growth after 120 hours 05/25/20 04:45 Blood Culture - Preliminary Blood No Growth after 120 hours Assessment and Plan Assessment: Acute hypoxic respiratory failure Bilateral covid 19 pneumonia Sepsis due to above Atrial fibrillation with controlled ventricular response Elevated tropes Intravascular volume depletion and dehydration Metabolic alkalosis/contraction alkalosis Elevated lactic acid Bilateral lower extremity lymphedema Prostate cancer Plan: IV steroids Deep breathing exercises incentive spirometry Supplemental oxygen Prone positioning Lovenox 40 mg subcu every 12 IV Remdesivir for 5 days Would titrate oxygen down as tolerated keeping saturation over 92% and above Time with Patient: Greater than 30
[2020-05-31] MEDS: LIDOCAINE VISCOUS 2% 15 ML CUP MUCOUS MEM SCH ×5 (00:31→22:26)
[2020-05-31] MEDS: BENZOCAINE/MENTHOL LOZENG 1 EACH LOZENGE MUCOUS MEM SCH ×8 (00:31→23:38)
--- NOTE | 2020-05-31 03:30 | PN ---
PROGRESS NOTE DATE OF SERVICE: 05/30/2020 REASON FOR FOLLOWUP: COVID-19 pneumonia. INTERVAL HISTORY: The patient is currently afebrile, has been breathing comfortably. Cough has decreased in intensity. No chest pain. No abdominal pain or diarrhea. PHYSICAL EXAMINATION: Blood pressure 186/74 with a pulse of 69, temperature 97.5. He is 94% on 5 L nasal cannula. General description is an elderly male lying in bed in no distress. RESPIRATORY SYSTEM: Unlabored breathing, decreased intensity of breath sounds. No wheeze. HEART: S1, S2. Regular rate and rhythm. ABDOMEN: Soft, no tenderness. LABS: Hemoglobin 15.4, white count 5.7. BUN of 36, creatinine 0.83. DIAGNOSTIC IMPRESSION AND PLAN: Patient with acute COVID-19 infection in this patient has completed his remdesivir therapy, currently on Solu-Medrol, Lovenox, zinc sulfate to continue along with respiratory support. Monitor clinical course closely. SHANE / KIESHA: [id number] /
--- NOTE | 2020-05-31 04:15 | PN ---
PROGRESS NOTE An 89-year-old white male, remains fatigued, weakness with positive COVID. Temperature 97.3, pulse 60s, respiratory rate 17 to 18, blood pressure is 115 to 180s over 70s, O2 of 94% on 5 L. CARDIOVASCULAR: S1, S2. LUNGS" decreased breath sounds x4, wheezes x4. HEMATOLOGY: Lymphedema type changes. PSYCH: Fair mood and affect. ASSESSMENT: 1. Lymphedema. 2. Diastolic congestive heart failure. 3. COVID positivity. 4. Chronic obstructive pulmonary disease. 5. Dementia. Prognosis extremely guarded. Continue with oxygenation. Increase diet intake, protein supplementation. PT, OT. Possible discharge back to rehab center after 5 days of remdesivir is done. MMODL / IJN: [id number] /
[2020-05-31] MEDS: LEVOTHYROXINE 75 MCG TAB PO SCH (05:32)
[2020-05-31] MEDS: SODIUM CHLORIDE 0.9% 1,000 ML IV SCH ×4 (05:34→23:44)
[2020-05-31 06:41] LABS: Basophils % (A) 0 %; Eosinophils % (A) 0 %; HCT 46.6 % (39.0-53.0); HGB 15.8 gm/dL (13.0-17.5); Lymphocytes # (A) 0.6 k/uL (1.0-4.8); Lymphocytes % (A) 5 %; MCH 32.9 pg (25.0-35.0); MCHC 33.9 g/dL (31.0-37.0); Mean Platelet Volume 7.1; Monocytes # (A) 0.5 k/uL (0-1.0); Monocytes % (A) 5 %; Neutrophils % (A) 89 %; Platelet Count 126 k/uL (150-450); WBC 10.2 k/uL (3.8-10.6)
[2020-05-31 07:09] LABS: Glucose,Whole Blood 108 mg/dL (75-99)
[2020-05-31] MEDS: methylPREDNISolone SOD SUCCI 40 MG/ML 1 ML VIAL IV SCH ×3 (08:48→23:40)
[2020-05-31] MEDS: guaiFENesin 600 MG TABLET.ER PO SCH ×2 (08:48→22:19)
[2020-05-31] MEDS: ZINC SULFATE 220 MG CAP PO SCH (08:49)
[2020-05-31] MEDS: CHOLECALCIFEROL 1,000 UNIT TAB PO SCH (08:49)
[2020-05-31] MEDS: ENOXAPARIN 40 MG/0.4 ML SYRINGE SQ SCH ×2 (08:51→22:20)
[2020-05-31] MEDS: DOXYCYCLINE 100 MG CAP PO SCH ×2 (08:51→22:19)
[2020-05-31] MEDS: POTASSIUM BICARBONATE/CIT AC 20 MEQ TABLET.EFF PO SCH ×3 (08:51→22:20)
[2020-05-31] MEDS: SYMBICORT 160-4.5 MCG INHALER INHALATION SCH ×2 (09:24→20:31)
[2020-05-31 11:01] LABS: African American GFR (CKD) 91.8 (60.0-200.0); Albumin 2.5 g/dL (3.80-4.90); Albumin/Globulin Ratio 1.19 (1.60-3.17); Anion Gap 8.4 mmol/L (4.00-12.00); BUN/Creat Ratio 43.75 Ratio (12.00-20.00); Calcium 7.7 mg/dL (8.7-10.3); Carbon Dioxide 20.6 mmol/L (21.6-31.8); Globulin 2.1 g/dL (1.6-3.3); Non-African American GFR(CKD) 79.2 (60.0-200.0); Potassium 3.8 mmol/L (3.5-5.5); Total Bilirubin 1.2 mg/dL (0.2-1.2); Total Protein 4.6 g/dL (6.2-8.2)
[2020-05-31 11:35] LABS: Glucose,Whole Blood 125 mg/dL (75-99)
[2020-05-31] MEDS: ALBUTEROL HFA INHALER INHALATION PRN ×3 (12:27→20:31)
[2020-05-31] MEDS: FUROSEMIDE 40 MG TAB PO SCH (13:01)
--- NOTE | 2020-05-31 13:47 | P.PN ---
Subjective Progress Note Date: 05/31/20 Principal diagnosis: Acute hypoxic respiratory failure Bilateral covid 19 pneumonia Sepsis due to above Atrial fibrillation with controlled ventricular response Elevated tropes Intravascular volume depletion and dehydration Metabolic alkalosis/contraction alkalosis Elevated lactic acid Bilateral lower extremity lymphedema Prostate cancer 05/31/2020, patient seen eval examined during the rounds labs reviewed medications reviewed, on 5 L saturation is 94%, would recommend to taper oxygen down as tolerated, remains on standard therapy 05/30/2020, patient seen eval examined during the rounds, shortness of breath has stable, and lymphedema of the lower extremity remains stable, patient afebrile on 5 L oxygen saturation is 94%, blood cultures 2 negative 05/29/2020, patient seen eval examined during the rounds labs reviewed medications reviewed, shortness of breath is slightly better swelling the lower extremity stable with stable lymphedema, patient remains afebrile with stable hemodynamics oxygen saturation 5 L 96% however, patient remains on therapy 05/28/2020, patient seen eval examined during rounds labs reviewed medications reviewed, more awake and alert, swelling in the lower extremity and lymphedema slightly better now patient has refused physical therapy today, patient remains on active viral therapy for covert 19 pneumonia 05/27/2020, patient seen and evaluated examined during the rounds labs reviewed medications reviewed care plan discussed, patient still congested, intermittent cough is present, appears wet but however no expectorant is present, we'll continue IV steroids put patient on doxycycline as well send sputum for culture This is a 89-year-old male with complex past medical history resident of [facility] he was noted to be more short of breath coughing sent emergency department for further evaluation his past medical history significant for congestive heart failure, hypothyroidism, COPD, prostate cancer, history of the lower extremity edema, hypertension hypertensive cardiovascular disease, on arrival he was afebrile but however tachypneic with significant hypoxia his oxygen saturation is 80% on room air, blood pressure is marginal, chemistry Sr. of metabolic contraction alkalosis, lactic acid is high at 3.4, his EKG sister of atrial fibrillation with controlled ventricular response, QTC is mildly elevated for 460, drops are elevated, chest x-ray revealed developing pneumonia and left lower lobe, also patchy infiltrate identified in right upper and middle lobe, he has covert 19 pneumonia, currently is being treated with Lovenox, Solu- Medrol and continuation of his home medications, Objective - Vital Signs Vital signs: Vital Signs Temp 97.6 F 05/31/20 10:31 Pulse 65 05/31/20 10:31 Resp 20 05/31/20 10:31 BP 116/73 05/31/20 12:05 Pulse Ox 94 L 05/31/20 10:31 Intake & Output 05/30/20 05/31/20 05/31/20 18:59 06:59 18:59 Intake Total 300 1040 Balance 300 1040 Weight 131.542 kg Intake: Intake, IV Titration 250 1040 Amount Remdesivir 100 mg In 250 Sodium Chloride 0.9% 250 ml @ 250 mls/hr IVPB DAILY [facility] Rx#:[id number] Sodium Chloride 0.9% 1, 1040 000 ml @ 130 mls/hr IV . Q7H42M [facility] Rx#:[id number] Oral 50 Other: Voiding Method Incontinent Incontinent Incontinent # Voids 2 2 - Exam - Constitutional General appearance: average body habitus, cooperative, disheveled - EENT Eyes: PERRLA Ears: bilateral: normal - Neck Neck: normal ROM Carotids: bilateral: upstroke normal - Respiratory Respiratory: bilateral: diminished - Cardiovascular Rhythm: irregularly irregular Heart sounds: normal: S1, S2 - Gastrointestinal General gastrointestinal: normal bowel sounds, soft - Integumentary Integumentary: normal turgor - Musculoskeletal Musculoskeletal: generalized weakness, strength equal bilaterally - Labs CBC & Chem 7: 05/31/20 05:48 05/31/20 05:48 Labs: Abnormal Lab Results - Last 24 Hours (Table) 05/30/20 05/30/20 05/31/20 Range/Units 17:00 21:22 05:48 Plt Count 126 L (150-450) k/uL Neutrophils # 9.0 H (1.3-7.7) k/uL Lymphocytes # 0.6 L (1.0-4.8) k/uL Carbon Dioxide (21.6-31.8) mmol/L BUN (9.0-27.0) mg/dL BUN/Creatinine Ratio (12.00-20.00) Ratio Glucose (70-110) mg/dL POC Glucose (mg/dL) 123 H 183 H (75-99) mg/dL Calcium (8.7-10.3) mg/dL Total Protein (6.2-8.2) g/dL Albumin (3.80-4.90) g/dL Albumin/Globulin Ratio (1.60-3.17) g/dL 05/31/20 05/31/20 05/31/20 Range/Units 05:48 07:05 11:25 Plt Count (150-450) k/uL Neutrophils # (1.3-7.7) k/uL Lymphocytes # (1.0-4.8) k/uL Carbon Dioxide 20.6 L (21.6-31.8) mmol/L BUN 35.0 H (9.0-27.0) mg/dL BUN/Creatinine Ratio 43.75 H (12.00-20.00) Ratio Glucose 116 H (70-110) mg/dL POC Glucose (mg/dL) 108 H 125 H (75-99) mg/dL Calcium 7.7 L (8.7-10.3) mg/dL Total Protein 4.6 L (6.2-8.2) g/dL Albumin 2.50 L (3.80-4.90) g/dL Albumin/Globulin Ratio 1.19 L (1.60-3.17) g/dL Microbiology - Last 24 Hours (Table) 05/25/20 05:00 Blood Culture - Final Blood No Growth after 144 hours 05/25/20 04:45 Blood Culture - Final Blood No Growth after 144 hours Assessment and Plan Assessment: Acute hypoxic respiratory failure Bilateral covid 19 pneumonia Sepsis due to above Atrial fibrillation with controlled ventricular response Elevated tropes Intravascular volume depletion and dehydration Metabolic alkalosis/contraction alkalosis Elevated lactic acid Bilateral lower extremity lymphedema Prostate cancer Plan: IV steroids Deep breathing exercises incentive spirometry Supplemental oxygen Prone positioning Lovenox 40 mg subcu every 12 IV Remdesivir for 5 days Would titrate oxygen down as tolerated keeping saturation over 92% and above Time with Patient: Greater than 30
[2020-05-31] MEDS: ASPIRIN 81 MG PO SCH (15:41)
[2020-05-31 17:08] LABS: Glucose,Whole Blood 130 mg/dL (75-99)
[2020-05-31 20:09] LABS: Glucose,Whole Blood 138 mg/dL (75-99)
--- NOTE | 2020-05-31 23:19 | PN ---
PROGRESS NOTE DATE OF SERVICE: 05/31/2020 REASON FOR CONSULTATION: COVID-19 infection. INTERVAL COURSE: The patient is currently afebrile. He is feeling better breathing comfortably. Denies having any chest pain. Occasional cough. No abdominal pain or diarrhea. PHYSICAL EXAMINATION: Blood pressure is 95/57, pulse of 66, temperature 98. He is 97% on 5 L nasal cannula. General description is an elderly male lying in bed in no distress. Respiratory system: Unlabored breathing with decreased breath sounds. No wheeze. HEART: S1, S2. Regular rate and rhythm. ABDOMEN: Soft, no tenderness. LABS: Hemoglobin is 15.8, white count 10.2, BUN of 35, creatinine 0.8. DIAGNOSTIC IMPRESSION AND PLAN: Patient with acute COVID-19 infection in this patient clinically responding to current treatment has completed his Remdesivir therapy. Currently on Solu-Medrol, Lovenox and zinc and continue supportive care. MMODL / IJN: [id number] /
--- NOTE | 2020-06-01 00:28 | PN ---
PROGRESS NOTE Cardiovascular S1-S2. Lungs clear. GI soft. Lungs transmitted breath sounds. ASSESSMENT: 1. Covid-19 pneumonia. 2. Chronic obstructive pulmonary disease. 3. Lymphedema. 4. Hypertension. 5. Congestive heart failure. 6. Continue current treatment. Follow up in next 24 to 48 hours for possible discharge back to [facility] after Renvela. MMODL / ELEONORAN: [id number] /
[2020-06-01] MEDS: BENZOCAINE/MENTHOL LOZENG 1 EACH LOZENGE MUCOUS MEM SCH ×6 (03:12→23:02)
[2020-06-01] MEDS: LEVOTHYROXINE 75 MCG TAB PO SCH (05:36)
[2020-06-01 07:05] LABS: Glucose,Whole Blood 119 mg/dL (75-99)
[2020-06-01] MEDS: guaiFENesin 600 MG TABLET.ER PO SCH ×2 (08:09→21:55)
[2020-06-01] MEDS: CHOLECALCIFEROL 1,000 UNIT TAB PO SCH (08:09)
[2020-06-01] MEDS: ZINC SULFATE 220 MG CAP PO SCH (08:09)
[2020-06-01] MEDS: methylPREDNISolone SOD SUCCI 40 MG/ML 1 ML VIAL IV SCH ×3 (08:09→23:02)
[2020-06-01] MEDS: POTASSIUM BICARBONATE/CIT AC 20 MEQ TABLET.EFF PO SCH ×3 (08:10→21:59)
[2020-06-01] MEDS: DOXYCYCLINE 100 MG CAP PO SCH ×2 (08:10→21:55)
[2020-06-01] MEDS: LIDOCAINE VISCOUS 2% 15 ML CUP MUCOUS MEM SCH ×4 (08:10→22:06)
[2020-06-01] MEDS: ENOXAPARIN 40 MG/0.4 ML SYRINGE SQ SCH ×2 (08:10→21:55)
[2020-06-01] MEDS: SODIUM CHLORIDE 0.9% 1,000 ML IV SCH ×3 (08:50→22:11)
[2020-06-01] MEDS: SYMBICORT 160-4.5 MCG INHALER INHALATION SCH ×2 (08:56→21:12)
[2020-06-01] MEDS: ALBUTEROL HFA INHALER INHALATION PRN ×2 (08:56→12:55)
[2020-06-01 11:14] LABS: Glucose,Whole Blood 115 mg/dL (75-99)
[2020-06-01] MEDS: FUROSEMIDE 40 MG TAB PO SCH (13:31)
--- NOTE | 2020-06-01 14:00 | P.PN ---
Subjective Progress Note Date: 06/01/20 Principal diagnosis: Acute hypoxic respiratory failure Bilateral covid 19 pneumonia Sepsis due to above Atrial fibrillation with controlled ventricular response Elevated tropes Intravascular volume depletion and dehydration Metabolic alkalosis/contraction alkalosis Elevated lactic acid Bilateral lower extremity lymphedema Prostate cancer June 01, 2020, patient's respiratory status remains marginal however he is on 6 L oxygen breathing comfortably, she remains afebrile, hemodynamic status stable, oxygen saturation 95-97%, we'll continue titrated oxygen down, 05/31/2020, patient seen eval examined during the rounds labs reviewed medications reviewed, on 5 L saturation is 94%, would recommend to taper oxygen down as tolerated, remains on standard therapy 05/30/2020, patient seen eval examined during the rounds, shortness of breath has stable, and lymphedema of the lower extremity remains stable, patient afebrile on 5 L oxygen saturation is 94%, blood cultures 2 negative 05/29/2020, patient seen eval examined during the rounds labs reviewed medicati ons reviewed, shortness of breath is slightly better swelling the lower extremity stable with stable lymphedema, patient remains afebrile with stable hemodynamics oxygen saturation 5 L 96% however, patient remains on therapy 05/28/2020, patient seen eval examined during rounds labs reviewed medications reviewed, more awake and alert, swelling in the lower extremity and lymphedema slightly better now patient has refused physical therapy today, patient remains on active viral therapy for covert 19 pneumonia 05/27/2020, patient seen and evaluated examined during the rounds labs reviewed medications reviewed care plan discussed, patient still congested, intermittent cough is present, appears wet but however no expectorant is present, we'll continue IV steroids put patient on doxycycline as well send sputum for culture This is a 89-year-old male with complex past medical history resident of [facility] he was noted to be more short of breath coughing sent emergency department for further evaluation his past medical history significant for congestive heart failure, hypothyroidism, COPD, prostate cancer, history of the lower extremity edema, hypertension hypertensive cardiovascular disease, on arrival he was afebrile but however tachypneic with significant hypoxia his oxyg en saturation is 80% on room air, blood pressure is marginal, chemistry Sr. of metabolic contraction alkalosis, lactic acid is high at 3.4, his EKG sister of atrial fibrillation with controlled ventricular response, QTC is mildly elevated for 460, drops are elevated, chest x-ray revealed developing pneumonia and left lower lobe, also patchy infiltrate identified in right upper and middle lobe, he has covert 19 pneumonia, currently is being treated with Lovenox, Solu-Medrol and continuation of his home medications, Objective - Vital Signs Vital signs: Vital Signs Temp 97.4 F L 06/01/20 10:26 Pulse 57 L 06/01/20 10:26 Resp 20 06/01/20 10:26 BP 123/77 06/01/20 10:26 Pulse Ox 97 06/01/20 10:26 Intake & Output 05/31/20 06/01/20 06/01/20 18:59 06:59 18:59 Intake Total 200 Balance 200 Intake: IV 200 Sodium Chloride 0.9% 1, 200 000 ml @ 130 mls/hr IV . Q7H42M [facility] Rx#:[id number] Other: Voiding Method Incontinent Incontinent Incontinent # Voids 1 3 1 # Bowel Movements 1 - Exam - Constitutional General appearance: average body habitus, cooperative, disheveled - EENT Eyes: PERRLA Ears: bilateral: normal - Neck Neck: normal ROM Carotids: bilateral: upstroke normal - Respiratory Respiratory: bilateral: diminished - Cardiovascular Rhythm: irregularly irregular Heart sounds: normal: S1, S2 - Gastrointestinal General gastrointestinal: normal bowel sounds, soft - Integumentary Integumentary: normal turgor - Musculoskeletal Musculoskeletal: generalized weakness, strength equal bilaterally - Labs CBC & Chem 7: 05/31/20 05:48 05/31/20 05:48 Labs: Abnormal Lab Results - Last 24 Hours (Table) 05/31/20 05/31/20 06/01/20 Range/Units 16:59 20:07 07:03 POC Glucose (mg/dL) 130 H 138 H 119 H (75-99) mg/dL 06/01/20 Range/Units 11:10 POC Glucose (mg/dL) 115 H (75-99) mg/dL Assessment and Plan Assessment: Acute hypoxic respiratory failure Bilateral covid 19 pneumonia Sepsis due to above Atrial fibrillation with controlled ventricular response Elevated tropes Intravascular volume depletion and dehydration Metabolic alkalosis/contraction alkalosis Elevated lactic acid Bilateral lower extremity lymphedema Prostate cancer Plan: IV steroids Deep breathing exercises incentive spirometry Supplemental oxygen Prone positioning Lovenox 40 mg subcu every 12 IV Remdesivir for 5 days Would titrate oxygen down as tolerated keeping saturation over 92% and above Time with Patient: Greater than 30
[2020-06-01] MEDS: ASPIRIN 81 MG PO SCH (15:55)
[2020-06-01 16:58] LABS: Glucose,Whole Blood 125 mg/dL (75-99)
[2020-06-01 20:25] LABS: Glucose,Whole Blood 123 mg/dL (75-99)
--- NOTE | 2020-06-01 23:29 | PN ---
PROGRESS NOTE DATE OF SERVICE: 06/01/2020 REASON FOR FOLLOWUP: COVID-19 pneumonia. INTERVAL HISTORY: The patient is currently afebrile. The patient is breathing more comfortably. The patient denies having any chest pain. Occasional cough. No abdominal pain or diarrhea. PHYSICAL EXAMINATION: Blood pressure 112/69, pulse of 61, temperature 97.5. He is 99% on 5 L nasal cannula. General description is an elderly male lying in bed in no distress. RESPIRATORY SYSTEM: Unlabored breathing. Clear to auscultation anteriorly. HEART: S1, S2. Regular rate and rhythm. ABDOMEN: Soft. No tenderness. LABS: No new labs have been obtained today. DIAGNOSTIC IMPRESSION AND PLAN: Patient with COVID-19 infection in this patient who completed his remdesivir therapy, currently on steroids zinc; to continue along with respiratory support. Slowly wean off his oxygen and continue with supportive care. MMODL / IJN: [id number] /
[2020-06-02] MEDS: BENZOCAINE/MENTHOL LOZENG 1 EACH LOZENGE MUCOUS MEM SCH ×5 (03:23→20:10)
[2020-06-02] MEDS: LEVOTHYROXINE 75 MCG TAB PO SCH (05:43)
[2020-06-02] MEDS: SODIUM CHLORIDE 0.9% 1,000 ML IV SCH ×2 (07:13→13:40)
[2020-06-02] MEDS: methylPREDNISolone SOD SUCCI 40 MG/ML 1 ML VIAL IV SCH ×2 (07:14→16:33)
[2020-06-02] MEDS: ENOXAPARIN 40 MG/0.4 ML SYRINGE SQ SCH ×2 (07:14→20:10)
[2020-06-02] MEDS: CHOLECALCIFEROL 1,000 UNIT TAB PO SCH (07:14)
[2020-06-02] MEDS: guaiFENesin 600 MG TABLET.ER PO SCH ×2 (07:14→20:11)
[2020-06-02] MEDS: ZINC SULFATE 220 MG CAP PO SCH (07:14)
[2020-06-02] MEDS: DOXYCYCLINE 100 MG CAP PO SCH ×2 (07:15→20:10)
[2020-06-02] MEDS: POTASSIUM BICARBONATE/CIT AC 20 MEQ TABLET.EFF PO SCH ×3 (07:15→20:10)
[2020-06-02 07:16] LABS: Glucose,Whole Blood 140 mg/dL (75-99)
[2020-06-02] MEDS: LIDOCAINE VISCOUS 2% 15 ML CUP MUCOUS MEM SCH ×3 (08:22→20:09)
[2020-06-02] MEDS: ALBUTEROL HFA INHALER INHALATION PRN (09:11)
[2020-06-02] MEDS: SYMBICORT 160-4.5 MCG INHALER INHALATION SCH ×2 (09:13→20:45)
[2020-06-02 10:53] LABS: Glucose,Whole Blood 137 mg/dL (75-99)
[2020-06-02] MEDS: FUROSEMIDE 40 MG TAB PO SCH (13:39)
--- NOTE | 2020-06-02 13:49 | P.PN ---
Subjective Progress Note Date: 06/02/20 Principal diagnosis: Acute hypoxic respiratory failure Bilateral covid 19 pneumonia Sepsis due to above Atrial fibrillation with controlled ventricular response Elevated tropes Intravascular volume depletion and dehydration Metabolic alkalosis/contraction alkalosis Elevated lactic acid Bilateral lower extremity lymphedema Prostate cancer 06/02/2020, patient seen eval examined during the rounds labs reviewed medications reviewed care plan discussed, respiratory status remains marginal but stable, his age and has been lowered down to 4 L saturation 93%, we'll continue to lower down as tolerated keeping saturation more than 90%, June 01, 2020, patient's respiratory status remains marginal however he is on 6 L oxygen breathing comfortably, she remains afebrile, hemodynamic status stable, oxygen saturation 95-97%, we'll continue titrated oxygen down, 05/31/2020, patient seen eval examined during the rounds labs reviewed medications reviewed, on 5 L saturation is 94%, would recommend to taper oxygen down as tolerated, remains on standard therapy 05/30/2020, patient seen eval examined during the rounds, shortness of breath has stable, and lymphedema of the lower extremity remains stable, patient afebrile on 5 L oxygen saturation is 94%, blood cultures 2 negative 05/29/2020, patient seen eval examined during the rounds labs reviewed medications reviewed, shortness of breath is slightly better swelling the lower extremity stable with stable lymphedema, patient remains afebrile with stable hemodynamics oxygen saturation 5 L 96% however, patient remains on therapy 05/28/2020, patient seen eval examined during rounds labs reviewed medications reviewed, more awake and alert, swelling in the lower extremity and lymphedema slightly better now patient has refused physical therapy today, patient remains on active viral therapy for covert 19 pneumonia 05/27/2020, patient seen and evaluated examined during the rounds labs reviewed medications reviewed care plan discussed, patient still congested, intermittent cough is present, appears wet but however no expectorant is present, we'll continue IV steroids put patient on doxycycline as well send sputum for culture This is a 89-year-old male with complex past medical history resident of [facility] he was noted to be more short of breath coughing sent emergency department for further evaluation his past medical history significant for congestive heart failure, hypothyroidism, COPD, prostate cancer, history of the lower extremity edema, hypertension hypertensive cardiovascular disease, on arrival he was afebrile but however tachypneic with significant hypoxia his oxygen saturation is 80% on room air, blood pressure is marginal, chemistry Sr. of metabolic contraction alkalosis, lactic acid is high at 3.4, his EKG sister of atrial fibrillation with controlled ventricular response, QTC is mildly elevated for 460, drops are elevated, chest x-ray revealed developing pneumonia and left lower lobe, also patchy infiltrate identified in right upper and middle lobe, he has covert 19 pneumonia, currently is being treated with Lovenox, Solu- Medrol and continuation of his home medications, Objective - Vital Signs Vital signs: Vital Signs Temp 97.9 F 06/02/20 11:00 Pulse 71 06/02/20 11:00 Resp 18 06/02/20 11:00 BP 123/75 06/02/20 11:00 Pulse Ox 93 L 06/02/20 11:00 Intake & Output 06/01/20 06/02/20 06/02/20 18:59 06:59 18:59 Intake Total 180 590 Output Total 250 Balance 180 340 Intake: IV 180 Sodium Chloride 0.9% 1, 180 000 ml @ 130 mls/hr IV . Q7H42M [facility] Rx#:[id number] Oral 590 Output: Urine 250 Other: Voiding Method Incontinent Incontinent Incontinent # Voids 2 2 # Bowel Movements 1 - Exam - Constitutional General appearance: average body habitus, cooperative, disheveled - EENT Eyes: PERRLA Ears: bilateral: normal - Neck Neck: normal ROM Carotids: bilateral: upstroke normal - Respiratory Respiratory: bilateral: diminished - Cardiovascular Rhythm: irregularly irregular Heart sounds: normal: S1, S2 - Gastrointestinal General gastrointestinal: normal bowel sounds, soft - Integumentary Integumentary: normal turgor - Musculoskeletal Musculoskeletal: generalized weakness, strength equal bilaterally - Labs CBC & Chem 7: 05/31/20 05:48 05/31/20 05:48 Labs: Abnormal Lab Results - Last 24 Hours (Table) 06/01/20 06/01/20 06/02/20 Range/Units 16:56 20:23 07:14 POC Glucose (mg/dL) 125 H 123 H 140 H (75-99) mg/dL 06/02/20 Range/Units 10:52 POC Glucose (mg/dL) 137 H (75-99) mg/dL Assessment and Plan Assessment: Acute hypoxic respiratory failure Bilateral covid 19 pneumonia Sepsis due to above Atrial fibrillation with controlled ventricular response Elevated tropes Intravascular volume depletion and dehydration Metabolic alkalosis/contraction alkalosis Elevated lactic acid Bilateral lower extremity lymphedema Prostate cancer Plan: IV steroids, can be changed to oral Deep breathing exercises incentive spirometry Supplemental oxygen Prone positioning Lovenox 40 mg subcu every 12 IV Remdesivir for 5 days Would titrate oxygen down as tolerated keeping saturation over 92% and above Time with Patient: Greater than 30
[2020-06-02] MEDS: ASPIRIN 81 MG PO SCH (16:33)
[2020-06-02 16:45] LABS: Glucose,Whole Blood 145 mg/dL (75-99)
--- NOTE | 2020-06-02 18:06 | PN ---
PROGRESS NOTE DATE OF SERVICE: 06/01/2020 This is an 89-year-old white male, extremely weak and fatigued. He wants to stay a couple more days. Still having difficulty breathing. Maintains low 90s on 4 L. Lungs reveal scattered rhonchi. He is weak, fatigued. There is lymphedema in his legs. HEART: S1, S2. Abdomen is soft. ASSESSMENT: 1. COVID-19; completed remdesivir therapy. 2. Chronic obstructive pulmonary disease. 3. Lymphedema. 4. Diastolic heart failure. Prognosis extremely guarded. Get nutritional supplements in him and see how he does in the next day or two. MMODL / IJN: [id number] /
--- NOTE | 2020-06-02 18:20 | PN ---
PROGRESS NOTE DATE OF SERVICE: 06/02/2020 This is an 89-year-old white male with COVID pneumonia, acute on chronic hypoxemic respiratory failure, currently on 4 L oxygen, saturation in the low 90s. He has been on five-day remdesivir. Discussed the case. With his oral nutrition, possibly going home in the next 24 to 48 hours. Acute hypoxic respiratory failure with COVID-19 pneumonia, sepsis secondary to above, atrial fibrillation, controlled ventricular response, lactic acidosis, lymphedema, prostate cancer. Medicines were reviewed. He is maintained on oxygen 4 L at 93%. Titrate his oxygen to keep his oxygen above 90. Cardiovascular: S1, S2. Lungs: Scattered rhonchi and wheeze. Hematology: Generalized lymphedema. GI: Soft, nontender. Hematology: Negative Homans. ASSESSMENT: 1. As mentioned above, COVID-19. 2. Acute on chronic hypoxemic respiratory failure. 3. COVID-19 pneumonia. 4. Sepsis. 5. Atrial fibrillation. 6. Elevated troponins. 7. Dehydration. 8. Metabolic alkalosis. 9. Elevated lactic acidosis. 10.Bilateral lymphedema. 11.Prostate cancer. Switch to oral steroids, supplemental oxygen, prone positioning. Continue Lovenox q.12. Remdesivir has been finished. Please see further orders. MMODL / IJN: [id number] /
[2020-06-02 19:42] LABS: Glucose,Whole Blood 207 mg/dL (75-99)
--- NOTE | 2020-06-02 23:08 | PN ---
PROGRESS NOTE DATE OF SERVICE: 06/02/2020 REASON FOR FOLLOWUP: COVID-19 pneumonia. INTERVAL HISTORY: The patient is currently afebrile. The patient is breathing comfortably. The patient denies having any chest pain or shortness of breath. He did have some cough. No abdominal pain or diarrhea. PHYSICAL EXAMINATION: Blood pressure 117/73 with a pulse of 63, temperature 98.3. He is 93% on 4 L nasal cannula. General description is an elderly male lying in bed in no distress. RESPIRATORY SYSTEM: Unlabored breathing. Clear to auscultation anteriorly. HEART: S1, S2. Regular rate and rhythm. ABDOMEN: Soft. No tenderness. LABS: No new labs have been obtained today. DIAGNOSTIC IMPRESSION AND PLAN: Patient with acute COVID-19 pneumonia. Patient has completed his remdesivir therapy. Patient is currently on Lovenox, Solu-Medrol, zinc; to continue. Try to wean off his oxygen. Continue supportive care. MMODL / IJN: [id number] /
[2020-06-03] MEDS: BENZOCAINE/MENTHOL LOZENG 1 EACH LOZENGE MUCOUS MEM SCH ×7 (00:25→23:08)
[2020-06-03] MEDS: methylPREDNISolone SOD SUCCI 40 MG/ML 1 ML VIAL IV SCH ×4 (00:25→23:15)
[2020-06-03] MEDS: SODIUM CHLORIDE 0.9% 1,000 ML IV SCH ×2 (00:26→09:42)
[2020-06-03] MEDS: LIDOCAINE VISCOUS 2% 15 ML CUP MUCOUS MEM SCH ×5 (00:26→22:34)
[2020-06-03] MEDS: LEVOTHYROXINE 75 MCG TAB PO SCH (05:42)
[2020-06-03 07:14] LABS: Basophils % (A) 0 %; Eosinophils % (A) 0 %; HCT 44.9 % (39.0-53.0); HGB 15.6 gm/dL (13.0-17.5); Lymphocytes # (A) 0.6 k/uL (1.0-4.8); Lymphocytes % (A) 7 %; MCH 33.3 pg (25.0-35.0); MCHC 34.7 g/dL (31.0-37.0); MCV 95.9 fL (80.0-100.0); Mean Platelet Volume 7.2; Monocytes # (A) 0.4 k/uL (0-1.0); Monocytes % (A) 5 %; Neutrophils # (A) 6.7 k/uL (1.3-7.7); Neutrophils % (A) 87 %; Platelet Count 154 k/uL (150-450); RBC 4.69 m/uL (4.30-5.90); RDW 14.2 % (11.5-15.5); WBC 7.7 k/uL (3.8-10.6)
[2020-06-03] MEDS: ENOXAPARIN 40 MG/0.4 ML SYRINGE SQ SCH ×2 (07:35→19:51)
[2020-06-03] MEDS: ZINC SULFATE 220 MG CAP PO SCH (07:36)
[2020-06-03] MEDS: guaiFENesin 600 MG TABLET.ER PO SCH ×2 (07:36→19:51)
[2020-06-03] MEDS: CHOLECALCIFEROL 1,000 UNIT TAB PO SCH (07:36)
[2020-06-03] MEDS: POTASSIUM BICARBONATE/CIT AC 20 MEQ TABLET.EFF PO SCH ×3 (07:38→22:34)
[2020-06-03] MEDS: DOXYCYCLINE 100 MG CAP PO SCH (07:38)
[2020-06-03] MEDS: SYMBICORT 160-4.5 MCG INHALER INHALATION SCH ×2 (08:42→20:44)
[2020-06-03 11:32] LABS: African American GFR (CKD) 103.3 (60.0-200.0); Albumin 2.4 g/dL (3.80-4.90); Albumin/Globulin Ratio 1.26 (1.60-3.17); Anion Gap 6.4 mmol/L (4.00-12.00); BUN/Creat Ratio 58.33 Ratio (12.00-20.00); Calcium 7.6 mg/dL (8.7-10.3); Carbon Dioxide 28.6 mmol/L (21.6-31.8); Globulin 1.9 g/dL (1.6-3.3); Non-African American GFR(CKD) 89.1 (60.0-200.0); Potassium 4.3 mmol/L (3.5-5.5); Total Bilirubin 1.1 mg/dL (0.2-1.2); Total Protein 4.3 g/dL (6.2-8.2)
--- NOTE | 2020-06-03 14:43 | P.PN ---
Subjective Progress Note Date: 06/03/20 Principal diagnosis: Acute hypoxic respiratory failure Bilateral covid 19 pneumonia Sepsis due to above Atrial fibrillation with controlled ventricular response Elevated tropes Intravascular volume depletion and dehydration Metabolic alkalosis/contraction alkalosis Elevated lactic acid Bilateral lower extremity lymphedema Prostate cancer 06/03/2020, patient seen eval examined, respiratory status continued to improve currently patient is on 3 L oxygen lymphedema of the lower extremity also stable 06/02/2020, patient seen eval examined during the rounds labs reviewed medications reviewed care plan discussed, respiratory status remains marginal but stable, his age and has been lowered down to 4 L saturation 93%, we'll continue to lower down as tolerated keeping saturation more than 90%, June 01, 2020, patient's respiratory status remains marginal however he is on 6 L oxygen breathing comfortably, she remains afebrile, hemodynamic status stable, oxygen saturation 95-97%, we'll continue titrated oxygen down, 05/31/2020, patient seen eval examined during the rounds labs reviewed medications reviewed, on 5 L saturation is 94%, would recommend to taper oxygen down as tolerated, remains on standard therapy 05/30/2020, patient seen eval examined during the rounds, shortness of breath has stable, and lymphedema of the lower extremity remains stable, patient afebrile on 5 L oxygen saturation is 94%, blood cultures 2 negative 05/29/2020, patient seen eval examined during the rounds labs reviewed medications reviewed, shortness of breath is slightly better swelling the lower extremity stable with stable lymphedema, patient remains afebrile with stable hemodynamics oxygen saturation 5 L 96% however, patient remains on therapy 05/28/2020, patient seen eval examined during rounds labs reviewed medications reviewed, more awake and alert, swelling in the lower extremity and lymphedema slightly better now patient has refused physical therapy today, patient remains on active viral therapy for covert 19 pneumonia 05/27/2020, patient seen and evaluated examined during the rounds labs reviewed medications reviewed care plan discussed, patient still congested, intermittent cough is present, appears wet but however no expectorant is present, we'll continue IV steroids put patient on doxycycline as well send sputum for culture This is a 89-year-old male with complex past medical history resident of [facility] he was noted to be more short of breath coughing sent emergency department for further evaluation his past medical history significant for congestive heart failure, hypothyroidism, COPD, prostate cancer, history of the lower extremity edema, hypertension hypertensive cardiovascular disease, on arrival he was afebrile but however tachypneic with significant hypoxia his oxygen saturation is 80% on room air, blood pressure is marginal, chemistry Sr. of metabolic contraction alkalosis, lactic acid is high at 3.4, his EKG sister of atrial fibrillation with controlled ventricular response, QTC is mildly elevated for 460, drops are elevated, chest x-ray revealed developing pneumonia and left lower lobe, also patchy infiltrate identified in right upper and middle lobe, he has covert 19 pneumonia, currently is being treated with Lovenox, Solu- Medrol and continuation of his home medications, Objective - Vital Signs Vital signs: Vital Signs Temp 97.9 F 06/03/20 10:24 Pulse 74 06/03/20 10:24 Resp 18 06/03/20 10:24 BP 117/78 06/03/20 10:24 Pulse Ox 95 06/03/20 10:24 Intake & Output 06/02/20 06/03/20 06/03/20 18:59 06:59 18:59 Intake Total 160 Balance 160 Weight 131.542 kg Intake: IV 160 Sodium Chloride 0.9% 1, 160 000 ml @ 130 mls/hr IV . Q7H42M [facility] Rx#:[id number] Other: Voiding Method Incontinent Incontinent Incontinent # Voids 3 3 1 - Exam - Constitutional General appearance: average body habitus, cooperative, disheveled - EENT Eyes: PERRLA Ears: bilateral: normal - Neck Neck: normal ROM Carotids: bilateral: upstroke normal - Respiratory Respiratory: bilateral: diminished - Cardiovascular Rhythm: irregularly irregular Heart sounds: normal: S1, S2 - Gastrointestinal General gastrointestinal: normal bowel sounds, soft - Integumentary Integumentary: normal turgor - Musculoskeletal Musculoskeletal: generalized weakness, strength equal bilaterally - Labs CBC & Chem 7: 06/03/20 06:37 06/03/20 05:46 Labs: Abnormal Lab Results - Last 24 Hours (Table) 06/02/20 06/02/20 06/03/20 Range/Units 16:43 19:41 05:46 Lymphocytes # (1.0-4.8) k/uL BUN 35.0 H (9.0-27.0) mg/dL BUN/Creatinine Ratio 58.33 H (12.00-20.00) Ratio Glucose 144 H (70-110) mg/dL POC Glucose (mg/dL) 145 H 207 H (75-99) mg/dL Calcium 7.6 L (8.7-10.3) mg/dL Total Protein 4.3 L (6.2-8.2) g/dL Albumin 2.40 L (3.80-4.90) g/dL Albumin/Globulin Ratio 1.26 L (1.60-3.17) g/dL 06/03/20 Range/Units 06:37 Lymphocytes # 0.6 L (1.0-4.8) k/uL BUN (9.0-27.0) mg/dL BUN/Creatinine Ratio (12.00-20.00) Ratio Glucose (70-110) mg/dL POC Glucose (mg/dL) (75-99) mg/dL Calcium (8.7-10.3) mg/dL Total Protein (6.2-8.2) g/dL Albumin (3.80-4.90) g/dL Albumin/Globulin Ratio (1.60-3.17) g/dL Assessment and Plan Assessment: Acute hypoxic respiratory failure Bilateral covid 19 pneumonia Sepsis due to above Atrial fibrillation with controlled ventricular response Elevated tropes Intravascular volume depletion and dehydration Metabolic alkalosis/contraction alkalosis Elevated lactic acid Bilateral lower extremity lymphedema Prostate cancer Plan: IV steroids, can be changed to oral Deep breathing exercises incentive spirometry Supplemental oxygen Prone positioning Lovenox 40 mg subcu every 12 IV Remdesivir for 5 days Would titrate oxygen down as tolerated keeping saturation over 92% and above Time with Patient: Greater than 30
[2020-06-03] MEDS: ASPIRIN 81 MG PO SCH (15:04)
[2020-06-03] MEDS: FUROSEMIDE 40 MG TAB PO SCH (15:05)
[2020-06-03 15:36] LABS: C Reactive Protein 1.7 mg/dL (0.0-0.8)
--- NOTE | 2020-06-03 21:57 | PN ---
PROGRESS NOTE DATE OF SERVICE: 06/03/2020 REASON FOR FOLLOWUP: COVID-19 pneumonia. INTERVAL HISTORY: The patient is currently afebrile, has been breathing comfortably. The patient did have a congested cough, though not bringing up any sputum. No nausea or vomiting, abdominal pain or diarrhea reported. PHYSICAL EXAMINATION: Blood pressure 113/75 with a pulse of 64, temperature 97.5. He is 96% on 1 L nasal cannula. General description is an elderly male lying in bed in no distress. RESPIRATORY SYSTEM: Unlabored breathing with decreased intensity of breath sounds. No wheeze. HEART: S1, S2. Regular rate and rhythm. ABDOMEN: Soft. No tenderness. LAB: Hemoglobin is 15.3, white count 7.7, BUN of 35, creatinine 0.6. DIAGNOSTIC IMPRESSION AND PLAN: Patient with acute COVID-19 pneumonia in this patient who has completed his remdesivir therapy. He is currently on anticoagulation and zinc. He has been weaned off his oxygen. Continue with supportive care. MMODL / IJN: [id number] /
[2020-06-04] MEDS: BENZOCAINE/MENTHOL LOZENG 1 EACH LOZENGE MUCOUS MEM SCH ×5 (03:42→20:09)
[2020-06-04] MEDS: SODIUM CHLORIDE 0.9% 1,000 ML IV SCH ×2 (03:49→11:32)
[2020-06-04] MEDS: LEVOTHYROXINE 75 MCG TAB PO SCH (05:22)
[2020-06-04] MEDS: SYMBICORT 160-4.5 MCG INHALER INHALATION SCH ×2 (09:05→22:22)
[2020-06-04] MEDS: ENOXAPARIN 40 MG/0.4 ML SYRINGE SQ SCH ×2 (09:24→21:30)
[2020-06-04] MEDS: methylPREDNISolone SOD SUCCI 40 MG/ML 1 ML VIAL IV SCH ×2 (09:24→16:40)
[2020-06-04] MEDS: ZINC SULFATE 220 MG CAP PO SCH (09:24)
[2020-06-04] MEDS: guaiFENesin 600 MG TABLET.ER PO SCH ×2 (09:24→21:30)
[2020-06-04] MEDS: CHOLECALCIFEROL 1,000 UNIT TAB PO SCH (09:24)
[2020-06-04] MEDS: LIDOCAINE VISCOUS 2% 15 ML CUP MUCOUS MEM SCH ×4 (09:31→22:37)
[2020-06-04] MEDS: POTASSIUM BICARBONATE/CIT AC 20 MEQ TABLET.EFF PO SCH ×3 (09:31→22:37)
[2020-06-04] MEDS: FUROSEMIDE 40 MG TAB PO SCH (14:35)
[2020-06-04] MEDS: ASPIRIN 81 MG PO SCH (16:42)
--- NOTE | 2020-06-04 23:06 | PN ---
PROGRESS NOTE DATE OF SERVICE: 06/04/2020 REASON FOR CONSULTATION: COVID-19 infection. INTERVAL HISTORY: The patient is currently afebrile. Patient is breathing comfortably. The patient denies having chest pain. Did have some cough. No abdominal pain. No diarrhea. PHYSICAL EXAMINATION: Blood pressure 122/65 with a pulse of 74, temperature of 98.6. He is 99% on 2 L nasal cannula. General description: The patient is an elderly male lying in bed in no distress. Respiratory system: Unlabored breathing. Clear to auscultation anteriorly. HEART: S1, S2. Regular rate and rhythm. ABDOMEN: Soft, no tenderness. LABS: Hemoglobin is 15.5, white count 7.7, creatinine 0.6. DIAGNOSTIC IMPRESSION AND PLAN: Patient with acute COVID-19 pneumonia in this patient has completed Remdesivir therapy currently on Lovenox. To continue. Slowing wean off his oxygen. Continue supportive care. MMODL / IJN: [id number] /
[2020-06-05] MEDS: BENZOCAINE/MENTHOL LOZENG 1 EACH LOZENGE MUCOUS MEM SCH ×6 (00:01→20:28)
[2020-06-05] MEDS: methylPREDNISolone SOD SUCCI 40 MG/ML 1 ML VIAL IV SCH ×2 (00:11→09:59)
[2020-06-05] MEDS: SODIUM CHLORIDE 0.9% 1,000 ML IV SCH ×2 (00:16→21:48)
[2020-06-05] MEDS: LEVOTHYROXINE 75 MCG TAB PO SCH (05:56)
[2020-06-05] MEDS: SYMBICORT 160-4.5 MCG INHALER INHALATION SCH ×2 (08:04→19:19)
[2020-06-05] MEDS: ALBUTEROL HFA INHALER INHALATION PRN ×3 (08:04→19:19)
[2020-06-05] MEDS: ENOXAPARIN 40 MG/0.4 ML SYRINGE SQ SCH ×2 (09:59→21:48)
[2020-06-05] MEDS: CHOLECALCIFEROL 1,000 UNIT TAB PO SCH (09:59)
[2020-06-05] MEDS: guaiFENesin 600 MG TABLET.ER PO SCH ×2 (09:59→21:48)
[2020-06-05] MEDS: ZINC SULFATE 220 MG CAP PO SCH (10:00)
[2020-06-05] MEDS: LIDOCAINE VISCOUS 2% 15 ML CUP MUCOUS MEM SCH ×4 (10:00→22:25)
[2020-06-05 11:34] LABS: African American GFR (CKD) >90 (>60 ml/min/1.73 sqM); Anion Gap 3 mmol/L; Blood Urea Nitrogen 37 mg/dL (9-20); Calcium 7.7 mg/dL (8.4-10.2); Carbon Dioxide 27 mmol/L (22-30); Chloride 100 mmol/L (98-107); Glucose 163 mg/dL (74-99); Non-African American GFR(CKD) 81 (>60 ml/min/1.73 sqM); Potassium 3.3 mmol/L (3.5-5.1); Sodium 130 mmol/L (137-145)
[2020-06-05] MEDS ORDERED: POTASSIUM CHLORIDE ER 20 MEQ TAB.ER PO STA (12:50)
--- NOTE | 2020-06-05 12:55 | P.PN ---
Subjective Patient is admitted for acute hypoxic respiratory failure secondary to covid 19 pneumonia. Patient is also on Lasix presently although patient is bit hyponatremic patient clinically doesn't appear to be volume overloaded but apparently had lymphedema of the bilateral lower extremity is because of which patient is on Lasix which will be held at this time. Will repeat basic metabolic profile tomorrow patient also treated for A. fib with rapid and regular rate patient appears to have chronic A. fib presently rate controlled. Potassium will be replaced the patient is hypokalemic because of her diuretics. Constitutional: Denied any fatigue denied any fever. Cardio vascular: denied any chest pain, palpitations Gastrointestinal denied any nausea vomiting Pulmonary: Denied any shortness of breath cough Neurologic denied any new focal deficits All inpatient medications were reviewed and appropriate changes in these medications as dictated in the interval history and assessment and plan. Objective - Vital Signs Vital signs: Vital Signs Temp 97.6 F 06/05/20 11:00 Pulse 55 L 06/05/20 11:00 Resp 18 06/05/20 11:00 BP 102/54 06/05/20 11:00 Pulse Ox 94 L 06/05/20 11:00 Intake & Output 06/04/20 06/05/20 06/05/20 18:59 06:59 18:59 Intake Total 600 240 Output Total 250 Balance 600 -10 Intake: Intake, IV Titration 600 Amount Sodium Chloride 0.9% 1, 600 000 ml @ 50 mls/hr IV . Q20H [facility] Rx#:[id number] Oral 240 Output: Urine 250 Other: Voiding Method Incontinent Incontinent # Voids 3 # Bowel Movements 1 - Exam PHYSICAL EXAMINATION: GENERAL: The patient is alert and oriented x3, not in any acute distress. Well developed, well nourished. HEENT: Pupils are round and equally reacting to light. EOMI. No scleral icterus. No conjunctival pallor. Normocephalic, atraumatic. No pharyngeal erythema. No thyromegaly. CARDIOVASCULAR: S1 and S2 present. No murmurs, rubs, or gallops. PULMONARY: Expiratory wheezing on exam ABDOMEN: Soft, nontender, nondistended, normoactive bowel sounds. No palpable organomegaly. MUSCULOSKELETAL: No joint swelling or deformity. EXTREMITIES: No cyanosis, clubbing, or pedal edema. NEUROLOGICAL: Gross neurological examination did not reveal any focal deficits. SKIN: No rashes. Note: Because of COVID 19 isolation, some of the history and physical exam findings are indirect and obtained from nursing staff, and other physician examinations to avoid unnecessary contact with the patient. - Labs CBC & Chem 7: 06/03/20 06:37 06/05/20 11:08 Labs: Abnormal Lab Results - Last 24 Hours (Table) 06/05/20 Range/Units 11:08 Sodium 130 L (137-145) mmol/L Potassium 3.3 L (3.5-5.1) mmol/L BUN 37 H (9-20) mg/dL Glucose 163 H (74-99) mg/dL Calcium 7.7 L (8.4-10.2) mg/dL Assessment and Plan Plan: Acute hypoxic respiratory failure secondary to Covid 19: Continue with oral steroids Bilateral covid 19 pneumonia Chronic Atrial fibrillation with controlled ventricular response -Hyponatremia: Secondary to Lasix which will be held. Hypokalemia: Secondary to Lasix which will be held and potassium was supplemented Metabolic alkalosis/contraction alkalosis: Holding Lasix as mentioned above Bilateral lower extremity lymphedema: Will use compression socks Prostate cancer -DVT prophylaxis: Lovenox
[2020-06-05] MEDS: NYSTATIN 100,000 UNIT/ML SUSP 500,000 UNIT/5 ML CUP PO SCH ×3 (13:30→21:48)
[2020-06-05] MEDS: POTASSIUM BICARBONATE/CIT AC 20 MEQ TABLET.EFF PO SCH ×3 (15:05→21:49)
[2020-06-05] MEDS: ASPIRIN 81 MG PO SCH (18:02)
[2020-06-06] MEDS: BENZOCAINE/MENTHOL LOZENG 1 EACH LOZENGE MUCOUS MEM SCH ×6 (00:23→20:04)
--- NOTE | 2020-06-06 01:32 | PN ---
PROGRESS NOTE DATE OF SERVICE: 05/30/2020 REASON FOR FOLLOWUP: COVID-19 pneumonia. INTERVAL HISTORY: Patient is currently afebrile. The patient is breathing comfortably. The patient denies having any chest pain. Did have a cough. No nausea, no vomiting. No abdominal pain. No diarrhea. PHYSICAL EXAMINATION: Blood pressure 115/80 with a pulse of 83, temperature 97.8. He is 96% on 2 L nasal cannula. General description is an elderly male lying in bed in no distress. Respiratory system: Unlabored breathing with decreased breath sounds in the base, with no wheeze. Heart S1, S2. Regular rate and rhythm. ABDOMEN: Soft, no tenderness. LABS: BUN of 37, creatinine 0.75. DIAGNOSTIC IMPRESSION AND PLAN: Patient with acute COVID-19 pneumonia. Patient has completed Remdesivir therapy. Currently on Lovenox, prednisone, zinc to continue. Wean off his oxygen. Continue supportive care. MMODL / IJN: [id number] /
[2020-06-06] MEDS: LEVOTHYROXINE 75 MCG TAB PO SCH (05:32)
[2020-06-06] MEDS: ENOXAPARIN 40 MG/0.4 ML SYRINGE SQ SCH ×2 (07:31→21:09)
[2020-06-06] MEDS: CHOLECALCIFEROL 1,000 UNIT TAB PO SCH (07:31)
[2020-06-06] MEDS: ZINC SULFATE 220 MG CAP PO SCH (07:31)
[2020-06-06] MEDS: guaiFENesin 600 MG TABLET.ER PO SCH ×2 (07:32→21:09)
[2020-06-06] MEDS: NYSTATIN 100,000 UNIT/ML SUSP 500,000 UNIT/5 ML CUP PO SCH ×4 (07:32→21:09)
[2020-06-06] MEDS: POTASSIUM BICARBONATE/CIT AC 20 MEQ TABLET.EFF PO SCH ×3 (07:32→21:09)
[2020-06-06] MEDS: LIDOCAINE VISCOUS 2% 15 ML CUP MUCOUS MEM SCH ×4 (07:33→22:31)
[2020-06-06] MEDS: predniSONE 20 MG TAB PO SCH (07:34)
[2020-06-06] MEDS: FLUCONAZOLE 100 MG TAB PO SCH (07:34)
[2020-06-06] MEDS: SODIUM CHLORIDE 0.9% 1,000 ML IV SCH ×2 (07:35→17:23)
[2020-06-06] MEDS: SYMBICORT 160-4.5 MCG INHALER INHALATION SCH ×2 (09:17→20:57)
[2020-06-06] MEDS: ALBUTEROL HFA INHALER INHALATION PRN ×3 (09:17→20:57)
[2020-06-06 09:32] LABS: Glucose,Whole Blood 75 mg/dL (75-99)
[2020-06-06 09:33] LABS: Glucose,Whole Blood 128 mg/dL (75-99)
[2020-06-06 09:33] LABS: Glucose,Whole Blood 112 mg/dL (75-99)
[2020-06-06 09:33] LABS: Glucose,Whole Blood 85 mg/dL (75-99)
[2020-06-06 09:34] LABS: Glucose,Whole Blood 176 mg/dL (75-99)
[2020-06-06 09:34] LABS: Glucose,Whole Blood 116 mg/dL (75-99)
[2020-06-06 09:35] LABS: Glucose,Whole Blood 135 mg/dL (75-99)
[2020-06-06 09:37] LABS: Glucose,Whole Blood 124 mg/dL (75-99)
[2020-06-06 09:37] LABS: Glucose,Whole Blood 124 mg/dL (75-99)
[2020-06-06 09:38] LABS: Glucose,Whole Blood 103 mg/dL (75-99)
[2020-06-06 09:39] LABS: Glucose,Whole Blood 134 mg/dL (75-99)
[2020-06-06 09:41] LABS: Glucose,Whole Blood 85 mg/dL (75-99)
[2020-06-06 09:41] LABS: Glucose,Whole Blood 157 mg/dL (75-99)
[2020-06-06 09:50] LABS: African American GFR (CKD) 91.8 (60.0-200.0); Anion Gap 7.7 mmol/L (4.00-12.00); BUN/Creat Ratio 46.25 Ratio (12.00-20.00); Calcium 7.4 mg/dL (8.7-10.3); Carbon Dioxide 26.3 mmol/L (21.6-31.8); Non-African American GFR(CKD) 79.2 (60.0-200.0); Potassium 3.6 mmol/L (3.5-5.5)
[2020-06-06 11:22] LABS: Glucose,Whole Blood 98 mg/dL (75-99)
--- NOTE | 2020-06-06 11:35 | P.PN ---
Subjective Patient is admitted for acute hypoxic respiratory failure secondary to covid 19 pneumonia. Patient is also on Lasix presently although patient is bit hyponatremic patient clinically doesn't appear to be volume overloaded but apparently had lymphedema of the bilateral lower extremity is because of which patient is on Lasix which will be held at this time. Will repeat basic metabolic profile tomorrow patient also treated for A. fib with rapid and regular rate patient appears to have chronic A. fib presently rate controlled. Potassium will be replaced the patient is hypokalemic because of her diuretics. 06/06/2020 Patient's serum sodium improved after IV fluids in the past was bit for which will be replaced patient still has significant oral thrush will continue with the nystatin and fluconazole. Review of systems: Unable to obtain All inpatient medications were reviewed and appropriate changes in these medications as dictated in the interval history and assessment and plan. Objective - Vital Signs Vital signs: Vital Signs Temp 97.4 F L 06/06/20 05:05 Pulse 69 06/06/20 05:05 Resp 19 06/06/20 05:05 BP 95/55 06/06/20 05:05 Pulse Ox 94 L 06/06/20 05:05 Intake & Output 06/05/20 06/06/20 06/06/20 18:59 06:59 18:59 Output Total 250 Balance -250 Output: Urine 250 Other: Voiding Method Incontinent Diaper Incontinent # Voids 2 3 3 # Bowel Movements 0 0 - Exam PHYSICAL EXAMINATION: GENERAL: The patient is sleeping arousable. Well developed, well nourished. HEENT: Pupils are round and equally reacting to light. EOMI. No scleral icterus. No conjunctival pallor. Normocephalic, atraumatic. No pharyngeal erythema. No thyromegaly. CARDIOVASCULAR: S1 and S2 present. No murmurs, rubs, or gallops. PULMONARY: Expiratory wheezing on exam ABDOMEN: Soft, nontender, nondistended, normoactive bowel sounds. No palpable organomegaly. MUSCULOSKELETAL: No joint swelling or deformity. EXTREMITIES: No cyanosis, clubbing, or pedal edema. NEUROLOGICAL: Gross neurological examination did not reveal any focal deficits. SKIN: No rashes. Note: Because of COVID 19 isolation, some of the history and physical exam findings are indirect and obtained from nursing staff, and other physician examinations to avoid unnecessary contact with the patient. - Labs CBC & Chem 7: 06/03/20 06:37 06/06/20 05:05 Labs: Abnormal Lab Results - Last 24 Hours (Table) 06/03/20 06/03/20 06/03/20 Range/Units 07:09 11:12 16:37 Sodium (137-145) mmol/L Potassium (3.5-5.1) mmol/L BUN (9-20) mg/dL BUN/Creatinine Ratio (.00-20.00) Ratio Glucose (74-99) mg/dL POC Glucose (mg/dL) 124 H 124 H 103 H (75-99) mg/dL Calcium (8.4-10.2) mg/dL 06/03/20 06/04/20 06/04/20 Range/Units 20:05 17:47 20:47 Sodium (137-145) mmol/L Potassium (3.5-5.1) mmol/L BUN (9-20) mg/dL BUN/Creatinine Ratio (12.00-20.00) Ratio Glucose (74-99) mg/dL POC Glucose (mg/dL) 134 H 112 H 128 H (75-99) mg/dL Calcium (8.4-10.2) mg/dL 06/05/20 06/05/20 06/05/20 Range/Units 07:15 11:08 11:27 Sodium 130 L (137-145) mmol/L Potassium 3.3 L (3.5-5.1) mmol/L BUN 37 H (9-20) mg/dL BUN/Creatinine Ratio (12.00-20.00) Ratio Glucose 163 H (74-99) mg/dL POC Glucose (mg/dL) 116 H 176 H (75-99) mg/dL Calcium 7.7 L (8.4-10.2) mg/dL 06/05/20 06/05/20 06/06/20 Range/Units 17:14 20:11 05:05 Sodium (137-145) mmol/L Potassium (3.5-5.1) mmol/L BUN 37.0 H (9-20) mg/dL BUN/Creatinine Ratio 46.25 H (12.00-20.00) Ratio Glucose (74-99) mg/dL POC Glucose (mg/dL) 135 H 157 H (75-99) mg/dL Calcium 7.4 L (8.4-10.2) mg/dL Assessment and Plan Plan: Acute hypoxic respiratory failure secondary to Covid 19: Continue with oral steroids Bilateral covid 19 pneumonia Chronic Atrial fibrillation with controlled ventricular response -Hyponatremia: Secondary to Lasix which will be held. Improved serum sodium Hypokalemia: Secondary to Lasix which will be held and potassium was supplemented Metabolic alkalosis/contraction alkalosis: Holding Lasix as mentioned above Bilateral lower extremity lymphedema: Will use compression socks Prostate cancer -DVT prophylaxis: Lovenox
[2020-06-06] MEDS: ASPIRIN 81 MG PO SCH (15:49)
[2020-06-06 17:33] LABS: Glucose,Whole Blood 136 mg/dL (75-99)
--- NOTE | 2020-06-06 17:47 | PN ---
PROGRESS NOTE DATE OF SERVICE: 06/06/2020 REASON FOR FOLLOWUP: 1. Covid 19 pneumonia. 2. Oral thrush. INTERVAL HISTORY: The patient is currently afebrile. The patient is breathing comfortably, currently on 2 L nasal cannula. No chest pain or cough. Oral soreness has improved. He is able to eat some of his lunch today. No vomiting or diarrhea reported by nursing staff. PHYSICAL EXAMINATION: Blood pressure is 95/55, pulse of 69. Temperature 97.2. He is 94% on 2 L nasal cannula. General description is an elderly male lying in bed in no distress. Respiratory system: Unlabored breathing, decreased breath sounds in the base, with no wheeze. Heart S1, S2. Regular rate and rhythm. Abdomen soft, no tenderness. LABS: BUN of 37, creatinine 0.8. DIAGNOSTIC IMPRESSION AND PLAN: 1. Patient with acute COVID-19 pneumonia in this patient has completed his Remdesivir therapy, currently on prednisone. 2. Oral thrush. Nystatin swish and swallow and oral Diflucan. Continue supportive care. MMODL / IJN: [id number] /
[2020-06-06 20:09] LABS: Glucose,Whole Blood 114 mg/dL (75-99)
[2020-06-07] MEDS: BENZOCAINE/MENTHOL LOZENG 1 EACH LOZENGE MUCOUS MEM SCH ×4 (01:24→11:27)
[2020-06-07] MEDS: LEVOTHYROXINE 75 MCG TAB PO SCH (05:52)
[2020-06-07 07:06] LABS: Glucose,Whole Blood 99 mg/dL (75-99)
[2020-06-07] MEDS: ALBUTEROL HFA INHALER INHALATION PRN ×2 (08:19→11:43)
[2020-06-07] MEDS: SYMBICORT 160-4.5 MCG INHALER INHALATION SCH (08:19)
[2020-06-07] MEDS: SODIUM CHLORIDE 0.9% 1,000 ML IV SCH (09:21)
[2020-06-07] MEDS: LIDOCAINE VISCOUS 2% 15 ML CUP MUCOUS MEM SCH (09:21)
[2020-06-07] MEDS: ENOXAPARIN 40 MG/0.4 ML SYRINGE SQ SCH (09:21)
[2020-06-07] MEDS: FLUCONAZOLE 100 MG TAB PO SCH (09:22)
[2020-06-07] MEDS: CHOLECALCIFEROL 1,000 UNIT TAB PO SCH (09:22)
[2020-06-07] MEDS: POTASSIUM BICARBONATE/CIT AC 20 MEQ TABLET.EFF PO SCH (09:22)
[2020-06-07] MEDS: predniSONE 20 MG TAB PO SCH (09:22)
[2020-06-07] MEDS: guaiFENesin 600 MG TABLET.ER PO SCH (09:22)
[2020-06-07] MEDS: ZINC SULFATE 220 MG CAP PO SCH (09:22)
[2020-06-07] MEDS: NYSTATIN 100,000 UNIT/ML SUSP 500,000 UNIT/5 ML CUP PO SCH (09:27)
[2020-06-07 10:54] LABS: Glucose,Whole Blood 107 mg/dL (75-99)
--- NOTE | 2020-06-07 11:16 | XR ---
EXAMINATION TYPE: XR chest 1V portable DATE OF EXAM: 06/07/2020 CLINICAL HISTORY: Difficulty breathing progress study. Covid 19 positive. TECHNIQUE: Single AP portable upright view of the chest is obtained. COMPARISON: Chest x-ray from 13 days earlier and older studies FINDINGS: Persistent cardiomegaly with left basilar opacity. Right lung remains clear. No pleural ef fusion or pneumothorax seen bilaterally. Atherosclerotic and ectatic thoracic aorta causing right-mark ed tracheal deviation redemonstrated. Osseous structures are intact. IMPRESSION: Overall stable findings, cardiomegaly and chronic left basilar opacity. No new focal in filtrate identified.
[2020-06-07 11:29] VITALS: BP 89/57; PULSE 62; RESP 17; TEMP 98.7
--- NOTE | 2020-06-07 13:04 | P.DS ---
Providers Date of admission: 05/25/20 06:45 Expected date of discharge: 06/07/20 Attending physician: Riley Jama Consults: 05/25/20 17:37 Consult Physician Routine Consulting Provider: Carmel Walker Consult Reason/Comments: covid Do you want consulting provider notified?: Yes 05/25/20 17:38 Consult Physician Routine Consulting Provider: Tirso Griffith Consult Reason/Comments: a fib Do you want consulting provider notified?: Yes 05/25/20 17:39 Consult Physician Routine Consulting Provider: Dedrick Orozco Consult Reason/Comments: covid pneumonia Do you want consulting provider notified?: Yes Primary care physician: [facility] Course: Final diagnosis Acute hypoxic respiratory failure secondary to Covid 19 Bilateral covid 19 pneumonia Chronic Atrial fibrillation with controlled ventricular response Hyponatremia: Secondary to Lasix, improved Hypokalemia: Secondary to Lasix, improved Metabolic alkalosis/contraction alkalosis Bilateral lower extremity lymphedema Prostate cancer DVT prophylaxis No code Discharge disposition Patient is being discharged in a stable condition with guarded prognosis to [facility]. Patient will up with Dr. Jama upon discharge. Patient will continue with oral antibiotics in the form of doxycycline 100 mg twice daily for the next 7 days along with a prednisone taper to complete the course. Patient will also continue on Diflucan 100 mg daily along with nystatin oral swish for the next 7 days. Total time taken is greater than 35 minutes. History of present illness This is an 89-year-old male who was recently admitted with acute hypoxic respiratory failure secondary to Covid 19 pneumonia and was being closely monitored. Patient is a resident at [facility] and will be returning there upon discharge. Patient also was found to be a bit hyponatremic and Lasix was held. Patient continues to have lower extremity edema and swelling and will continue with Jose wraps from toes up to the knees of bilateral lower extremities and elevate the lower extremities while at rest. Patient does have a history of chronic atrial fibrillation and was treated with A. fib with rapid ventricular rate and is currently sinus. Patient was given gentle IV hydration and will continue to hold Lasix in the outpatient setting until primary care follow-up. Patient continues to have significant oral thrush noted on exam and will continue with Diflucan 100 mg daily for the next 7 days along with nystatin swish the next 7 days. Patient continues to be mostly bedbound and will continue with heparin subcu injections twice daily. Patient will also continue on oral antibiotics in the form of doxycycline 100 mg twice daily for the next 7 days and then may discontinue along with a prednisone taper to complete the course. Continue with Accu-Cheks before meals at bedtime and treat accordingly with sliding scale. Repeat Covid 19 testing continues to be positive. No reports of chest pain , palpitations, or or worsening shortness of breath. Patient has been afebrile. No reports of nausea or vomiting noted and patient will continue with dysphasia 1 pured diet with nectar thickened liquids and one-to-one supervision and aspiration precautions of the head of the bed elevated 30-45. Will be returning to [facility] today. Guarded prognosis. On exam vital signs are stable. Temp is 98.7F, pulse is 62, respirations are 17, blood pressure is 89/57, oxygen saturation is 92% on 2 liters via nasal cannula. Cardio S1, S2 are muffled. Respiratory system shows diminished breath sounds at the bases with some scattered rhonchi noted. Abdomen is soft and obese, and nontender. Nervous system shows diffuse weakness. Please refer to medication reconciliation sheet for a list of medications. Patient Condition at Discharge: Fair Plan - Discharge Summary Discharge Rx Participant: No New Discharge Prescriptions: New Benzocaine/Menthol Lozeng [Cepacol lozenge] 1 each MUCOUS MEM Q4HR lozenge Budesonide-Formot 160-4.5 Mcg [Symbicort 160-4.5 Mcg Inhaler] 2 puff INHALATION RT-BID puff Doxycycline [Vibramycin] 100 mg PO BID cap Fluconazole [Diflucan] 100 mg PO DAILY tab predniSONE 10 mg PO DIRECTED #30 tab Heparin Sodium,Porcine [Heparin Sodium] 5,000 unit SQ Q12HR #10 vial Continue Potassium Chloride [Klor-Con 20] 20 meq PO TID@0800,1200,1700 Levothyroxine Sodium [Synthroid] 150 mcg PO DAILY@0600 guaiFENesin-DM 100-10MG/5ML [Robitussin DM] 10 ml PO Q4H PRN PRN Reason: Cough Magnesium Hydroxide [Milk of Magnesia Concentrate] 7,200 mg PO DAILY PRN PRN Reason: Constipation Artificial Tears-Hypromellose [Artificial Tear Drops] 2 drops BOTH EYES Q6H PRN PRN Reason: Dry Eye(S) Loperamide HCl [Imodium A-D] 2 mg PO Q6H PRN PRN Reason: Diarrhea Ipratropium-Albuterol Nebulize [Duoneb 0.5 mg-3 mg/3 ml Soln] 3 ml INHALATION RT-Q6H PRN PRN Reason: Shortness Of Breath Na Phos,M-B/Na Phos,Di-Ba [Fleet Adult] 133 ml RECTAL DAILY PRN PRN Reason: Constipation bisacodyL [Dulcolax] 10 mg RECTAL DAILY PRN PRN Reason: Constipation Acetaminophen Tab [Tylenol] 650 mg PO Q4H PRN PRN Reason: Pain Or Fever > 100.5 Nystatin 100,000 Unit/ml Susp [Mycostatin Oral Susp] 5 ml PO ACHS INSULIN ASPART (NovoLOG) [NovoLOG (formulary)] See Protocol SQ ACHS lidocaine HCL [Lidocaine HCl Viscous] 5 ml MM QID@10,14,19,23 Liquacal 30 ml PO BID@0800,1700 guaiFENesin [Mucinex] 1,200 mg PO BID Zinc Sulfate 220 mg PO DAILY Cholecalciferol [Vitamin D3 (25 Mcg = 1000 Iu)] 2,000 unit PO DAILY Ascorbic Acid [Vitamin C] 1,000 mg PO DAILY Aspirin EC [Ecotrin Low Dose] 81 mg PO DAILY@1700 Albuterol Inhaler [Ventolin Hfa Inhaler] 2 puff PO RT-Q4H PRN PRN Reason: Wheezing Discontinued Furosemide [Lasix] 80 mg PO DAILY Spironolactone [Aldactone] 25 mg PO DAILY Furosemide [Lasix] 40 mg PO DAILY@1400 Fluticasone/Vilanterol [Breo Ellipta 200-25 Mcg INH] 1 puff INHALATION RT- DAILY Enoxaparin Sodium 40 mg SQ DAILY Discharge Medication List Levothyroxine Sodium [Synthroid] 150 mcg PO DAILY@0600 07/12/16 [History] Potassium Chloride [Klor-Con 20] 20 meq PO TID@0800,1200,1700 07/12/16 [History] Acetaminophen Tab [Tylenol] 650 mg PO Q4H PRN 06/19/19 [History] Artificial Tears-Hypromellose [Artificial Tear Drops] 2 drops BOTH EYES Q6H PRN 06/19/19 [History] Ipratropium-Albuterol Nebulize [Duoneb 0.5 mg-3 mg/3 ml Soln] 3 ml INHALATION RT-Q6H PRN 06/19/19 [History] Loperamide HCl [Imodium A-D] 2 mg PO Q6H PRN 06/19/19 [History] Magnesium Hydroxide [Milk of Magnesia Concentrate] 7,200 mg PO DAILY PRN 06/19/19 [History] Na Phos,M-B/Na Phos,Di-Ba [Fleet Adult] 133 ml RECTAL DAILY PRN 06/19/19 [History] bisacodyL [Dulcolax] 10 mg RECTAL DAILY PRN 06/19/19 [History] guaiFENesin-DM 100-10MG/5ML [Robitussin DM] 10 ml PO Q4H PRN 06/19/19 [History] Albuterol Inhaler [Ventolin Hfa Inhaler] 2 puff PO RT-Q4H PRN 05/25/20 [History] Ascorbic Acid [Vitamin C] 1,000 mg PO DAILY 05/25/20 [History] Aspirin EC [Ecotrin Low Dose] 81 mg PO DAILY@1700 05/25/20 [History] Cholecalciferol [Vitamin D3 (25 Mcg = 1000 Iu)] 2,000 unit PO DAILY 05/25/20 [History] INSULIN ASPART (NovoLOG) [NovoLOG (formulary)] See Protocol SQ ACHS 05/25/20 [ History] Liquacal 30 ml PO BID@0800,1700 05/25/20 [History] Nystatin 100,000 Unit/ml Susp [Mycostatin Oral Susp] 5 ml PO ACHS 05/25/20 [History] Zinc Sulfate 220 mg PO DAILY 05/25/20 [History] guaiFENesin [Mucinex] 1,200 mg PO BID 05/25/20 [History] lidocaine HCL [Lidocaine HCl Viscous] 5 ml MM QID@10,14,19,23 05/25/20 [History] Benzocaine/Menthol Lozeng [Cepacol lozenge] 1 each MUCOUS MEM Q4HR lozenge 05/31/20 [Rx] Budesonide-Formot 160-4.5 Mcg [Symbicort 160-4.5 Mcg Inhaler] 2 puff INHALATION RT-BID puff 05/31/20 [Rx] Doxycycline [Vibramycin] 100 mg PO BID cap 05/31/20 [Rx] Fluconazole [Diflucan] 100 mg PO DAILY tab 06/07/20 [Rx] Heparin Sodium,Porcine [Heparin Sodium] 5,000 unit SQ Q12HR #10 vial 06/07/20 [Rx] predniSONE 10 mg PO DIRECTED #30 tab 06/07/20 [Rx] Follow up Appointment(s)/Referral(s): Riley Jama MD [Primary Care Provider] - 1-2 days Activity/Diet/Wound Care/Special Instructions: Patient is returning to [facility] Activity as tolerated Continue to hold Lasix until follow-up with primary care provider Continue with Jose wraps from toes to knees on bilateral lower extremity and elevate bilateral lower extremities while at rest Continue with dysphagia level I pured diet with nectar thick liquids and aspiration precautions of the head of the bed elevated 30-45 and one-to-one supervision with meals and assistance Continue monitoring blood sugar before meals and at bedtime and treat accordingly with sliding scale Continue With prednisone taper Continue with antibiotics for the next 7 days and then may discontinue Discharge Disposition: TRANSFER TO SNF/ECF
--- NOTE | 2020-06-07 15:05 | PN ---
PROGRESS NOTE DATE OF SERVICE: 06/07/2020 REASON FOR FOLLOWUP: 1. COVID-19 pneumonia. 2. Oral thrush. INTERIM HISTORY: The patient was seen on rounds early this afternoon. The patient has been afebrile. He was breathing comfortably. No chest pain or cough. No abdominal pain or diarrhea. Oral has improved. PHYSICAL EXAMINATION: Blood pressure is 89/57, pulse of 62, temperature 98.7. He is 92% on 2 L nasal cannula. General description is an elderly male, lying in bed in no distress. RESPIRATORY SYSTEM: Unlabored breathing, clear to auscultation anteriorly. HEART: S1, S2. Regular rate and rhythm. ABDOMEN: Soft, no tenderness. LABS: No new labs have been obtained today. DIAGNOSTIC IMPRESSION AND PLAN: 1. Patient with acute COVID-19 pneumonia. Patient has completed his remdesivir therapy as well as steroids, treatment . 2. Oral thrush. Continue Diflucan and nystatin swish and swallow for about a week. MMODL / IJN: [id number] /
== END 2020-06-07 14:26 | DRG 871 ==
LOC: EC 04:08 → 6NMEDSUR 06:45
PROVIDERS: ADMIT Family Medicine; ATTEND Family Medicine
PROC: XW033E5 Introduction of Remdesivir Anti-infective into Peripheral Vein, Percutaneous Approach, New Technology Group 5 (ICD-10-PCS; principal; 2020-05-26)
PROC: 5A0935A Assistance with Respiratory Ventilation, Less than 24 Consecutive Hours, High Flow/Velocity Cannula (ICD-10-PCS; 2020-06-03)
DX: A41.89 Other specified sepsis (principal); U07.1 COVID-19; J12.89 Other viral pneumonia; J96.21 Acute and chronic respiratory failure with hypoxia; B37.0 Candidal stomatitis; E87.1 Hypo-osmolality and hyponatremia; E87.3 Alkalosis; I48.20 Chronic atrial fibrillation, unspecified; I50.32 Chronic diastolic (congestive) heart failure; J44.0 Chronic obstructive pulmonary disease with (acute) lower respiratory infection; I07.9 Rheumatic tricuspid valve disease, unspecified; C61 Malignant neoplasm of prostate; F03.90 Unspecified dementia, unspecified severity, without behavioral disturbance, psychotic disturbance, mood disturbance, and anxiety; I11.0 Hypertensive heart disease with heart failure; I71.2 Thoracic aortic aneurysm, without rupture; I73.9 Peripheral vascular disease, unspecified; E03.9 Hypothyroidism, unspecified; E66.9 Obesity, unspecified; E86.0 Dehydration; E87.6 Hypokalemia; I44.0 Atrioventricular block, first degree; I87.2 Venous insufficiency (chronic) (peripheral); I89.0 Lymphedema, not elsewhere classified; T50.1X5A Adverse effect of loop [high-ceiling] diuretics, initial encounter; H26.9 Unspecified cataract; R32 Unspecified urinary incontinence; R79.89 Other specified abnormal findings of blood chemistry; E86.9 Volume depletion, unspecified; Z79.82 Long term (current) use of aspirin; Z79.890 Hormone replacement therapy; Z79.899 Other long term (current) drug therapy; Z87.440 Personal history of urinary (tract) infections; Z87.19 Personal history of other diseases of the digestive system; Z88.1 Allergy status to other antibiotic agents; Z88.0 Allergy status to penicillin; Z91.018 Allergy to other foods; Z90.79 Acquired absence of other genital organ(s); Z98.890 Other specified postprocedural states; Z98.41 Cataract extraction status, right eye; Z68.39 Body mass index [BMI] 39.0-39.9, adult; Z82.49 Family history of ischemic heart disease and other diseases of the circulatory system
CPT/HCPCS: 36415; 71045; 80048; 80053; 81003; 83605; 83615; 84484; 85025; 85610; 85730; 86140; 87040; 87635; 93005; 93308; 94640; 99285